=== PATIENT | female | born 1930 | race Caucasian/White ===

== ENCOUNTER 2016-03-11 07:53 | Inpatient (IN) | payer MEDICARE, OTHER ==
[2016-03-11] VITALS (9 sets, daily range): BP systolic 162–203; BP diastolic 77–100; PULSE 79–124; RESP 14–24; O2SAT 95–100
[~2016-03-11] VITALS: Ht 154.9 cm; Wt 55.2 kg
[~2016-03-11 07:53] MED LIST: ALBU8.5H2 INHALATION; ASPI325T32 PO; FENT-2 TOP; LEVO112T4 PO; LORA1TAB PO; LOSA100T29 PO; OMEP20TA86 PO; OXYC10TA8 PO; ROPI2TAB3 PO; SPIR50TA2 PO; VERA240T PO; ZOLP5TAB6 PO
--- NOTE | 2016-03-11 08:05 | ED.REPORT ---
HPI-General Illness Date of Service Mar 11, 2016 ED Provider: Aylin Derrick Patient is an 85 year old female who presents to the ED via EMS complaining of restless leg syndrome exacerbation onset yesterday. Associated symptoms include fever onset a few days ago. She cannot sit still and is adamant about standing at bedside so she can move around. She denies cough, SOB, abdominal pain, vomiting, chest pain, or any other symptoms. She has been struggling with restless leg syndrome for 3-4 years but has never had a flare-up like this before. She took 3 doses of her Ropinirole and Mirapex without relief at 1900 last night. She denies any new medications. She is currently between doctors but seeing Dr. Orion Angulo. Nursing Notes Stated Complaint: CHRONIC LEG PAIN Chief Complaint: General Complaint Nursing Notes Reviewed: Yes Allergies: Coded Allergies: cephalexin (Verified Allergy, Severe, Rash,Itching,, 05/04/15) duloxetine (Verified Allergy, Severe, Rash, 05/04/15) cefazolin (Verified Allergy, Intermediate, RASH, 02/07/15) NSAIDS (Non-Steroidal Anti-Inflamma (Verified Allergy, Mild, GI intolerance., 02/07/15) venlafaxine (Verified Allergy, Mild, Visual disturbance, 02/07/15) gabapentin (Verified Allergy, Unknown, fatigue and diarrhea, 02/07/15) lisinopril (Verified Allergy, Unknown, Cough, 02/07/15) sertraline (Verified Allergy, Unknown, fatigue, 02/07/15) doxycycline (Verified Adverse Reaction, Severe, Nausea,Vomiting, 05/04/15) hydroxyzine (Verified Adverse Reaction, Intermediate, sensitivity: hands and feet get blisters, 02/07/15) Proton Pump Inhibitors (Verified Adverse Reaction, Unknown, epigastric pain, 05/04/15) prednisolone (Verified Adverse Reaction, Unknown, diarrhea, 05/04/15) Scheduled Albuterol HFA (Proair HFA) 8.5 Gm Hfa.aer.ad 2 PUFFS INHALATION Q4H Aspirin (Aspirin) 325 Mg Tablet 325 MG PO BID Fentanyl 75 mcg/hr Patch (Fentanyl 75 mcg/hr Patch) 1 Each Patch.td72 1 EACH TOP Q3D Levothyroxine (Levothyroxine) 112 Mcg Tablet 112 MCG PO DAILY Losartan Potassium (Losartan Potassium) 100 Mg Tablet 100 MG PO DAILY Omeprazole (Omeprazole) 20 Mg Tablet.dr 20 MG PO DAILY Ropinirole (Ropinirole) 2 Mg Tablet 1-2 MG PO Evening 2-3 hours before bedtime Spironolactone (Spironolactone) 50 Mg Tablet 50 MG PO DAILY Verapamil ER (Calan SR) 240 Mg Tablet 240 MG PO DAILY Zolpidem (Zolpidem) 5 Mg Tablet 2.5-5 MG PO HS Scheduled PRN Lorazepam (Lorazepam) 1 Mg Tablet 0.5-1 MG PO Q12H PRN PRN For Anxiety oxyCODONE (oxyCODONE) 10 Mg Tablet 10 MG PO Q4-6H PRN PRN For Pain General Time Seen by MD: 08:05 Chief Complaint Other (Restlessness) Hx Obtained From: Patient, EMS Arrived By: Ambulance Sudden in Onset?: Yes Onset Occurred: Yesterday Symptom Duration: Since onset Similar Sx Previous: Yes Past Medical History Past Medical History Notes: Past Medical History 1. Transient ischemic attack with right upper extremity weakness, improved significantly. CT scan and MRI of the brain were negative for any acute stroke. 2. Hypertension. 3. Chronic kidney disease stage III. 4. Hypothyroidism. 5. History of restless leg syndrome. 6. Obstructive sleep apnea. 7. Hyperlipidemia. 8. Chronic lower extremity lymphedema. 9. Gastroesophageal reflux disease. 10. Diverticulosis. 11. Osteoporosis. 12. Chronic depression. 13. Chronic fatigue syndrome. 14. Vitamin D deficiency . 15. Urinary tract infection. 16. Pancreatitis 17. Dysphagia with Ennis's esophagitis 18. Hiatal hernia 19. Right wrist septic arthritis 20. Post-herpatic neuralgia 21. Trigeminal neuralgia 22. history of heavy alcohol use 23. 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 Left hip fracture 25. On chronic on Lovenox prophylactic therapy. 26. Heart murmur with "leaky heart valve" 27. Anxiety 28. MRSA Reports: Asthma, Cancer (Skin), GERD, Transient ischemic attack Past Surgical History Left shoulder replacement Right total knee replacement Lumbar spine surgery x3 Left hip replacement Reports: Cataract surgery, Cholecystectomy, Hysterectomy Family History noncontributory Smoking History Never Smoker Social History Lives at [facility] Previous suicide attempt Alcohol Use: In recovery Drug Use: Denies drug use Other Social History: Good social support, Local resident Occupation lives by self, working on going to [employer] Ambulatory Status Cane Review of Systems +restlessness Full Review of Systems Constitutional: Reports: Fever Respiratory: Denies: Non-productive cough, Shortness of breath Cardiovascular: Denies: Chest pain GI: Denies: Abdominal pain, Vomiting Complete sys rev & neg: except as marked. Physical Exam Vital Signs Vital Signs Date Time Temp Pulse Resp B/P Pulse Ox O2 Delivery O2 Flow Rate FiO2 03/11/16 08:03 36.6 106 17 162/82 95 Room Air Initial VS: Reviewed Head / Eyes: Atraumatic, Normocephalic Respiratory: No respiratory distress Cardiovascular: Regular rate & rhythm Abdomen / GI: Soft, Non-tender Skin: Warm, Dry Neurologic: Alert, Oriented, Nonfocal Psychiatric: Mood/affect normal, Behavior normal, Normal thought content General/Constitutional: Awake, Alert, Well developed Behavior: Positive: Agitated, Restless Swaying in room but denies pain Moves all 4 extremities Interpretation & Diagnostics Lab Results Interpretation Result Diagram: 03/11/16 0850 03/11/16 0850 Test 03/11/16 08:30 03/11/16 08:33 03/11/16 08:40 03/11/16 08:50 Urine Color Straw (YELLOW) Urine Appearance Hazy (CLEAR,HAZY) Urine pH 7.0 (5.0-8.0) Urine Specific [place] 1.010 (1.003-1.035) Urine Protein Negativemg/dL (NEG,TRACE) Urine Glucose (UA) Negativemg/dL (NEGATIVE) Urine Ketones Negativemg/dL (NEGATIVE) Urine Occult Blood Trace (NEGATIVE) Urine Nitrite Negative (NEGATIVE) Urine Bilirubin Negative (NEGATIVE) Urine Urobilinogen Normalmg/dL (NORMAL) Urine Leukocyte Esterase Small (NEGATIVE) Urine RBC 0-2/hpf (0-2) Urine WBC 0-5/hpf (0-5) Urine Epithelial Cells Occasional/hpf (NONE-MOD) Urine Crystals None seen (NONE SEEN) Urine Bacteria Few/hpf (NONE-FEW) Urine Hyaline Casts None/lpf (NONE) Urine Granular Casts None seen (NONE SEEN) Urine Waxy Casts None seen (NONE SEEN) Urine Red Blood Cell Casts None seen (NONE SEEN) Urine White Blood Cell Casts None seen (NONE SEEN) Urine Mucus None seen (None Seen) Urine Trichomonas None seen (NONE SEEN) Urine Yeast None (NONE SEEN) Urinalysis Comment None Urine Culture Reflexed Indicated Hold Urine Received (Received) Troponin T 0.012ug/L (0.0-0.011) White Blood Count 8.2th/mm3 (3.8-10.1) Red Blood Count 3.89mil/mm3 (3.90-5.20) Hemoglobin 10.4g/dL (12.0-15.6) Hematocrit 33.2% (35.0-46.0) Mean Corpuscular Volume 85.3fL (81-100) Mean Corpuscular Hemoglobin 26.7pg (27.0-35.0) Mean Corpuscular Hemoglobin Concent 31.3% (32.0-37.0) Red Cell Distribution Width 14.9% (12.3-15.4) Platelet Count 399bil/L (150-400) Neutrophils (%) (Auto) 78.7% (40-74) Lymphocytes (%) (Auto) 9.9% (14-46) Monocytes (%) (Auto) 9.4% (4-12) Eosinophils (%) (Auto) 1.7% (0-5) Basophils (%) (Auto) 0.2% (0-3) Sodium Level 138mEq/L (134-144) Potassium Level 4.5mEq/L (3.5-5.2) Chloride Level 99mEq/L (97-108) Carbon Dioxide Level 25mmol/L (18-29) Blood Urea Nitrogen 21mg/dL (8-27) Creatinine 1.29mg/dL (0.57-1.00) Estimat Glomerular Filtration Rate 56mL/min (>59) Glucose Level 119mg/dL (60-99) Calcium Level 10.1mg/dL (8.5-10.1) Total Bilirubin 0.4mg/dL (0.0-1.2) Aspartate Amino Transf (AST/SGOT) 24U/L (0-50) Alanine Aminotransferase (ALT/SGPT) 12U/L (0-32) Alkaline Phosphatase 104U/L (25-165) Total Protein 7.4g/dL (6.4-8.4) Albumin 4.0g/dL (3.4-5.0) Test 03/11/16 08:59 Hold Evans Top Tube Received (Received) ECG Interpretation ECG Interpretation: Sinus tachy, otherwise normal Rate 107 Time: 10:51 Interpreted by: ED physician X-Ray Chest Interpretation Chest Xray Interpretation: IMPRESSION: Patient is significantly tilted and rotated rightward with poor quality visualization of the right mid and upper lung. No definite acute disease. Dictated by: Edgardo Bain M.D. on 03/11/2016 at 11:37 Approved by: Edgardo Bain M.D. on 03/11/2016 at 11:37 View: Portable, 1 view Interpretation / Wet Read by: Interpret - Radiologist CT Head Interpretation CT BRAIN: IMPRESSION: 1. No acute intracranial process. 2. Moderate atrophy and chronic microvascular ischemic changes. Dictated by: Teena Arora M.D. on 03/11/2016 at 12:44 Approved by: Teena Arora M.D. on 03/11/2016 at 12:44 Study: Head CT no contrast Interpretation / Wet Read by: Interpret - Radiologist Re-Eval/Medical Decision Med Decision/Clinical Course Patient comes in agitated and restless reportedly having signs of restless leg though whole-body restlessness and inability to stop her motion, she denies pain. This could be related to polypharmacy at home and despite multiple medications in the ER she is continued to be restless agitated and upset, and vitamins in the ER had simply continue make her more and more drowsy and a fall risk. Unfortunately at this point despite a normal workup there is no meaningful way of sending this patient home safely at this time and she will be admitted. Time of Eval: 09:57 Re-Evaluation/Progress Note: Rechecked patient to go over med list. She states that she took 3 total pills of Mirapex and/or Ropinirole. Time of Eval: 10:37 Patient Status: Condition improved Re-Evaluation/Progress Note: Rechecked patient. She reports feeling better. Time of Eval: 14:03 Re-Evaluation/Progress Note: Discussed plan for admission. Patient understands and agrees with plan. All questions addressed at this time. Consultation : Referral / Consult Name: Helga Freedman DO Consulted With: Hospitalist Call Returned at: 13:55 Sorter Lumber Straightener: Will see patient, Agrees with eval, Agrees with plan, Accepts admit Note: Discussed patient's case. Accepts admit. Counseled Regarding: Diagnosis, Lab results, Need for admission Discharge & Departure Primary Impression: Altered mental status Additional Impression: Restless leg syndrome Disposition: ADMITTED TO HOSPITAL Referrals: Orion Angulo (PCP) Scribe Attestation Portions of this note were transcribed by Fransisca Cobb. I, Dr. Viera personally performed the history, physical exam and medical decision-making; I reviewed and confirmed the accuracy of the information in the transcribed note. Signed by: Fransisca Cobb 03/11/16, 1413 copies to: Orion Angulo Timothy S DO Mar 11, 2016 08:05 FRANSISCA COBB Mar 11, 2016 08:24
[2016-03-11] MEDS ORDERED: LORazepam 1 mg Tablet PO ONE (08:35)
[2016-03-11 09:04] LABS: BASOPHILS % (AUTO) 0.2 % (0-3); EOSINOPHILS % (AUTO) 1.7 % (0-5); MONOCYTES % (AUTO) 9.4 % (4-12); Mean Corpuscular Hemoglobin 26.7 pg (27.0-35.0); Mean Corpuscular Volume 85.3 fL (81-100); NEUTROPHILS % (AUTO) 78.7 % (40-74); Platelet Count 399 bil/L (150-400)
[2016-03-11 09:44] LABS: APPEARANCE,URINE HAZY (CLEAR,HAZY); COLOR,URINE STRAW (YELLOW); OCCULT BLOOD,URINE TRACE (NEGATIVE); UROBILINOGEN,URINE NORMAL (NORMAL)
[2016-03-11] MEDS ORDERED: Haloperidol 5 mg/mL Inj IVPUSH PRN (10:50)
--- NOTE | 2016-03-11 11:38 | DRSVH ---
PROCEDURE: X-RAY CHEST ONE VIEW, PORTABLE ([id number]) INDICATIONS: CONFUSION TECHNIQUE: One view of the chest was acquired. COMPARISON: [facility], CR, XR CHEST 2VW, 01/19/2016, 13:56. FINDINGS: Surgical changes and devices: Humeral arthroplasty on the left, no device loosening or disruption fou nd.. Surgical clips in the epigastrium Lungs and pleura: No pleural effusions or pneumothorax. Lungs are difficult to assess due to patien t rotation and tilt rightward but no definite pneumonia found. Mediastinum: Mediastinal contours appear normal. Heart size is normal. Bones and chest wall: No suspicious bony lesions. Overlying soft tissues appear unremarkable. IMPRESSION: Patient is significantly tilted and rotated rightward with poor quality visualization of the right mid and upper lung. No definite acute disease. Dictated by: Edgardo Bain M.D. on 03/11/2016 at 11:37 Approved by: Edgardo Bain M.D. on 03/11/2016 at 11:37
[2016-03-11] MEDS ORDERED: Ketamine 10 mg/mL 20 mL Inj IV ONE (12:05)
--- NOTE | 2016-03-11 12:46 | DRSVH ---
PROCEDURE: CT BRAIN WITHOUT CONTRAST ([id number]) INDICATIONS: altered mental status TECHNIQUE: Noncontrast 4.5 mm thick angled axial sections acquired from the foramen magnum to the vertex, with c oronal reformats. COMPARISON: [facility], CT, CT BRAIN WO CON, 03/06/2015, 19:11. FINDINGS: Image quality: Mild motion is present, limiting fine detail evaluation within some regions. CSF spaces: Basal cisterns are patent. No extra-axial fluid collections. The ventricles are symmet eligio in size and shape. Brain: No intracranial bleeds or masses. There is cerebral volume loss for age, with resultant vent ricular and sulcal prominence. There are periventricular and deep white matter chronic small vessel ischemic changes. There is intracranial internal carotid artery atherosclerosis. Skull and face: Calvarium and visualized facial bones appear intact, without suspicious lesions. Sinuses: Visualized sinuses and mastoids are clear. IMPRESSION: 1. No acute intracranial process. 2. Moderate atrophy and chronic microvascular ischemic changes. Dictated by: Teena Arora M.D. on 03/11/2016 at 12:44 Approved by: Teena Arora M.D. on 03/11/2016 at 12:44
[2016-03-11] MEDS ORDERED: Ondansetron 2 mg/mL 2 mL Inj IVPUSH PRN ×2 (14:15→14:20)
[2016-03-11] MEDS ORDERED: Alum-Mag Hydrox-Simeth 30 mL Suspension PO PRN ×2 (14:15→14:20)
[2016-03-11] MEDS ORDERED: Polyethylene Glycol (PEG) 17 Gm Powder PO PRN (14:20)
[2016-03-11] MEDS ORDERED: LORazepam 1 mg Tablet PO PRN (14:30)
[2016-03-11 16:36] LABS: Mean Corpuscular Hemoglobin 26.9 pg (27.0-35.0); Mean Corpuscular Volume 83.8 fL (81-100)
[2016-03-11] MEDS ORDERED: PEG/Electrolytes 4,000 mL Solution PO ONE (16:45)
--- NOTE | 2016-03-11 17:00 | NUR ---
Admission assessment/condition Patient arrived from ED in [facility] for patient safety. Bowel incontinent upon arrival. Significant amount of serosanguinous blood coming out of patient rectum. Incontinent brief completely saturated with blood at this time. Report from ED stated this was vaginal bleeding, which upon further assessment, appears to be rectal bleeding only. Patient responds to voice, stating name and place, but unable to answer further questions. Son at bedside states that she was "scheduled to have GI surgery this am with Dr. Rianes" but could not state what kind of surgery. Consequently, patient felt too ill to go to surgery and cancelled. Dr. Freedman notified of patient condition and surgery information. Dr. Raines in OR at this time also paged and notified.
[2016-03-11] MEDS ORDERED: MeTOProlol 1 mg/mL 5 mL Inj IV ONE (17:50)
--- NOTE | 2016-03-11 18:30 | NUR ---
BP/Bleeding/Aspiration risk/condition change Patient BP 180 systolic, 5mg IVP Lopressor given. Will recheck BP in 15 minutes for results. Patient increasingly unresponsive. Continues to saturate incontinent brief, jose r pad, and incontinent pad with copious amounts of serosanguineous blood coming from rectum approximately hourly. Continues to have soft/loose, but not watery BM output. Requiring incontinent changes approximately hourly. Vomited signifigant, but unmeasurable amount of emesis while unresponsive. Emesis appears to be mixture of bile, stool particulate, with particulate of mario red, bloody tissue and mucous combination. MD informed of patient condition changing. Addendum: 03/11/16 at 1857 by CHRISTEL PATEL RN Patient placed up on 2-3 pillows at this time to prevent aspiration risk. Due to being in full enclosure SOMA bed, HOB is unable to be adjusted. Notified MD of concerns for aspiration.
--- NOTE | 2016-03-11 18:40 | NUR ---
BP Patient given 5mg IVP Metoprolol for BP. Recheck at 15 mins with no change in BP. BP remains >180 systolic. Reported to .
--- NOTE | 2016-03-11 18:50 | NUR ---
pt condition: Pt mentation and physical appearance appear to be declining after multiple bloody bowel movements and one emesis with blood particulates present. Vital signs stable. labs stable. Dr Freedman notified x2 of pts continued bloody briefs, emesis and appearance of decline. GI consult in am ordered. Fluids ordered. Watching for signs of aspiration after last emesis.
--- NOTE | 2016-03-11 19:15 | NUR ---
Surgery Evaluation Dr. Raines on unit to evaluate patient. He paged pm hospitalist Ad to come to the floor and evaluate patient status, ordered labs, including Blood Cultures and Lactic. Tentative plan for patient to be transferred to PCC/CCU unit for closer monitoring.
--- NOTE | 2016-03-11 19:29 | PCM.HPMED ---
Subjective Date of Service Mar 11, 2016 Primary Provider: Admitting Physician: Helga Freedman DO Primary Care Physician: Siva Voss MD Attending Physician: Helga Freedman DO Allergies Coded Allergies: cephalexin (Verified Allergy, Severe, Rash,Itching,, 05/04/15) duloxetine (Verified Allergy, Severe, Rash, 05/04/15) cefazolin (Verified Allergy, Intermediate, RASH, 02/07/15) NSAIDS (Non-Steroidal Anti-Inflamma (Verified Allergy, Mild, GI intolerance., 02/07/15) venlafaxine (Verified Allergy, Mild, Visual disturbance, 02/07/15) gabapentin (Verified Allergy, Unknown, fatigue and diarrhea, 02/07/15) lisinopril (Verified Allergy, Unknown, Cough, 02/07/15) sertraline (Verified Allergy, Unknown, fatigue, 02/07/15) doxycycline (Verified Adverse Reaction, Severe, Nausea,Vomiting, 05/04/15) hydroxyzine (Verified Adverse Reaction, Intermediate, sensitivity: hands and feet get blisters, 02/07/15) Proton Pump Inhibitors (Verified Adverse Reaction, Unknown, epigastric pain, 05/04/15) prednisolone (Verified Adverse Reaction, Unknown, diarrhea, 05/04/15) PMH Social History Hx Alcohol Use: Yes Hx Substance Use: No Hx Tobacco Use: No Smoking Status: Never Smoker Exam Vital Signs Vital Sign - Last Date Time Temp Pulse Resp B/P Pulse Ox O2 Delivery O2 Flow Rate FiO2 03/11/16 17:38 36.7 90 16 189/80 97 Room Air Lab and Diagnostics Result Diagram: 03/11/16 1631 03/11/16 0850 Assessment & Plan HPI: 85-year-old female presents with the complaint of restless leg syndrome. Patient states that she is a 3-4 year history of restless leg however last night she was unable to find relief from the restless leg. She took 3 doses of her Ropinirole and Mirapex without relief at 1900 last night. Information was collected from the ED attending who stated that he also attempted to give the patient another dose of pramipexole, along with Ativan and Haldol. The patient was stable while being worked up by the emergency room. When I presented in the afternoon to examine the patient and she was very somnolent and minimally responsive. It was then found that the patient was having mario blood from the rectum. Patient's daughter and son-in-law arrived later and were able to provide further history. The patient was supposed to have surgery with Dr. Raines today however the patient called stating that she was not feeling well and wanted to cancel the surgery. The patient has a congenital malrotation of the gut and the surgery was to going decompress any medications as the patient has had chronic one to instructions and is currently only on a liquid diet. PMHx: 1. Transient ischemic attack with right upper extremity weakness, improved significantly. CT scan and MRI of the brain were negative for any acute stroke. 2. Hypertension. 3. Chronic kidney disease stage III. 4. Hypothyroidism. 5. History of restless leg syndrome. 6. Obstructive sleep apnea. 7. Hyperlipidemia. 8. Chronic lower extremity lymphedema. 9. Gastroesophageal reflux disease. 10. Diverticulosis. 11. Osteoporosis. 12. Chronic depression. 13. Chronic fatigue syndrome. 14. Vitamin D deficiency . 15. Urinary tract infection. 16. Pancreatitis 17. Dysphagia with Ennis's esophagitis 18. Hiatal hernia 19. Right wrist septic arthritis 20. Post-herpatic neuralgia 21. Trigeminal neuralgia 22. history of heavy alcohol use 23. 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 Left hip fracture 25. On chronic on Lovenox prophylactic therapy. 26. Heart murmur with "leaky heart valve" 27. Anxiety 28. 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 Please see HPI for perninent positives. Physical Exam: GEN: Patient was somnolent and minimally responsive HEENT: Neck soft supple, trachea midline, nomocephalic/atraumatic CV: +S1/S2, RRR, +murmur auscultated Respiratory: CTAB, no wheezes, rales, rhonchi GI: +bowel sounds x4, soft, compressible, mild TTP, mario blood from the rectum EXT: no c/c/e Psych: mood very somnolent Assessment and Plan 85-year-old female who presented with restless leg syndrome and developed a GI bleed GI bleed -- Nothing by mouth -- IV Zofran every 4 when necessary vomiting -- GoLYTELY -- IV fluids normal saline running at 50 mL an hour -- GI consulted Dr. Reinoso Hypertension. -- Stop home medication -- Start hydralazine 5 mg IV every 6 --We will continue to monitor -- Restart home medication once patient's is able to take medications by mouth Leukocytosis -- White blood cell count 15.9 -- Blood cultures -- Metronidazole, Cipro -- Stool culture Elevated troponins -- Troponin 0.012 most likely a troponin leak patient has a history of elevated troponins chronically -- We will continue to monitor patient for any signs of possible NSTEMI History of CKD stage III -- Creatinine currently 1.29 -- Continue IV fluids -- We will reassess in the morning Restless leg syndrome -- Currently holding all medications as the patient is now somnolent and unable to take by mouth medications will restart home medications once patient is cognizant. CODE STATUS: DNR/DNI Resuscitation Status: DNR/DNI:Do Not Resuscitate/Intubate Helga Freedman DO Mar 11, 2016 19:29
[2016-03-11] MEDS: 0.9% Sodium Chloride 1,000 ML IV SCH (19:45)
[2016-03-11 20:12] LABS: BASOPHILS % (AUTO) 0.1 % (0-3); EOSINOPHILS % (AUTO) 0 % (0-5); MONOCYTES % (AUTO) 4.4 % (4-12); Mean Corpuscular Hemoglobin 27.5 pg (27.0-35.0); Mean Corpuscular Volume 83.7 fL (81-100); Platelet Count 428 bil/L (150-400)
--- NOTE | 2016-03-11 20:20 | PROG NOTE ---
[address] [address] PROGRESS NOTE PATIENT: EDITH CALDERON : 1930 MR#: [id number] ADMIT: 03/11/2016 JOB ID: [id number] DATE: 03/11/2016 SUBJECTIVE: The patient is an 85-year-old female who is very familiar to me. 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 Given the recurrent episodes, after discussion he had agreed to proceed with a Manuel's procedure today, in fact. However, a couple of days ago the patient called my office wanting to cancel surgery because she was not feeling very well. I talked to her on the phone and she could not quite pinpoint what was wrong but said that she just was feeling very weak and wanted to see her primary care physician before moving forward with surgery. I was notified by nursing today that the patient had been admitted with a GI bleed. I talked with the hospitalist as she wanted to know what kind of surgery the patient was supposed to have. Later this afternoon, when I was rounding on other patients, I was approached by nursing, concerned about the patient, and they asked if I would be willing to see her. It seems that her mental status has declined significantly since admission and she has been having profuse watery diarrhea. I reviewed her history and it seems that she was admitted with an diagnosis of restless legs syndrome exacerbation and then there was some sort of a lower GI bleed. Upon presentation to the emergency department she was tachycardic up to 124. Her heart rate has been down since. Labs were checked and in the morning her white blood cell count was 8.2, this afternoon it is up to 15.9. Her hematocrit has remained exactly the same. Her creatinine this morning was mildly elevated at 1.29. Troponin 0.012. The only imaging obtained was a chest x-ray and a CT of the head. OBJECTIVE: This evening when I examined her she is afebrile with a temperature 36.1 degrees, heart rate of 80 beats per minute, blood pressure 188/77, satting 97% on room air. She had just received an IV dose of metoprolol recently. She is arousable and does seem to recognize me and is able to answer questions. She denies any abdominal pain, but by exam has abdominal tenderness and mild distention. She does appear somewhat pale. She has a sinus rhythm with no appreciated murmurs, rubs, or gallops. Her lungs are clear to auscultation bilaterally. ASSESSMENT AND PLAN: This is a 85-year-old female with multiple medical comorbidities and a history of intestinal malrotation, who was actually scheduled to undergo a Manuel procedure today, admitted with an acute decline in her health. I shared the nurses concern about her current status. She denies any abdominal pain, though she does have a tender belly. This presentation certainly is not similar to her prior episodes of acute duodenal obstruction. I think midgut volvulus is highly unlikely, but certainly must be kept in the differential, as should be other processes that could lead to intestinal compromise such as internal hernia. I think it is certainly possible that she may be suffering from Clostridium difficile or some other infectious etiology. She is having profuse watery diarrhea. Nurses showed me what was coming out and I certainly would not describe it as melena or hematochezia. I discussed her care with the night hospitalist. I do think that empiric antibiotics for leukocytosis with coverage including Clostridium difficile would be appropriate. I have taken the liberty of ordering some more labs including lactic acid. If her lactic acid is high, imaging of her abdomen may be appropriate. I have also discussed the case with the on-call surgeon, Dr. Marie. He plans on seeing the patient after he is done with his current case, probably around 9 p.m.
[2016-03-11] MEDS: hydrALAZINE 20 mg/mL Inj IV SCH (20:28)
[2016-03-11] MEDS ORDERED: levoFLOXacin Inj 750 MG in IV Premix 1 EACH IV SCH (20:30)
[2016-03-11] MEDS: Pantoprazole 4 mg/mL 10 mL Inj IVPUSH SCH (20:50)
--- NOTE | 2016-03-11 22:00 | NUR ---
Transfer Pt arrived on unit in bed. Pt Ox3 to orientation question. Pt mumbles speech, unable to hold attention d/t sedation. Pt later calling out for "Jose Roberto" and asking out of place questions. VSS. No pain symptoms observed. See flowsheet for full assessment.
--- NOTE | 2016-03-11 23:21 | NUR ---
Sero-Sang drainage Pt brief soaked with sero-sang fluid. Pt turned on side to visualize origin, fluid appears to be vaginal discharge rather than rectal. Dr Marie notified. H&H stable at this time. Order received to place jean-baptiste per Dr. Al.
[2016-03-11] MEDS: Vancomycin 125 mg Oral Capsule PO SCH (23:30)
--- NOTE | 2016-03-11 23:33 | PROG NOTE ---
[address] [address] PROGRESS NOTE PATIENT: EDITH CALDERON : 1930 MR#: [id number] ADMIT: 03/11/2016 JOB ID: [id number] DATE: 03/11/2016 SUBJECTIVE: The patient is seen in follow up for General Surgery. She was seen earlier by Dr. Raines. Follow-up CBC is essentially unchanged from 4:30 this afternoon. The chemistries remained stable. Creatinine is down to 1.06, and lactic acid is 1.5 LFTs remain normal. To to my examination, her abdomen is firm and a bit distended. I have ordered an acute abdominal series with two views of the abdomen. The films have been taken and I have reviewed them but the radiologist has not had a chance to look at them. To my reading, there is no sign of free air, no sign of small bowel obstruction, no sign of bowel volvulus, essentially nonspecific bowel gas pattern. I will review the Benitok's report once they are read. Nursing reports to me that they feel that her bleeding is vaginal rather than rectal. At this point, she is hemodynamically stable, has repeat labs pending in another 6 hours in the morning. Dr. Raines will see her again tomorrow morning and decide whether she needs more advanced imaging of the abdomen such as an abdominal CT scan..
[2016-03-12] VITALS (8 sets, daily range): BP systolic 158–189; BP diastolic 71–89; PULSE 62–97; RESP 18–22; O2SAT 93–99
--- NOTE | 2016-03-12 00:02 | NUR ---
Mcintosh 14 Fr catheter placed at 0000. Balloon inflated with 10cc water. Mcintosh draining dark pink/red fluid. Dr. Al made aware. Orders received for AM labs.
[2016-03-12] MEDS ORDERED: metroNIDAZOLE Inj 500 MG in IV Premix 1 EACH IV SCH (00:30)
[2016-03-12 02:51] LABS: BASOPHILS % (AUTO) 0.1 % (0-3); EOSINOPHILS % (AUTO) 0 % (0-5); MONOCYTES % (AUTO) 5.2 % (4-12); Mean Corpuscular Hemoglobin 26.9 pg (27.0-35.0); Mean Corpuscular Volume 83.5 fL (81-100); NEUTROPHILS % (AUTO) 91.1 % (40-74); Platelet Count 416 bil/L (150-400)
[2016-03-12 03:08] LABS: INR 0.99 ratio
[2016-03-12] MEDS: hydrALAZINE 20 mg/mL Inj IV SCH ×4 (04:10→21:03)
[2016-03-12] MEDS: 0.9% Sodium Chloride 1,000 ML IV SCH ×4 (04:37→21:25)
[2016-03-12] MEDS: Vancomycin 125 mg Oral Capsule PO SCH (05:30)
[2016-03-12] MEDS ORDERED: Pantoprazole 40 mg ER24 Tablet PO SCH (06:30)
[2016-03-12] MEDS ORDERED: Verapamil SR 240 mg ER12 Tablet PO SCH (08:30)
--- NOTE | 2016-03-12 08:40 | DRSVH ---
PROCEDURE: X-RAY ABDOMEN WITH ERECT AND/OR DECUBITUS VIEWS ([id number]) INDICATIONS: abdominal distention, sepsis of unclear etiology TECHNIQUE: 2 views of the abdomen were acquired. COMPARISON: None. FINDINGS: Surgical changes and devices: Surgical clips are projected over the gallbladder fossa and the gastroe sophageal junction. Left hip arthroplasty is intact. Bowel: No pneumoperitoneum. The bowel gas pattern is normal. Soft tissues: No masses; visualized solid organ contours appear normal in size. No suspicious abdom inal calcifications. Bones: No suspicious bony abnormalities. Moderate degenerative changes are present at the right hip. IMPRESSION: No acute intra-abdominal findings. Dictated by: Meena Clay M.D. on 03/12/2016 at 8:38 Approved by: Meena Clay M.D. on 03/12/2016 at 8:38
--- NOTE | 2016-03-12 09:37 | PROG NOTE ---
[address] [address] PROGRESS NOTE PATIENT: EDITH CALDERON : 1930 MR#: [id number] ADMIT: 03/11/2016 JOB ID: [id number] DATE: 03/12/2016 SUBJECTIVE: The patient is seen in followup for her hospitalization yesterday. Yesterday evening the patient was moved to the ICU. Her labs that I obtained did not look too bad. She continued to have leukocytosis, but a lactic acid looked fine. Plain films were obtained by my colleague, Dr. Marie, and I agree that they show a nonspecific gas pattern. Overnight a Mcintosh catheter was placed with a large volume of again blood-tinged fluid coming out. Initially it was felt that she was having profuse watery diarrhea. Then, it was felt that perhaps this is vaginal output. The Mcintosh placement would seem to suggest this is actually urinary incontinence. She has remained afebrile overnight. She has hypertension but otherwise is hemodynamically normal. This morning, she is arousable and continues to state that she feels lousy. Her belly is soft, nontender, nondistended. Yesterday was it was somewhat tender and distended. I suspect that the Mcintosh placement has relieved a distended bladder and her abdominal examination is completely benign. Her white blood cell count is 12.6 this morning. Her hematocrit is stable at 34.4. Creatinine is 1.14. The rest of her electrolytes are normal. ASSESSMENT AND PLAN: This is an 85-year-old female with a history of with whom I have plans to do a lap procedure yesterday who was admitted for restless legs syndrome but certainly has more going on. From a surgical standpoint, I am reassured both by the normal lactic acid, the abdominal films, and her examination this morning. Though I suspect that something a little bit more serious than restless leg is going on, I do not think this is of surgical etiology. I certainly remain available should any surgical questions arise.
[2016-03-12] MEDS: Pantoprazole 4 mg/mL 10 mL Inj IVPUSH SCH (10:00)
--- NOTE | 2016-03-12 10:27 | PCM.PNMED ---
Subjective Date of Service Mar 12, 2016 Subjective The patient is sedated from Haldol in the ED as well as ketamine. She is able to monitor that she is comfortable. Exam Vital Signs Vital Sign - Last Date Time Temp Pulse Resp B/P Pulse Ox O2 Delivery O2 Flow Rate FiO2 03/12/16 08:17 37.8 88 22 172/72 96 Room Air Intake and Output 03/11/16 03/11/16 03/12/16 Cumulative From/Thru 15:00 23:00 07:00 03/11/16 08:03 - 03/12/16 06:24 Intake Total 0 ml 1226 ml 1226 ml Output Total 2025 ml 2025 ml Balance 0 ml -799 ml -799 ml Intake Oral 0 ml 0 ml 0 ml IV Total 1226 ml 1226 ml Output Urine Total 2025 ml 2025 ml # Voids 14 2 16 Exam Patient is somnolent. No acute distress. She is ventilating adequately. Symmetric pupils Neck supple normal JVP. Lungs are clear with normal effort and no focal findings. Heart is regular with a 2/6 systolic murmur in the right sternal border. Abdomen is soft and nondistended with normal active bowel tones. Extremities are both wrapped with a multilayer dressing. Normal cap refill in both feet at all toes. IVs and Medications Medications Reviewed: Medications were reviewed in detail Lab and Diagnostics Result Diagram: 03/12/16 0230 03/12/16 0230 Assessment & Plan 1. Acute episode of anxiety, agitation and restless legs. POA. This required multiple medications in the ED. This is improved. She is now sedated. 2. Fever, POA. The patient has a urine dip positive for white cells as well as hematuria. She was given one-time doses of levofloxacin and metronidazole. At this point we will stop these antibiotics and follow her cultures. She was also given oral vancomycin cannot take oral medications because of her sedation. Cultures are pending. We will add a respiratory PCR panel. 3. Hypertension. POA. We will use hydralazine IV scheduled at the current time as patient cannot take by mouth meds. 4. Chronic kidney disease stage III. POA. 5. Hypothyroidism. POA. We will resume by mouth Synthroid the next day if she fails to improve or convert IV. 6. History of restless leg syndrome. POA. We will follow clinically resume usual medications when able. 7. Obstructive sleep apnea. POA. We will use bedside oximetry to monitor her respiratory status given recent medications as well. 8. Chronic lower extremity lymphedema. POA. Wound consult to evaluate both legs and takedown dressings to rule out evidence of skin infection or ulcers. 9. MRSA history. 10. Hematuria. This may relate to a atraumatic Mcintosh insertion. We will cover her for possible urinary tract infection awaiting cultures of urine and blood and follow the hematuria clinically. There is also report of possible rectal bleeding. This is not validated. We will follow her clinically. Pain Evaluation: Adequate Pain Control VTE Mechanical Devices: Intermittant Pneumatic CD Resuscitation Status: DNR/DNI:Do Not Resuscitate/Intubate Time spent 25 minutes Mike Alvarez MD Mar 12, 2016 10:27
--- NOTE | 2016-03-12 15:11 | NUR ---
Social Work: Attempted Assessment D: Per EMR review, pt is an 85 year old female admitted for altered mental status. Pt is Medicare with [employer] supplement. PCP is is Siva Voss MD. NOK is Jevon Yang, Son, . Readmit score not entered at this time. Advanced directives on file. RADIOLOGIC TECH attempted to complete assessment with pt however pt remains very somnolent and not appropriate for assessment at this time. RADIOLOGIC TECH attempted to contact pt's NOK. No answer. Left message requesting return phone call to complete initial assessment and discharge planning. A: Pt previously resided at [facility] and open with [facility] for RN, PT. Access provided P:RADIOLOGIC TECH to continue to attempt assessment with family and continue to follow. ALICIA Starr
[2016-03-12] MEDS: Ondansetron 2 mg/mL 2 mL Inj IVPUSH PRN ×2 (17:24→22:10)
--- NOTE | 2016-03-12 17:55 | NUR ---
Somnolent/nausea/fever/HTN/Hematuria Cardiac: Unable to assess bilateral pulses or lower leg edema due to dressing wraps from out patient woundcare. Woundcare changed dressings this afternoon. Cap refil present. Pt denies CP, Tele: SR 80s-90s. Resp: Pt denies SOB, SPO2 mid to high 90s on RA. GI/: No vomiting or BM this AM. Mcintosh draining bloody, cranberry colored urine to gravity. Pt reported nausea this afternoon. Zofran 4mg IV given, pt reports relief from nausea. No BM this shift. Neuro: A&Ox3, Pt awakes to verbal stimulus and is able to answer basic questions, but drifts off immediately after mumbling answer. Pt opening eyes as well as answering questions this afternoon. Pt had fever all shift, but has diminished from 37.8 to 37.3.
--- NOTE | 2016-03-12 17:56 | NUR ---
Wound Care Wound evaluation order received, pt seen at bedside. Pt well known to wound center for care of chronic venous leg ulcers treated with multilayer compression wraps. Wraps are removed today, pt presents with obvious decreased edema as noted by skin wrinkling. There is no erythema suggestive of cellulitis, her legs look as good as they have in months. Since she is currently bed bound and therefore not likely to swell i will wrap herv in a protective wrap after moisturizing her legs. She has an appt at the wound center on 03/15/16 if she is not still hospitalized. Will recheck on this patient if she is in house on Tuesday. Current dressings can stay in place.
--- NOTE | 2016-03-12 22:15 | NUR ---
Transfer Patient transferred to room 3024 from 2007 at 2130. Patient drowsy, but seems to be alert and oriented. Oriented to new room and staff. IV fluids infusing, telemetry in place. Bed alarm on for safety and call light is within reach. Intentional rounding to be done overnight.
[2016-03-13] VITALS (9 sets, daily range): BP systolic 154–183; BP diastolic 51–78; PULSE 83–113; RESP 20–22; O2SAT 95–96
[2016-03-13] MEDS: Acetaminophen IV 1,000 MG in IV Premix 1 EACH IV PRN ×4 (00:46→23:36)
[2016-03-13] MEDS: 0.9% Sodium Chloride 1,000 ML IV SCH ×4 (00:52→23:20)
--- NOTE | 2016-03-13 01:08 | NUR ---
Anxiety/Insomnia/BP Patient reports feeling anxious and can't sleep. Multiple requests for pain medication (administered IV Tylenol), anxiety medication or "something to help me sleep". Patient is alert and oriented. MD paged, no new order received. Patient's BP has been 170/70's, has current order for 5mg IV Hydralizine Q6 hours. MD updated on BP's, no new orders. Will continue to monitor.
[2016-03-13] MEDS: hydrALAZINE 20 mg/mL Inj IV SCH ×4 (02:55→20:06)
[2016-03-13] MEDS: Ondansetron 2 mg/mL 2 mL Inj IVPUSH PRN (03:28)
--- NOTE | 2016-03-13 05:11 | NUR ---
Patient concerns 1.Patient reports being frustrated that she is not allowed to eat and reported having a dry mouth. SENIOR PROJECT MANAGER ENGINEERING assisted patient with moistened mouth swabs around 2300, patient immediately began coughing. Attempted again around 0430, and patient did much better. Patient is currently NPO and does not have a swallow evaluation ordered- will pass on to day RN to ask MD about this. 2. Patient also reported several times that she is feeling anxious and can't sleep. MD did not give any new orders. Explained to patient rationale for holding PO meds, and that she was very somnolent and drowsy the previous night. Will pass on to day RN to ask MD about this also. 3. Patient reports 6/10 back and shoulder pain. IV Tylenol mildly effective. Patient showed her Fentanyl patch on her abdomen, stated it "...needs to be replaced. It's been four days." Patient is alert to date, place, and self. Patient would not allow this RN to take off, and there is no order to replace. Will pass on to day RN.
--- NOTE | 2016-03-13 05:17 | NUR ---
Mcintosh drainage Patient had 2400 dark pink urine output on NOC shift per Mcintosh catheter. Patient denies abdominal discomfort, but reports generalized "not feeling well". Vitals have been stable, but BP is elevated at 180/70's, HR 90's. Close monitoring in place.
[2016-03-13] MEDS: Pantoprazole 4 mg/mL 10 mL Inj IVPUSH SCH (07:32)
[2016-03-13 09:09] LABS: BASOPHILS % (AUTO) 0.1 % (0-3); EOSINOPHILS % (AUTO) 0 % (0-5); MONOCYTES % (AUTO) 7.2 % (4-12); Mean Corpuscular Hemoglobin 27.4 pg (27.0-35.0); Mean Corpuscular Volume 83.1 fL (81-100); NEUTROPHILS % (AUTO) 85.3 % (40-74); Platelet Count 455 bil/L (150-400)
[2016-03-13 09:30] LABS: Magnesium 1.5 mg/dL (1.6-2.6); Phosphorus 2.9 mg/dL (2.5-4.9)
[2016-03-13 10:18] LABS: APPEARANCE,URINE CLOUDY (CLEAR,HAZY); COLOR,URINE RED (YELLOW)
[2016-03-13 10:19] LABS: OCCULT BLOOD,URINE LARGE (NEGATIVE); UROBILINOGEN,URINE NORMAL (NORMAL)
[2016-03-13] MEDS: Verapamil SR 240 mg ER12 Tablet PO SCH (11:46)
[2016-03-13] MEDS: LORazepam 0.5 mg Tablet PO PRN ×2 (11:46→20:05)
--- NOTE | 2016-03-13 13:17 | NUR ---
Stop Heparin Patient had Heparin drip running at 1100 units/hour. Patient PTT was drawn and came back critical at 187.2. Heparin was stopped per protocol and was informed. Lab came to draw PTT and had difficulty drawing lab. Addendum: 03/13/16 at 1319 by JOANNE TUCKER RN DISREGARD NOTE. WRONG PATIENT
--- NOTE | 2016-03-13 13:24 | NUR ---
Late morning medications Patient was NPO this morning. Patient PO medications were held. Soon after medications were held there was an order for clear liquid diet. Patient was then administered morning medications.
--- NOTE | 2016-03-13 14:21 | NUR ---
Inpatient status effective 03/12/16. KOBE signed.
--- NOTE | 2016-03-13 15:09 | NUR ---
Evaluation completed. Rec: Thin/Soft diet when approved by MD. Patient currently on Clear Liquids. No straws rec'd. HUMAN RESOURCES OFFICE MANAGER to follow Please go to "Notes" then click on "Assessments and Notes" (bottom left corner of screen). Then select appropriate discipline tab on top of screen.
--- NOTE | 2016-03-13 16:10 | NUR ---
NUTRITION ASSESSMENT: ASSESS:85 YO female admitted with anxiety, agitation, restless leg syndrome. She continues to have leukocytosis, but lactic acid is normal. Per surgery, plain films show a nonspecific gas pattern. Overnight a Mcintosh catheter was placed with a large volume of blood-tinged fluid coming out. Initially it was felt that she was having profuse watery diarrhea. Then, it was felt that perhaps this is vaginal output. The Mcintosh placement would seem to suggest this is actually urinary incontinence. Surgery does not think that she is a surgical candidate. Meanwhile, her diet remains NPO / clear liquid x 2 D, despite a swallow evaluation that recommends a regular diet, with no dysphagia issues. Code status: DNR / DNI. 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 DIET:NPO / clear liquids x 2 D. LABS: Reviewed. Na 131, AChloride 94, Cr 1.1, Glu 112, Mg 1.5, Alb 3.9. MEDICATIONS: Reviewed. Haldol, Ativan, Requip. NUTRITION FOCUSED PHYSICAL ASSESSMENT: GI symptoms / stool: BM x 1 today.Jadon: 15. Skin Integrity: Chronic venous leg ulcers treated with multilayer compression wraps. Cold Reduction Roller noting they look better than they have in months. ANTHROPOMETRICS: Current Wt: 51.1 kgBMI: 21.0 kg/m2.Admit weight: 52.7 kg IBW: 47.7 kg (107.1% IBW) ESTIMATED NEEDS: Calories: 1278 - 1533 kcal (25 - 30 kcal / kg BW) Protein: 51 - 61 g protein (1.0 - 1.2 g / kg BW) NUTRITION DIAGNOSIS: 1)Inadequate oral intake related to potentially altered GI function, as evidenced by NPO / clear liquid x 3 D status. 2)Chewing / swallowing difficulties related to chronic dysphagia due to Ennis's esophagus, not evidenced by current swallow evaluation. INTERVENTION: 1) Recommend diet advance in timely manner. MONITOR/EVALUATE: Diet advance / tolerance, PO intake, labs, GI/nutrition status. Follow up per moderate nutrition risk guidelines.
--- NOTE | 2016-03-13 16:43 | PCM.PNMED ---
Subjective Date of Service Mar 13, 2016 Subjective Patient was very lucid and oriented 3 times, recognize family, back to baseline mental status Patient was quite anxious this morning, requested for Ativan Denied difficulty breathing, n/v, abdominal pain Exam Vital Signs Vital Sign - Last Date Time Temp Pulse Resp B/P Pulse Ox O2 Delivery O2 Flow Rate FiO2 03/13/16 15:04 37.1 87 20 154/51 95 Room Air Intake and Output 03/12/16 03/12/16 03/13/16 Cumulative From/Thru 15:00 23:00 07:00 03/11/16 08:03 - 03/13/16 06:59 Intake Total 1868 ml 871 ml 3965 ml Output Total 1850 ml 2400 ml 6275 ml Balance 18 ml -1529 ml -2310 ml Intake Oral 0 ml 0 ml 0 ml IV Total 1868 ml 871 ml 3965 ml Output Urine Total 1850 ml 2400 ml 6275 ml # Voids 16 # Bowel Movements 0 1 1 Exam NAD, comfortably laying down on the bed no JVD, MMM, no LAD RRR, nl s1, s2 no mrg CTAB, no w,c S,ND,NT,normoactive BS+ warm, no edema, pulses 2/2 IVs and Medications Medications Reviewed: Medications were reviewed in detail Lab and Diagnostics Result Diagram: 03/13/1684403/13/16 0845 Assessment & Plan acute, active, #Fever, POA. source unclear, possible intraabdominal process given structural abdominal dz, She was given one-time doses of levofloxacin and metronidazole then stopped, again febrile 37.9 overnight. repeat UA negative. -infectious w/u so far ngtd: viral PCR, BCX, UCX, -will likely resume levaquin/metronidazole for intra abdominal process, if clinically changes. consider abdominal CT as well #Hypertension. uncontrolled 170-180s off on home bp meds while npo, asymptomatic -resume diltiazem ER 240mg today, add losartan tomorrow, -hydralazine IV prn #worsening RLS symptoms, POA. Although this was the chief complaint, increased dose of Ropinirole was too sedative, pt denied symptoms currently -will continue Ropinirole for now #Hematuria, inserted jean-baptiste for possible urinary retention, d/c jean-baptiste today, repeat UA showed hematuria, will try bladder scan with straight cath every 6 hours, -If patient develops overt hematuria with unstable h/h, then consider Urology inpt consult, otherwise follow up outpatient. #congenital gut malrotation, hx of SBO, POA, scheduled for elective surgery -Surgery is actively following up, given benign exam, lactate, normal abdominal film, no Ix for urgent surgery, likely needs to reschedule when d/c -monitor abdominal sx, serial exam. chronic, stable # Chronic kidney disease stage III. Stable # Hypothyroidism. POA. Continue oral Synthroid # Obstructive sleep apnea. POA. Monitor for now # Chronic lower extremity lymphedema. POA. Wound consult to evaluate both legs and takedown dressings to rule out evidence of skin infection or ulcers. # MRSA history. #Acute episode of anxiety, agitation and restless legs. POA. This required multiple medications in the ED. patient was sedated due to medicine, resolved today dispo: Likely 2-3 more days, needs PT eval diet: Start clears today, advance as tolerated dvt ppx:SCD DO NOT RESUSCITATE DO NOT INTUBATE VTE Mechanical Devices: Intermittant Pneumatic CD Resuscitation Status: DNR/DNI:Do Not Resuscitate/Intubate Time spent 35 minutes Melony Knox MD Mar 13, 2016 16:43
--- NOTE | 2016-03-13 18:38 | NUR ---
Mcintosh Catheter Patient had orders to DC Mcintosh catheter. Catheter was removed. Patient was reassessed 4 hours later and was comfortable, but no urge to void. Patient was reassessed at 6 hours and could not void and bladder scan showed >999mL. MD notified and order for Mcintosh catheter to be placed. 1000mL of dark red, thick urine drained into Mcintosh.
--- NOTE | 2016-03-13 21:56 | DRSVH ---
PROCEDURE: CT ABDOMEN AND PELVIS WITHOUT CONTRAST ([id number]) INDICATIONS: fever urinary retention gut marotation TECHNIQUE: After the administration of oral contrast, 5 mm thick sections acquired from the diaphragms to the sy mphysis. 5 mm coronal and sagittal reformats were performed. For radiation dose reduction, the foll owing was used: automated exposure control, adjustment of mA and/or kV according to patient size. COMPARISON: [facility], CT, CT ABD PELVIS WO CON, 01/19/2016, 22:42. FINDINGS: Image quality: Excellent. ABDOMEN: Lung bases: Mild bilateral pleural effusions, left greater than right. Minimal appearance of superimp osed consolidation on the left. Solid organs: Liver and spleen are normal in size. Gallbladder has been removed. The lungs are dict ation. Pancreas is normal in size. No adrenal nodules. Both kidneys are atrophic without obstructi on. Peritoneum and bowel: Bowel loops demonstrate normal wall thickness and caliber. No free fluid or a ir. Colon diverticula are present without associated inflammatory change. Nodes and vessels: No retroperitoneal or mesenteric adenopathy by size criteria. Aorta and inferior vena cava are normal in size. Miscellaneous: No ventral hernias. PELVIS: Genitourinary: Visualized portions of the bladder grossly unremarkable. However, portions of the lowe r pelvis are suboptimally visualized secondary to metallic streak artifact from left hip arthroplasty . There is several foci of air identified within the bladder. Miscellaneous: No inguinal hernias or adenopathy. Bones: No suspicious bony lesions. No vertebral body compression fractures. IMPRESSION: 1. Mild to moderate bilateral pleural effusions. Small area of consolidation is noted on the left pos sibly atelectasis or developing airspace disease such as pneumonia. 2. Diverticulosis. 3. No obstruction. 4. The bladder is distended with several foci of air. Air can be indicative infection or inflammation , including cystitis. Dictated by: Teena Arora M.D. on 03/13/2016 at 21:54 Approved by: Teena Arora M.D. on 03/13/2016 at 21:54
[2016-03-14] VITALS (10 sets, daily range): BP systolic 129–177; BP diastolic 50–84; PULSE 70–92; RESP 16–22; O2SAT 94–99
[2016-03-14] MEDS: hydrALAZINE 20 mg/mL Inj IV SCH ×4 (03:35→21:26)
--- NOTE | 2016-03-14 05:27 | NUR ---
Mcintosh drainage Patient's catheter drained 800 ml urine overnight. Thick, dark red urine with a few small clots. Patient denies urinary discomfort.
[2016-03-14] MEDS: 0.9% Sodium Chloride 1,000 ML IV SCH ×3 (06:24→20:33)
[2016-03-14 07:18] LABS: BASOPHILS % (AUTO) 0.2 % (0-3); EOSINOPHILS % (AUTO) 0.1 % (0-5); MONOCYTES % (AUTO) 11.6 % (4-12); Mean Corpuscular Hemoglobin 27.8 pg (27.0-35.0); Mean Corpuscular Volume 82.4 fL (81-100); NEUTROPHILS % (AUTO) 79.3 % (40-74); Platelet Count 425 bil/L (150-400)
[2016-03-14 07:38] LABS: Magnesium 1.6 mg/dL (1.6-2.6); Phosphorus 2.4 mg/dL (2.5-4.9)
[2016-03-14] MEDS: Pantoprazole 4 mg/mL 10 mL Inj IVPUSH SCH (08:12)
[2016-03-14] MEDS: Verapamil SR 240 mg ER12 Tablet PO SCH (08:12)
[2016-03-14] MEDS: LORazepam 0.5 mg Tablet PO PRN (08:12)
[2016-03-14] MEDS ORDERED: Magnesium Sulf 2 Gm/50mL Water 2 GM in IV Premix 1 EACH IV ONE (08:55)
[2016-03-14] MEDS ORDERED: Potassium Chloride 20 mEq/15 mL 15mL Oral Soln PO ONE (08:55)
--- NOTE | 2016-03-14 11:41 | PCM.PNMED ---
Subjective Date of Service Mar 14, 2016 Subjective Patient retained urine significantly yesterday after Jean-Baptiste was stopped Therefore, Jean-Baptiste was reinserted, noted gross hematuria with small clots, continued to drain CT abdomen and pelvis showed small foci of air in the bladder, atrophic bilateral kidneys, no acute findings on bowels Urology consulted, possible plan for urology intervention tomorrow pt denied her legs bothering her for sleeping Exam Vital Signs Vital Sign - Last Date Time Temp Pulse Resp B/P Pulse Ox O2 Delivery O2 Flow Rate FiO2 03/14/16 10:05 83 03/14/16 09:31 36.5 22 166/68 95 Room Air Intake and Output 03/13/16 03/13/16 03/14/16 Cumulative From/Thru 15:00 23:00 07:00 03/11/16 08:03 - 03/14/16 05:11 Intake Total 2442 ml 1665 ml 8072 ml Output Total 1700 ml 7975 ml Balance 742 ml 1665 ml 97 ml Intake Oral 400 ml 400 ml IV Total 2042 ml 1665 ml 7672 ml Output Urine Total 1700 ml 7975 ml # Voids 16 # Bowel Movements 1 2 Exam NAD, comfortably laying down on the bed no JVD, MMM, no LAD RRR, nl s1, s2 no mrg CTAB, no w,c S,ND,NT,normoactive BS+ warm, no edema, pulses 2/2 Jean-Baptiste catheter in place, noted small amount of gross hematuria. no clots IVs and Medications Medications Reviewed: Medications were reviewed in detail Lab and Diagnostics Result Diagram: 03/14/16 0623 03/14/16 0623 Assessment & Plan acute, active, #Fever, POA. source unclear, possible source-urologic infection given CT findings, She was given one-time doses of levofloxacin and metronidazole then stopped, again febrile 37.9 03/13. repeat UA negative. -infectious w/u so far ngtd: viral PCR, BCX, UCX, -Low threshold to cover with abx for possible ?necrotizing cystitis if clinically changes #Hypertension. uncontrolled 170-180s off on home bp meds while npo, asymptomatic -resume diltiazem ER 240mg today, add losartan today -hydralazine IV prn #worsening RLS symptoms, POA. Although this was the chief complaint, increased dose of Ropinirole was too sedative, pt denied symptoms currently -will continue Ropinirole for now #Gross hematuria, pt was initially inserted jean-baptiset for possible urinary retention , d/hailey jean-baptiste to prevent UTI, Repeat UA showed hematuria, retained urine > 1liters with small clots and gross hematuria, had to reinserted jean-baptiste cath. working ddx; hemorrhagic cystitis vs malignancy, no obvious insult noted. -Greatly appreciate urology recommendation, maintain Jean-Baptiste catheter for now #congenital gut malrotation, hx of SBO, POA, scheduled for elective surgery, CT abd showed benign findings. -seen by Surgery given benign exam, lactate, normal abdominal film, no Ix for urgent surgery, likely needs to reschedule when d/c -monitor abdominal sx, serial exam. chronic, stable # Chronic kidney disease stage III. Stable # Hypothyroidism. POA. Continue oral Synthroid # Obstructive sleep apnea. POA. Monitor for now # Chronic lower extremity lymphedema. POA, stopped aldactone, this was new regimen started Dec- last yr. no good benefit given acute illness at the moment. # MRSA history. #Acute episode of anxiety, agitation and restless legs. POA. This required multiple medications in the ED. patient was sedated due to medicine, resolved today dispo: Likely 1-2 more days, needs PT eval diet: general diet dvt ppx:SCD DO NOT RESUSCITATE DO NOT INTUBATE VTE Mechanical Devices: Intermittant Pneumatic CD Resuscitation Status: DNR/DNI:Do Not Resuscitate/Intubate Time spent 35min Melony Knox MD Mar 14, 2016 11:41
--- NOTE | 2016-03-14 17:17 | NUR ---
Social Work: Initial Assessment Data: Pt is an 85 y/o female admitted for AMS. Pt's PCP is Dr Voss, pt's insurance is Medicare [employer]. CIVIL GEOTECHNICAL ENGINEER met with pt at bedside, role explained. Pt states that she lives at [facility] where she uses a walker regularly. Pt states that she drives, has no history of SNF but has used [facility] in the past. She states that she has no LTC or VA benefits and is not a caregiver. CIVIL GEOTECHNICAL ENGINEER will follow for possible HH need. Assessment: Pt who is independent at baseline. Plan: Pt will likely d/c home via POV when medically stable. CIVIL GEOTECHNICAL ENGINEER will follow for possible HH need. ALICIA Artis Addendum: 03/14/16 at 1722 by KAREN JUSTICE SS Amended: Links added.
[2016-03-15] VITALS (7 sets, daily range): BP systolic 135–174; BP diastolic 53–66; PULSE 6–78; RESP 20–22; O2SAT 96–98
[2016-03-15] MEDS: hydrALAZINE 20 mg/mL Inj IV SCH ×4 (01:58→21:42)
[2016-03-15] MEDS: 0.9% Sodium Chloride 1,000 ML IV SCH ×3 (01:58→16:07)
--- NOTE | 2016-03-15 05:53 | NUR ---
Noc/Jean-Baptiste Pt jean-baptiste drained 390mL of dark tea colored urine with sediments. Pt denies chest pain, sob, n/v and abd dsicomfort. Has been pleasant and cooperative with care. Has been put on NPO after mn. Will continue to monitor.
[2016-03-15 06:18] LABS: BASOPHILS % (AUTO) 0.1 % (0-3); EOSINOPHILS % (AUTO) 1.3 % (0-5); MONOCYTES % (AUTO) 8.2 % (4-12); Mean Corpuscular Hemoglobin 27.4 pg (27.0-35.0); Mean Corpuscular Volume 83.5 fL (81-100); NEUTROPHILS % (AUTO) 82.8 % (40-74); Platelet Count 439 bil/L (150-400)
[2016-03-15 06:24] LABS: Phosphorus 2.5 mg/dL (2.5-4.9)
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
[2016-03-15] MEDS: Pantoprazole 4 mg/mL 10 mL Inj IVPUSH SCH (08:14)
[2016-03-15] MEDS: LORazepam 0.5 mg Tablet PO PRN (08:15)
[2016-03-15] MEDS: Verapamil SR 240 mg ER12 Tablet PO SCH (08:16)
--- NOTE | 2016-03-15 14:11 | NUR ---
Evaluation completed. Please go to "Notes" then click on "Assessments and Notes" (bottom left corner of screen). Then select appropriate discipline tab on top of screen.
--- NOTE | 2016-03-15 14:39 | NUR ---
Wound Care [facility] Patient seen for follow up wound care to bilateral legs. Dressings removed. Legs continue with very little edema. 0 to 1+ to LEs, 2+ to bilateral feet. Applied Vaseline to bilateral legs. Covered with kerlix, secured with AINSLEY wrap with very little compression due to patient reports she is not sitting, standing, or ambulating at this time. Patient has catheter. Will follow up as needed.
--- NOTE | 2016-03-15 15:18 | NUR ---
trouble catching breath pt states that it feels like she isn't getting enough air. pulse ox RA 97% resp. 20 this RN put on a nasal canula with NO oxygen running due to patient anxiety
--- NOTE | 2016-03-15 16:32 | NUR ---
Social Work-readiness for discharge: Data:EMR reviewed. Pt is on day 4 of hospitalization for AMS per H&P. Pt is getting closer to being closer to discharge. PT worked with pt and are recommending SNF, pt ambulating 5 ft. SW followed up with pt, son Connor and daughter in law Peace [phone]. SW explained SNF recommendation, SNF choice list provided. Pt and family in agreement with referral to [facility]. SW faxed [employer] and provided access. Paperwork in the chart. SW will continue to follow. Assessment:pt who would benefit from SNF. Plan:[facility] has been faxed. Paperwork in the chart. SW will continue to follow. ALICIA Morel
--- NOTE | 2016-03-15 16:34 | NUR ---
SNF choice list provided. ALICIA Morel
--- NOTE | 2016-03-15 16:34 | NUR ---
[facility] can accept when medically stable. Kajal Leiva,PUTTY PATCHER
--- NOTE | 2016-03-15 17:16 | PCM.PNMED ---
Subjective Date of Service Mar 15, 2016 Subjective Urine was cleared with Jean-Baptiste in place No urologic intervention planned per urology service pt felt anxious, oterwise denied any pain, breathing well Exam Vital Signs Vital Sign - Last Date Time Temp Pulse Resp B/P Pulse Ox O2 Delivery O2 Flow Rate FiO2 03/15/16 14:03 36.3 65 20 135/56 96 Room Air Intake and Output 03/14/16 03/14/16 03/15/16 Cumulative From/Thru 15:00 23:00 07:00 03/11/16 08:03 - 03/15/16 06:33 Intake Total 440 ml 859 ml 1933 ml 06256 ml Output Total 800 ml 1025 ml 390 ml 84258 ml Balance -360 ml -166 ml 1543 ml 1114 ml Intake Oral 440 ml 859 ml 250 ml 1949 ml IV Total 1683 ml 9355 ml Output Urine Total 800 ml 1025 ml 390 ml 45348 ml # Voids 16 # Bowel Movements 1 2 5 Exam NAD, comfortably laying down on the bed no JVD, MMM, no LAD RRR, nl s1, s2 no mrg CTAB, no w,c S,ND,NT,normoactive BS+ warm, no edema, pulses 2/2 Jean-Baptiste catheter in place, clear urine, IVs and Medications Medications Reviewed: Medications were reviewed in detail Lab and Diagnostics Result Diagram: 03/15/16 0547 03/15/16 0547 Assessment & Plan acute, active, #Fever, POA. source unclear, possible source-urologic infection given CT findings, She was given one-time doses of levofloxacin and metronidazole then stopped, again febrile 37.9 03/13. repeat UA negative. -infectious w/u so far ngtd: viral PCR, BCX, UCX, -Low threshold to cover with abx for possible ?necrotizing cystitis if clinically changes #Hypertension. uncontrolled 170-180s off on home bp meds while npo, asymptomatic -resume diltiazem ER 240mg today, add losartan today -hydralazine IV prn #worsening RLS symptoms, POA. Although this was the chief complaint, increased dose of Ropinirole was too sedative, pt denied symptoms currently -continue Ropinirole #Gross hematuria, pt was initially inserted jean-baptiste for possible urinary retention , d/hailey jean-baptiste to prevent UTI, Repeat UA showed hematuria, retained urine > 1liters with small clots and gross hematuria, had to reinserted jean-baptiste cath. working ddx; hemorrhagic cystitis vs malignancy, no obvious insult noted. -OP follow up with Urology for CT/cystoscopy recommended -urine cleared today, renal function further improved, -keep jean-baptiste for now, likely to d/c tomorrow #congenital gut malrotation, hx of SBO, POA, scheduled for elective surgery, CT abd showed benign findings. -seen by Surgery given benign exam, lactate, normal abdominal film, no Ix for urgent surgery, likely needs to reschedule when d/c -monitor abdominal sx, serial exam. chronic, stable # Chronic kidney disease stage III. Stable # Hypothyroidism. POA. Continue oral Synthroid # Obstructive sleep apnea. POA. Monitor for now # Chronic lower extremity lymphedema. POA, stopped aldactone, this was new regimen started Dec- last yr. no good benefit given acute illness at the moment. # MRSA history. #Acute episode of anxiety, agitation and restless legs. POA. This required multiple medications in the ED. patient was sedated due to medicine, resolved today dispo: SNF per PT, likely within 1-2days diet: general diet dvt ppx:SCD DO NOT RESUSCITATE DO NOT INTUBATE VTE Mechanical Devices: Intermittant Pneumatic CD Resuscitation Status: DNR/DNI:Do Not Resuscitate/Intubate Time spent 35min Melony Knox MD Mar 15, 2016 17:16
[2016-03-16] VITALS (7 sets, daily range): BP systolic 126–173; BP diastolic 55–71; PULSE 66–90; RESP 18–22; O2SAT 96–98
[2016-03-16] MEDS: LORazepam 0.5 mg Tablet PO PRN ×2 (00:07→20:38)
[2016-03-16] MEDS: 0.9% Sodium Chloride 1,000 ML IV SCH ×2 (00:07→05:27)
[2016-03-16] MEDS: hydrALAZINE 20 mg/mL Inj IV SCH ×2 (02:03→09:27)
--- NOTE | 2016-03-16 05:37 | NUR ---
Uneventful Pt denies chest pain, sob, n/v or abd discomfort. Has jean-baptiste draining talon urine. HS medication and IVF administered as scheduled. Will continue to monitor.
[2016-03-16 07:11] LABS: BASOPHILS % (AUTO) 0.4 % (0-3); EOSINOPHILS % (AUTO) 5.3 % (0-5); MONOCYTES % (AUTO) 8.1 % (4-12); Mean Corpuscular Hemoglobin 27.8 pg (27.0-35.0); Mean Corpuscular Volume 83.6 fL (81-100); NEUTROPHILS % (AUTO) 76.5 % (40-74); Platelet Count 360 bil/L (150-400)
[2016-03-16 07:30] LABS: Magnesium 1.8 mg/dL (1.6-2.6); Phosphorus 2.9 mg/dL (2.5-4.9)
[2016-03-16] MEDS: Pantoprazole 4 mg/mL 10 mL Inj IVPUSH SCH (09:26)
[2016-03-16] MEDS: Verapamil SR 240 mg ER12 Tablet PO SCH (09:28)
[2016-03-16] MEDS ORDERED: hydrALAZINE 20 mg/mL Inj IV PRN (10:20)
--- NOTE | 2016-03-16 13:20 | DRSVH ---
PROCEDURE: X-RAY CHEST ONE VIEW, PORTABLE ([id number]) INDICATIONS: wheezing TECHNIQUE: One view of the chest was acquired. COMPARISON: [facility], CR, XR CHEST 1VW (PORTABLE), 03/11/2016, 11:16. FINDINGS: Surgical changes and devices: Left shoulder arthroplasty. Multiple epigastric and right upper quadra nt surgical clips. Lungs and pleura: No pleural effusions or pneumothorax. Interstitium is prominent the mild edema del rosario spected. Airspace opacity noted left lung base where there is a small left pleural effusion.. Mediastinum: Mediastinal contours appear normal. Heart size is normal. Bones and chest wall: No suspicious bony lesions. Overlying soft tissues appear unremarkable. IMPRESSION: 1. Mild edema and/or pneumonia involving the left lung base. Dictated by: Donavan Nova [facility] Interpreted: Tran Perdue MD on 03/16/2016 at 13:19 Transcribed by: JERROD on 03/16/2016 at 13:20 Approved by: Tran Perdue MD, PhD on 03/16/2016 at 17:12
--- NOTE | 2016-03-16 15:20 | PCM.PNMED ---
Subjective Date of Service Mar 16, 2016 Subjective Patient complaint DIFFICULTY breathing this morning, fluid was stopped Denied cough or phlegm but noted mildly tachypneic Repeat chest x-ray showed possible developing pulmonary edema, Lasix was given Jean-Baptiste was DC'd Exam Vital Signs Vital Sign - Last Date Time Temp Pulse Resp B/P Pulse Ox O2 Delivery O2 Flow Rate FiO2 03/16/16 13:23 36.4 70 22 126/57 97 Room Air Intake and Output 03/15/16 03/15/16 03/16/16 Cumulative From/Thru 15:00 23:00 07:00 03/11/16 08:03 - 03/16/16 06:58 Intake Total 2013 ml 1353 ml 75176 ml Output Total 350 ml 32576 ml Balance 1663 ml 1353 ml 4130 ml Intake Oral 400 ml 2349 ml IV Total 1613 ml 1353 ml 02034 ml Output Urine Total 350 ml 90424 ml # Voids 16 # Bowel Movements 1 6 Exam NAD, comfortably laying down on the bed no JVD, MMM, no LAD RRR, nl s1, s2 no mrg Diffuse mild wheezing, no crackles S,ND,NT,normoactive BS+ warm, no edema, pulses 2/2 Jean-Baptiste catheter in place, clear urine, IVs and Medications Medications Reviewed: Medications were reviewed in detail Lab and Diagnostics Result Diagram: 03/16/16 0650 03/16/16 0650 Assessment & Plan acute, active, #Acute onset dyspnea secondary to fluid overload from IVF given, in the setting of HFpEF. CXR showed PVC, elevated BNP on labs, developed . -lasix 40mg po given, will monitor response, of note, aldactone was stopped earlier given negative balance, will likely continue standing diuretics upon d/c #Gross hematuria, pt was initially inserted jean-baptiste for possible urinary retention , d/hailey jean-baptiste to prevent UTI, Repeat UA showed hematuria, retained urine > 1liters with small clots and gross hematuria, had to reinserted jean-baptiste cath. working ddx; hemorrhagic cystitis vs malignancy, no obvious insult noted. -OP follow up with Urology for CT/cystoscopy recommended -urine cleared, renal function further improved, -d/c jean-baptiste, monitor with serial bladder scan, in/out cath if needed #hyponatremia, likely due to CHF, Na131 today, will monitor with diuretics chronic, stable #congenital gut malrotation, hx of SBO, POA, scheduled for elective surgery, CT abd showed benign findings. -seen by Surgery given benign exam, lactate, normal abdominal film, no Ix for urgent surgery, likely needs to reschedule when d/c -monitor abdominal sx, serial exam. #worsening RLS symptoms, POA. Although this was the chief complaint, increased dose of Ropinirole was too sedative, pt denied symptoms currently -continue Ropinirole #Fever, POA. source unclear, possible source-urologic infection given CT findings, She was given one-time doses of levofloxacin and metronidazole then stopped, again febrile 37.9 03/13. repeat UA negative. -it's still unclear, afebilre>past 3days, infectious w/u so far ngtd: viral PCR , BCX, UCX, -Low threshold to cover with abx for possible ?necrotizing cystitis if clinically changes #Hypertension. Better controlled, continue home diltiazem ER 240mg today, add losartan, hydralazine IV prn # Chronic kidney disease stage III. Stable # Hypothyroidism. POA. Continue oral Synthroid # Obstructive sleep apnea. POA. Monitor for now # Chronic lower extremity lymphedema. POA, stopped aldactone, this was new regimen started Dec- last yr. no good benefit given acute illness at the moment. # MRSA history. #Acute episode of anxiety, agitation and restless legs. POA. This required multiple medications in the ED. patient was sedated due to medicine, resolved today dispo: SNF per PT, likely tomorrow diet: general diet dvt ppx:SCD DO NOT RESUSCITATE DO NOT INTUBATE VTE Mechanical Devices: Intermittant Pneumatic CD Resuscitation Status: DNR/DNI:Do Not Resuscitate/Intubate Time spent 35min Melony Knox MD Mar 16, 2016 15:20
--- NOTE | 2016-03-16 19:12 | NUR ---
Jean-Baptiste Jean-Baptiste removed @ 1050 today. Patient unable to urinate. Has no urge. Bladder scan indicated >999mls. Hospitalist contacted. Order given to reinsert jean-baptiste for retention. Jean-Baptiste reinserted, over 1600 mls out.
[2016-03-17] VITALS (7 sets, daily range): BP systolic 114–146; BP diastolic 41–75; PULSE 56–74; RESP 18–20; O2SAT 94–98
--- NOTE | 2016-03-17 05:21 | NUR ---
Pain/Urine Output Pt complains of stomach pain on her right lower abdominal area 10/31. Administered oxycodone 10mg, pt states pain has been relief. Pt denies sob, n/v. Pt's output has reach 4.9L of clear talon urine overnight.
[2016-03-17 07:00] LABS: BASOPHILS % (AUTO) 0.3 % (0-3); EOSINOPHILS % (AUTO) 7.5 % (0-5); MONOCYTES % (AUTO) 7.6 % (4-12); NEUTROPHILS % (AUTO) 70.2 % (40-74); Platelet Count 370 bil/L (150-400)
[2016-03-17 07:24] LABS: Magnesium 1.6 mg/dL (1.6-2.6); Phosphorus 3.7 mg/dL (2.5-4.9)
[2016-03-17] MEDS: Pantoprazole 20 mg ER24 Tablet PO SCH (08:13)
[2016-03-17] MEDS: Verapamil SR 240 mg ER12 Tablet PO SCH (09:20)
--- NOTE | 2016-03-17 11:02 | NUR ---
Social Work-readiness for discharge: data:EMR reviewed. Pt is on 6 of hospitalization for alerted mental status per H&P. Per MD, pt may be ready to discharge tomorrow. SW confirmed with [facility] that the are ready to accept pt when medically stable. SW followed up with pt at bedside and is agreeable to plan. Pt has questions about transport and SW explained that transportation would be determine on day of discharge, but currently pt could go via cabulance. Pt's family in agreement as well. Paperwork and PASRR in the chart. SW will continue to follow. Assessment:Pt who would benefit from SNF. Plan:Pt to discharge to [facility] when medically stable with Dr. Kiser to follow. Paperwork and PASRR in the chart. SW will continue to follow. ALICIA Morel
--- NOTE | 2016-03-17 11:39 | PCM.PNMED ---
Subjective Date of Service Mar 17, 2016 Subjective Patient again retained urine more than 1 L after Jean-Baptiste was DC'd, therefore Jean-Baptiste was reinserted Had negative balance -4.7 L with Lasix 40 mg by mouth twice a day yesterday Creatinine bumped from 0.93 to 1.17 pt feels good, not as much as anxious Denied any difficulty breathing or cough Exam Vital Signs Vital Sign - Last Date Time Temp Pulse Resp B/P Pulse Ox O2 Delivery O2 Flow Rate FiO2 03/17/16 09:24 36.6 69 18 125/55 98 Room Air Intake and Output 03/16/16 03/16/16 03/17/16 Cumulative From/Thru 15:00 23:00 07:00 03/11/16 08:03 - 03/17/16 06:27 Intake Total 350 ml 200 ml 89245 ml Output Total 1000 ml 4900 ml 85056 ml Balance -650 ml -4700 ml -1220 ml Intake Oral 350 ml 200 ml 2899 ml IV Total 46016 ml Output Urine Total 1000 ml 4900 ml 86076 ml # Voids 16 # Bowel Movements 0 0 6 Exam NAD, comfortably laying down on the bed no JVD, MMM, no LAD RRR, nl s1, s2 no mrg Diffuse mild wheezing, no crackles S,ND,NT,normoactive BS+ warm, no edema, pulses 2/2 Jean-Bapt[address] catheter in place, diluted clean watery IVs and Medications Medications Reviewed: Medications were reviewed in detail Lab and Diagnostics Result Diagram: 03/17/16 0603/17/16 0612 Assessment & Plan acute, active, #Gross hematuria, urinary retention, POA, pt was initially inserted jean-baptiste for possible urinary retention, d/hailey jean-baptiste to prevent UTI, Repeat UA showed hematuria, retained urine >1liters with small clots and gross hematuria, had to reinserted jean-baptiste cath. 03/16 d/hailey jean-baptiste but retained agin so jean-baptiste reinserted, gross hematuria completely cleared -OP follow up with Urology for CT/cystoscopy recommended -keep indwelling Jean-Baptiste at this point, try bladder training with intermittent clamping, d/c with jean-baptiste with Urology follow up #hyponatremia, likely due to CHF, [id number] today, stable #Mild LUDWIN, developed due to aggressive diuresis, hold diuretics today, trend creatinine chronic, stable #Acute onset dyspnea secondary to fluid overload from IVF given, in the setting of HFpEF. CXR showed PVC, elevated BNP on labs, developed 03/15-. s/p lasix 40mg po x2, had brisk urine output net -4.7liters, sx improved significantly. Of note, aldactone was stopped earlier given negative balance, will likely continue standing diuretics upon d/c #congenital gut malrotation, hx of SBO, POA, scheduled for elective surgery, CT abd showed benign findings. -seen by Surgery given benign exam, lactate, normal abdominal film, no Ix for urgent surgery, likely needs to reschedule when d/c -monitor abdominal sx, serial exam. #worsening RLS symptoms, POA. Although this was the chief complaint, increased dose of Ropinirole was too sedative, pt denied symptoms currently -continue Ropinirole #Fever, POA. source unclear, possible source-urologic infection given CT findings, She was given one-time doses of levofloxacin and metronidazole then stopped, again febrile 37.9 03/13. repeat UA negative. -it's still unclear, afebilre>past 3days, infectious w/u so far ngtd: viral PCR , BCX, UCX, -Low threshold to cover with abx for possible ?necrotizing cystitis if clinically changes #Hypertension. Better controlled, continue home diltiazem ER 240mg today, add losartan, hydralazine IV prn # Chronic kidney disease stage III. Stable # Hypothyroidism. POA. Continue oral Synthroid # Obstructive sleep apnea. POA. Monitor for now # Chronic lower extremity lymphedema. POA, stopped aldactone, this was new regimen started Dec- last yr. no good benefit given acute illness at the moment. # MRSA history. #Acute episode of anxiety, agitation and restless legs. POA. This required multiple medications in the ED. patient was sedated due to medicine, resolved today dispo: SNF per PT, tomorrow diet: general diet dvt ppx:SCD DO NOT RESUSCITATE DO NOT INTUBATE VTE Mechanical Devices: Intermittant Pneumatic CD Resuscitation Status: DNR/DNI:Do Not Resuscitate/Intubate Time spent 35 minutes Melony Knox MD Mar 17, 2016 11:32
[2016-03-17] MEDS: LORazepam 0.5 mg Tablet PO PRN (14:22)
--- NOTE | 2016-03-17 18:24 | NUR ---
Word Searching Patient having difficulty with speech and word searching for about 10 min this afternoon. Daughter came into the room. Vital signs normal. Patient was redirected and immediately began talking normally. Daughter pulled nurse from room and reported that patient will do this and "fake other things to get attention". Daughter stating that she feels patient is acting much more ill than she really is (so she won't have to go to a snif) and that she has done this before. Addendum: 03/17/16 at 1828 by SEJAL MOYA RN Patient up in chair for all meals today.
[2016-03-18 01:27] VITALS: BP 137/62; PULSE 63; RESP 18; O2SAT 98
[2016-03-18 05:07] VITALS: BP 144/63; PULSE 73; RESP 18; O2SAT 97
[2016-03-18 07:08] LABS: BASOPHILS % (AUTO) 0.4 % (0-3); EOSINOPHILS % (AUTO) 8.8 % (0-5); MONOCYTES % (AUTO) 8.5 % (4-12); Mean Corpuscular Hemoglobin 27.2 pg (27.0-35.0); Mean Corpuscular Volume 83.5 fL (81-100); NEUTROPHILS % (AUTO) 64.7 % (40-74); Platelet Count 306 bil/L (150-400)
[2016-03-18 07:46] LABS: Magnesium 1.4 mg/dL (1.6-2.6); Phosphorus 3.8 mg/dL (2.5-4.9)
[2016-03-18] MEDS: Verapamil SR 240 mg ER12 Tablet PO SCH (08:09)
[2016-03-18] MEDS: Pantoprazole 20 mg ER24 Tablet PO SCH (08:49)
[2016-03-18] MEDS ORDERED: Magnesium Sulf 2 Gm/50mL Water 2 GM in IV Premix 1 EACH IV ONE (09:10)
[2016-03-18] MEDS ORDERED: Potassium Chloride 20 mEq/15 mL 15mL Oral Soln PO ONE (09:10)
[2016-03-18] MEDS ORDERED: 0.9% Sodium Chloride 250 ML IV ONE (09:10)
[2016-03-18 10:07] VITALS: BP 135/56; PULSE 66; RESP 18; O2SAT 95
--- NOTE | 2016-03-18 11:51 | PCM.PNMED ---
Subjective Date of Service Mar 18, 2016 Subjective Patient is doing well Eating okay, but good appetite Exam Vital Signs Vital Sign - Last Date Time Temp Pulse Resp B/P Pulse Ox O2 Delivery O2 Flow Rate FiO2 03/18/16 10:07 37.1 66 18 135/56 95 Room Air Intake and Output 03/17/16 03/17/16 03/18/16 Cumulative From/Thru 15:00 23:00 07:00 03/11/16 08:03 - 03/18/16 06:27 Intake Total 800 ml 600 ml 99120 ml Output Total 1750 ml 1400 ml 08630 ml Balance -950 ml -800 ml -2970 ml Intake Oral 800 ml 600 ml 4299 ml IV Total 52449 ml Output Urine Total 1750 ml 1400 ml 45120 ml # Voids 16 # Bowel Movements 6 Exam NAD, comfortably laying down on the bed no JVD, MMM, no LAD RRR, nl s1, s2 no mrg CTAB, no w,c S,ND,NT,normoactive BS+ warm, no edema, pulses 2/2 IVs and Medications Medications Reviewed: Medications were reviewed in detail Lab and Diagnostics Result Diagram: 03/18/1662903/18/16 06 Assessment & Plan acute, active, #Gross hematuria, urinary retention, POA, pt was initially inserted jean-baptiste for possible urinary retention, d/hailey jean-baptiste to prevent UTI, Repeat UA showed hematuria, retained urine >1liters with small clots and gross hematuria, had to reinserted jean-baptiste cath. 03/16 d/hailey jean-baptiste but retained agin so jean-baptiste reinserted, gross hematuria completely cleared.there was initial concern of GIB, not hematuria, but h/h stable, no active GIB observed so excluded. -OP follow up with Urology for CT/cystoscopy recommended -keep indwelling Jean-Baptiste at this point, try bladder training with intermittent clamping, d/c with jean-baptiste with Urology follow up #hyponatremia, likely due to CHF, [id number] today, stable #Mild LUDWIN, developed 03/16- due to aggressive diuresis, held diuretics, mildly worsened. -will trend eGFR closely, fluid trial with 250cc bolus, encourage oral hydration. chronic, stable #Acute encephalopathy, POA, likely toxic metabolic, This required multiple medications in the ED. patient was sedated due to medicine, resolved today #Acute onset dyspnea secondary to fluid overload from IVF given, in the setting of HFpEF. CXR showed PVC, elevated BNP on labs, developed 03/15-. s/p lasix 40mg po x2, had brisk urine output net -4.7liters, sx improved significantly. Of note, aldactone was stopped earlier given negative balance, will likely continue standing diuretics upon d/c #congenital gut malrotation, hx of SBO, POA, scheduled for elective surgery, CT abd showed benign findings. -seen by Surgery given benign exam, lactate, normal abdominal film, no Ix for urgent surgery, likely needs to reschedule when d/c -monitor abdominal sx, serial exam. #worsening RLS symptoms, POA. Although this was the chief complaint, increased dose of Ropinirole was too sedative, pt denied symptoms currently -continue Ropinirole #Fever, POA. source unclear, possible source-urologic infection given CT findings, She was given one-time doses of levofloxacin and metronidazole then stopped, again febrile 37.9 03/13. repeat UA negative. -it's still unclear, afebilre>past 3days, infectious w/u so far ngtd: viral PCR , BCX, UCX, -Low threshold to cover with abx for possible ?necrotizing cystitis if clinically changes #Hypertension. Better controlled, continue home diltiazem ER 240mg, losartan, hydralazine IV prn # Chronic kidney disease stage III. Stable # Hypothyroidism. POA. Continue oral Synthroid # Obstructive sleep apnea. POA. Monitor for now # Chronic lower extremity lymphedema. POA, stopped aldactone, this was new regimen started Dec- last yr, will resume aldactone low dose upon d/c # MRSA history. #Acute episode of anxiety, agitation and restless legs. POA. continue ativan prn dispo: delayed given hyponatremia, LUDWIN, SNF per PT, tomorrow diet: general diet dvt ppx:SCD DO NOT RESUSCITATE DO NOT INTUBATE VTE Mechanical Devices: Intermittant Pneumatic CD Resuscitation Status: DNR/DNI:Do Not Resuscitate/Intubate Time spent 35 minutes Melony Knox MD Mar 18, 2016 11:51
--- NOTE | 2016-03-18 13:43 | NUR ---
NUTRITION FOLLOW-UP: ASSESS: 85 YO female admitted with altered mental status, gross hematuria, urinary retention. Pt diet has been advanced to soft with pt now eating 25-75% of meals yesterday. Gelatein supplements were added TID yesterday as pt had refused all meals on 03/16, but will change supplements to BID as pt is eating better. PMHx: Transient ischemic attack with right upper extremity weakness, improved significantly; hypertension; chronic kidney disease stage III, hypothyroidism; restless leg syndrome; obstructive sleep apnea; hyperlipidemia; chronic lower extremity lymphedema; gastroesophageal reflux disease; diverticulosis; osteoporosis; depression; chronic fatigue syndrome; vitamin D deficiency; UTI; pancreatitis; dysphagia with Ennis's esophagus; hiatal hernia; right wrist septic arthritis; post-herpatic neuralgia; trigeminal neuralgia; history of heavy alcohol use; history of mid-gut malrotation with prior small bowel obstruction; Left hip fracture; on chronic on Lovenox prophylactic therapy; heart murmur with leaky heart valve; anxiety; MRSA. DIET: Soft. PO 25-75% of meals. LABS: Reviewed. Na 133, K+ 3.4, Cr 1.19, Ca 7.7, Alb 2.6. MEDICATIONS: Reviewed. GI symptoms / stool: BM x 3 (03/15). Skin Integrity: Chronic venous leg ulcers treated with multilayer compression wraps. Outside Physical Damage Appraiser noting they look better than they have in months. ANTHROPOMETRICS: Current Wt: 55.2 kg Admit weight: 52.7 kg ESTIMATED NEEDS (CKD STAGE III): Calories: 4860-5256 kcal (25 - 35 kcal / kg BW) Protein: 55-65 g protein (1.0-1.2 g / kg BW) NUTRITION DIAGNOSIS: 1) Inadequate oral intake related to altered GI function, as evidenced by NPO / clear liquid x 3 D status-IMPROVED, DIET SOFT WITH PO INTAKE OF 25-75%. 2) Chewing / swallowing difficulties related to chronic dysphagia due to Ennis's esophagus, not evidenced by current swallow evaluation--RESOLVED. INTERVENTION: 1.) Change Gelatein plus to BID. MONITOR/EVALUATE: PO intake / tolerance, labs, GI/nutrition status. Follow up per moderate nutrition risk guidelines.
[2016-03-18 15:36] VITALS: BP 127/61; PULSE 65; RESP 20; O2SAT 97
--- NOTE | 2016-03-18 17:38 | NUR ---
Wound Care Pt seen for revaluation of her leg edema and ulceration, at this time her edema is almost completely diminished and she no longer has any open weeping areas. Her legs were however rehydrated with Vaseline bilaterally and foam placed to protect anterior ankles, then wrapped with Kerlix and xander wrapped from foot to knees to continue to maintain edema control. If patient goes to SNF on discharge I would recommend that this dressing regiment be continued on a 48-72 hour basis and that she follow up at the wound center as needed.
[2016-03-18] MEDS ORDERED: SPIR50TA2 PO (17:59)
--- NOTE | 2016-03-18 19:24 | NUR ---
IV and Leg wraps IV infiltrated. Meds delayed. New start by IV therapy. Leg wraps for lymphedema done by wound care this shift. Reports "too tight" and self removed. This RN loosened Kerlix wraps and reapplied. Requested xander wraps not be reapplied. Legs elevated on pillow at this time. Toes exposed, warm, movement intact and cap refill <3sec.
[2016-03-18 21:13] VITALS: BP 135/56; PULSE 61; RESP 18; O2SAT 97
[2016-03-18] MEDS: LORazepam 0.5 mg Tablet PO PRN (21:21)
[2016-03-19 05:01] VITALS: BP 145/63; PULSE 70; RESP 20; O2SAT 95
[2016-03-19 06:54] LABS: BASOPHILS % (AUTO) 0.2 % (0-3); EOSINOPHILS % (AUTO) 8.1 % (0-5); MONOCYTES % (AUTO) 7.9 % (4-12); Mean Corpuscular Hemoglobin 27.1 pg (27.0-35.0); Mean Corpuscular Volume 84.3 fL (81-100); NEUTROPHILS % (AUTO) 66.7 % (40-74); Platelet Count 360 bil/L (150-400)
[2016-03-19 07:13] LABS: Phosphorus 3.2 mg/dL (2.5-4.9)
[2016-03-19] MEDS: Pantoprazole 20 mg ER24 Tablet PO SCH (07:45)
[2016-03-19] MEDS: Verapamil SR 240 mg ER12 Tablet PO SCH (07:45)
--- NOTE | 2016-03-19 10:05 | PCM.DIMED ---
Discharge Instructions Date of Service Mar 18, 2016 Dates of Hospitalization Mar 11, 2016 at 15:40 Discharge Diagnosis Discharge Diagnosis Flare of restless leg syndrome acute encephalopathy, toxic metabolic secondary to medicine overdose LUDWIN urinary retention chronic hyponatremia acute on chronic Heart failure with preserved EF. Medication Instructions Please note that spironolactone dose was decreased to 25mg from 50mg given kidney injury Diet Low fat, Low Sodium, Heart Healthy Patient Instructions You were hospitalized with multiple problems, now it's all resolving. Instruction for Alf Facility/future provider -Patient developed LUDWIN secondary to dehydration, likely induced from excessive diuretics, was held then developed pulmonary edema from fluid resuscitation, responded significantly to Lasix 40 mg twice a day. At this point, we will plan to resume her Aldactone, Please note that spironolactone dose was decreased to 25mg from 50mg given ongoing acute kidney injuries, please adjust diuretics based on fluid status, renal function -Please continue zolpidem, patient has baseline significant insomnia. -Patient failed voiding trial multiple times, also transiently developed gross hematuria, which resolved with Mcintosh cath institution. Please continue Mcintosh for now, have her follow with urologist(consulted during hospitalization) for further involution and treatment -Initially there was a concern for changes in mental status, likely from excessive sedatives, pt quickly recovered, mentating well at this point Follow-up plan Please note that you have to reschedule your bowel surgery in the near future, please follow with your general surgeon Please follow up with given urinary retention, we will keep your urinary catheter for now. Please follow up with your primary doctor in 2weeks Follow-up Provider: Orion Angulo Follow-up with PCP in: 2 weeks Melony Knox MD Mar 18, 2016 17:59
--- NOTE | 2016-03-19 11:17 | NUR ---
Called and spoke Violette in admissions at [facility] and asked for a 1230 transport. Updated BOWLING BALL PATCHER
[2016-03-19] MEDS: LORazepam 0.5 mg Tablet PO PRN (11:39)
--- NOTE | 2016-03-19 12:48 | NUR ---
Discharge D/C to [facility] via transport and w/c. Mcintosh in place and patent. Pt comfortable with plan of care. Pt left floor with all belongings. Report called to admit RN at [facility] [id number]
--- NOTE | 2016-03-19 14:23 | NUR ---
Social Work: Discharge Data: Pt is on day 8 of hospitalization. EMR reviewed. D/C orders are in. UR specialist set up transportation with [facility] at 12:30pm. Pt was picked up at this time. NEUROSURGICAL NURSE received a phone call from [facility] requesting prescriptions for pt. NEUROSURGICAL NURSE paged MD who states they will be completed in half an hour. NEUROSURGICAL NURSE will then fax them to [facility]. Assessment: Pt who is independent at baseline. Plan: Pt discharged to [facility] at 12:30pm via wheel chair van. NEUROSURGICAL NURSE will fax over prescriptions when MD completes. ALICIA Artis Addendum: 03/19/16 at 1506 by KAREN JUSTICE SS ALICIA faxed prescriptions to [facility]. ALICIA Artis
[2016-03-19] MEDS ORDERED: FENT-2 TOP (15:00)
[2016-03-19] MEDS ORDERED: OXYC10TA8 PO (15:00)
[2016-03-19] MEDS ORDERED: ZOLP5TAB6 PO (15:00)
[2016-03-19] MEDS ORDERED: LORA1TAB PO (15:00)
--- NOTE | 2016-03-21 12:21 | PCM.DC.MED ---
Discharge Summary Date of Service Mar 19, 2016 Dates of Hospitalization Date of Hospital Admission Mar 11, 2016 at 15:40 Date of Discharge: Mar 19, 2016 Providers: Admitting Physician: Helga Freedman DO Primary Care Physician: Siva Voss MD Attending Physician: Helga Freedman DO Diagnosis at Time of Discharge Diagnosis at Time of Discharge Flare of restless leg syndrome acute encephalopathy, toxic metabolic secondary to medicine overdose LUDWIN on CKD Gross hematuria, urinary retention chronic hyponatremia acute CHF exacerbation with preserved EF. congenital gut malrotation intermittent fever, Hypertension, Hypothyroidism. Obstructive sleep apnea. Chronic lower extremity lymphedema. MRSA history. Acute episode of anxiety, agitation Procedures XRay, CTs & MRIs PROCEDURE: X-RAY CHEST ONE VIEW, PORTABLE ([id number]) INDICATIONS: wheezing TECHNIQUE: One view of the chest was acquired. COMPARISON: [facility], CR, XR CHEST 1VW (PORTABLE), 03/11/2016, 11: 16. FINDINGS: Surgical changes and devices: Left shoulder arthroplasty. Multiple epigastric and right upper quadrant surgical clips. Lungs and pleura: No pleural effusions or pneumothorax. Interstitium is prominent the mild edema suspected. Airspace opacity noted left lung base where there is a small left pleural effusion.. Mediastinum: Mediastinal contours appear normal. Heart size is normal. Bones and chest wall: No suspicious bony lesions. Overlying soft tissues appear unremarkable. IMPRESSION: 1. Mild edema and/or pneumonia involving the left lung base. Dictated by: Donavan Nova RRA Interpreted: Tran Perdue MD on 03/16/2016 at 13:19 Transcribed by: JERROD on 03/16/2016 at 13:20 Approved by: Tran Perdue MD, PhD on 03/16/2016 at 17:12 PROCEDURE: CT BRAIN WITHOUT CONTRAST ([id number]) INDICATIONS: altered mental status TECHNIQUE: Noncontrast 4.5 mm thick angled axial sections acquired from the foramen magnum to the vertex, with coronal reformats. COMPARISON: [facility], CT, CT BRAIN WO CON, 03/06/2015, 19:11. FINDINGS: Image quality: Mild motion is present, limiting fine detail evaluation within some regions. CSF spaces: Basal cisterns are patent. No extra-axial fluid collections. The ventricles are symmetric in size and shape. Brain: No intracranial bleeds or masses. There is cerebral volume loss for age , with resultant ventricular and sulcal prominence. There are periventricular and deep white matter chronic small vessel ischemic changes. There is intracranial internal carotid artery atherosclerosis. Skull and face: Calvarium and visualized facial bones appear intact, without suspicious lesions. Sinuses: Visualized sinuses and mastoids are clear. IMPRESSION: 1. No acute intracranial process. 2. Moderate atrophy and chronic microvascular ischemic changes. Dictated by: Teena Arora M.D. on 03/11/2016 at 12:44 Approved by: Teena Arora M.D. on 03/11/2016 at 12:44 PROCEDURE: CT ABDOMEN AND PELVIS WITHOUT CONTRAST ([id number]) INDICATIONS: fever urinary retention gut marotation TECHNIQUE: After the administration of oral contrast, 5 mm thick sections acquired from the diaphragms to the symphysis. 5 mm coronal and sagittal reformats were performed. For radiation dose reduction, the following was used: automated exposure control, adjustment of mA and/or kV according to patient size. COMPARISON: [facility], CT, CT ABD PELVIS WO CON, 01/19/2016, 22: 42. FINDINGS: Image quality: Excellent. ABDOMEN: Lung bases: Mild bilateral pleural effusions, left greater than right. Minimal appearance of superimposed consolidation on the left. Solid organs: Liver and spleen are normal in size. Gallbladder has been removed. The lungs are dictation. Pancreas is normal in size. No adrenal nodules. Both kidneys are atrophic without obstruction. Peritoneum and bowel: Bowel loops demonstrate normal wall thickness and caliber. No free fluid or air. Colon diverticula are present without associated inflammatory change. Nodes and vessels: No retroperitoneal or mesenteric adenopathy by size criteria. Aorta and inferior vena cava are normal in size. Miscellaneous: No ventral hernias. PELVIS: Genitourinary: Visualized portions of the bladder grossly unremarkable. However , portions of the lower pelvis are suboptimally visualized secondary to metallic streak artifact from left hip arthroplasty. There is several foci of air identified within the bladder. Miscellaneous: No inguinal hernias or adenopathy. Bones: No suspicious bony lesions. No vertebral body compression fractures. IMPRESSION: 1. Mild to moderate bilateral pleural effusions. Small area of consolidation is noted on the left possibly atelectasis or developing airspace disease such as pneumonia. 2. Diverticulosis. 3. No obstruction. 4. The bladder is distended with several foci of air. Air can be indicative infection or inflammation, including cystitis. Dictated by: Teena Arora M.D. on 03/13/2016 at 21:54 Approved by: Teena Arora M.D. on 03/13/2016 at 21:54 Brief History History and physical obtained by on 03/11 HPI: 85-year-old female presents with the complaint of restless leg syndrome. Patient states that she is a 3-4 year history of restless leg however last night she was unable to find relief from the restless leg. She took 3 doses of her Ropinirole and Mirapex without relief at 1900 last night. Information was collected from the ED attending who stated that he also attempted to give the patient another dose of pramipexole, along with Ativan and Haldol. The patient was stable while being worked up by the emergency room. When I presented in the afternoon to examine the patient and she was very somnolent and minimally responsive. It was then found that the patient was having mario blood from the rectum. Patient's daughter and son-in-law arrived later and were able to provide further history. The patient was supposed to have surgery with Dr. Raines today however the patient called stating that she was not feeling well and wanted to cancel the surgery. The patient has a congenital malrotation of the gut and the surgery was to going decompress any medications as the patient has had chronic one to instructions and is currently only on a liquid diet. Hospital Course #Acute encephalopathy, POA, likely toxic metabolic, pt required multiple medications in the ED for flare of RLS sx. then patient was sedated due to medicine, resolved quickly, maintained adequate level of consciousness throughout hospital course. #Gross hematuria, urinary retention, POA, pt was initially inserted jean-baptiste for possible urinary retention, d/hailey jean-baptiste to prevent UTI, Repeat UA showed hematuria, retained urine >1liters with small clots and gross hematuria, had to reinserted jean-baptiste cath. 03/16 d/hailey jean-baptiste but retained agin so jean-baptiste reinserted, gross hematuria completely cleared.there was initial concern of GIB, not hematuria, but h/h stable, no active GIB observed so excluded. pt was briefly evalulated by Urology, recommended follow up with Urology for CT/cystoscopy, plan is to keep indwelling Jean-Baptiste at this point, try bladder training with intermittent clamping, pt will be discharged with jean-baptiste and Urology follow up #hyponatremia, likely due to CHF, [id number] today, recommended fluid restriction #Mild LUDWIN on CKD3, developed due to ATN with aggressive diuresis with lasix, held all of diuretics, since renal function stable, plan is to resume aldactone 25mg upon d/c w/o lasix. #Acute onset dyspnea secondary to fluid overload from IVF given, in the setting of HFpEF. CXR showed PVC, elevated BNP on labs, developed 03/15-. s/p lasix 40mg po x2, had brisk urine output net -4.7liters, sx improved significantly. #congenital gut malrotation, hx of SBO, POA, scheduled for elective surgery, CT abd showed benign findings. pt was seen by Surgery given benign exam, lactate, normal abdominal film, no Ix for urgent surgery, likely needs to reschedule when d/c #worsening RLS symptoms, POA. Although this was the chief complaint on admission, pt denied symptoms throughout the course, continued home dose Ropinirole #intermittent fever, POA. source unclear, possible source-urologic infection given CT findings, She was given one-time doses of levofloxacin and metronidazole then stopped, again febrile 37.9 03/13. repeat UA negative. Since, pt remained afebrile more than 6days with abx, deemed safe for d/c. #Hypertension, continued home diltiazem ER 240mg, losartan, hydralazine IV prn # Hypothyroidism. POA. Continued oral Synthroid # Obstructive sleep apnea. POA. Monitor for now # Chronic lower extremity lymphedema. followed by Wound care, AINSLEY bandaged. it was noted that aldactone was new regimen started Dec- last yr, held during hospitalization, resumed given stable renal function. # MRSA history. not active. #Acute episode of anxiety, agitation and restless legs. pt required significant dose of ativan prn, zolpidem. Exam Vital Signs (Last) Date Time Temp Pulse Resp B/P Pulse Ox O2 Delivery O2 Flow Rate FiO2 03/19/16 05:01 36.4 70 20 145/63 95 Room Air Exam NAD, comfortably laying down on the bed no JVD, MMM, no LAD RRR, nl s1, s2 no mrg CTAB, no w,c S,ND,NT,normoactive BS+ warm, no edema, pulses 2/2 Test 03/11/16 08:33 03/11/16 08:40 03/11/16 08:59 03/12/16 02:30 Hold Urine Received (Received) Troponin T 0.012ug/L (0.0-0.011) Hold Evans Top Tube Received (Received) Prothrombin Time 10.6sec (8.1-12.5) Prothromb Time International Ratio 0.99ratio Test 03/13/16 08:19 03/13/16 08:45 03/13/16 09:55 03/16/16 06:50 Total Creatine Kinase 115U/L (21-215) Lactic Acid Level 1.5mmol/L (0.4-2.0) Urine Color Red (YELLOW) Urine Appearance Cloudy (CLEAR,HAZY) Urine pH 7.0 (5.0-8.0) Urine Specific Lincoln 1.010 (1.003-1.035) Urine Protein 30mg/dL (NEG,TRACE) Urine Glucose (UA) Negativemg/dL (NEGATIVE) Urine Ketones 15mg/dL (NEGATIVE) Urine Occult Blood Large (NEGATIVE) Urine Nitrite Negative (NEGATIVE) Urine Bilirubin Negative (NEGATIVE) Urine Urobilinogen Normalmg/dL (NORMAL) Urine Leukocyte Esterase Negative (NEGATIVE) Urine RBC >50/hpf (0-2) Urine WBC 0-5/hpf (0-5) Urine Epithelial Cells None/hpf (NONE-MOD) Urine Crystals None seen (NONE SEEN) Urine Bacteria None/hpf (NONE-FEW) Urine Hyaline Casts None/lpf (NONE) Urine Granular Casts None seen (NONE SEEN) Urine Waxy Casts None seen (NONE SEEN) Urine Red Blood Cell Casts None seen (NONE SEEN) Urine White Blood Cell Casts None seen (NONE SEEN) Urine Mucus None seen (None Seen) Urine Trichomonas None seen (NONE SEEN) Urine Yeast None (NONE SEEN) Urinalysis Comment None Urine Culture Reflexed Not indicated Pro-B-Type Natriuretic Peptide 1917pg/mL (0-738) Procalcitonin 0.16ng/mL (See Comment) Test 03/19/16 06:10 White Blood Count 9.0th/mm3 (3.8-10.1) Red Blood Count 3.43mil/mm3 (3.90-5.20) Hemoglobin 9.3g/dL (12.0-15.6) Hematocrit 28.9% (35.0-46.0) Mean Corpuscular Volume 84.3fL (81-100) Mean Corpuscular Hemoglobin 27.1pg (27.0-35.0) Mean Corpuscular Hemoglobin Concent 32.2% (32.0-37.0) Red Cell Distribution Width 16.3% (12.3-15.4) Platelet Count 360bil/L (150-400) Neutrophils (%) (Auto) 66.7% (40-74) Lymphocytes (%) (Auto) 16.8% (14-46) Monocytes (%) (Auto) 7.9% (4-12) Eosinophils (%) (Auto) 8.1% (0-5) Basophils (%) (Auto) 0.2% (0-3) Sodium Level 131mEq/L (134-144) Potassium Level 4.2mEq/L (3.5-5.2) Chloride Level 95mEq/L (97-108) Carbon Dioxide Level 27mmol/L (18-29) Blood Urea Nitrogen 16mg/dL (8-27) Creatinine 1.18mg/dL (0.57-1.00) Estimat Glomerular Filtration Rate 63mL/min (>59) Glucose Level 118mg/dL (60-99) Calcium Level 8.1mg/dL (8.5-10.1) Phosphorus Level 3.2mg/dL (2.5-4.9) Magnesium Level 2.0mg/dL (1.6-2.6) Total Bilirubin 0.2mg/dL (0.0-1.2) Aspartate Amino Transf (AST/SGOT) 12U/L (0-50) Alanine Aminotransferase (ALT/SGPT) 6U/L (0-32) Alkaline Phosphatase 77U/L (25-165) Total Protein 4.7g/dL (6.4-8.4) Albumin 2.8g/dL (3.4-5.0) Discharge Medications Discharge Medications Albuterol HFA (Proair HFA) 8.5 Gm Hfa.aer.ad 2 PUFFS INHALATION Q4H Prescribed by: GEETHA RINCON MD Aspirin (Aspirin) 325 Mg Tablet 325 MG PO BID (Reported) Fentanyl 75 mcg/hr Patch (Fentanyl 75 mcg/hr Patch) 1 Each Patch.td72 1 EACH TOP Q3D Prescribed by: MELONY PARRA MD Levothyroxine (Levothyroxine) 112 Mcg Tablet 112 MCG PO DAILY (Reported) Losartan Potassium (Losartan Potassium) 100 Mg Tablet 100 MG PO DAILY (Reported ) Omeprazole (Omeprazole) 20 Mg Tablet.dr 20 MG PO DAILY (Reported) Ropinirole (Ropinirole) 2 Mg Tablet 1-2 MG PO Evening (Reported) 2-3 hours before bedtime Spironolactone (Spironolactone) 50 Mg Tablet 25 MG PO DAILY Prescribed by: MELONY PARRA MD Verapamil ER (Calan SR) 240 Mg Tablet 240 MG PO DAILY Prescribed by: NISREEN ROMAN Zolpidem (Zolpidem) 5 Mg Tablet 2.5-5 MG PO HS Prescribed by: MELONY PARRA MD As needed Lorazepam (Lorazepam) 1 Mg Tablet 0.5-1 MG PO Q12H PRN PRN For Anxiety Prescribed by: MELONY PARRA MD oxyCODONE (oxyCODONE) 10 Mg Tablet 10 MG PO Q4-6H PRN PRN For Pain Prescribed by: MELONY PARRA MD Additional med instructions Please note that spironolactone dose was decreased to 25mg from 50mg given kidney injury Followup Plan Disposition: SNF Follow-up plan Please note that you have to reschedule your bowel surgery in the near future, please follow with your general surgeon Please follow up with given urinary retention, we will keep your urinary catheter for now. Please follow up with your primary doctor in 2weeks Discharge Diet: Low fat, Low Sodium, Heart Healthy Patient Instructions You were hospitalized with multiple problems, now it's all resolving. Instruction for [facility] Facility/future provider -Patient developed LUDWIN secondary to dehydration, likely induced from excessive diuretics, was held then developed pulmonary edema from fluid resuscitation, responded significantly to Lasix 40 mg twice a day. At this point, we will plan to resume her Aldactone, Please note that spironolactone dose was decreased to 25mg from 50mg given ongoing acute kidney injuries, please adjust diuretics based on fluid status, renal function -Please continue zolpidem, patient has baseline significant insomnia. -Patient failed voiding trial multiple times, also transiently developed gross hematuria, which resolved with Jean-Baptiste cath institution. Please continue Jean-Baptiste for now, have her follow with urologist(consulted during hospitalization) for further involution and treatment -Initially there was a concern for changes in mental status, likely from excessive sedatives, pt quickly recovered, mentating well at this point Follow-up Provider: Orion Angulo Follow-up with PCP in: 2 weeks Time spent 65min Melony Parra MD Mar 21, 2016 12:20
== END 2016-03-19 12:53 | DRG 56 ==
LOC: EDBD 07:53 → SED 07:53 → OSC 15:40 → OBSVTOIN 15:40 → OSC 16:15 → PCC 20:42 → MPC 03-12 20:55
PROVIDERS: ADMIT Neuromusculoskeletal Medicine & OMM; ATTEND Neuromusculoskeletal Medicine & OMM
DX: G25.81 Restless legs syndrome (principal); G92 Toxic encephalopathy; I50.41 Acute combined systolic (congestive) and diastolic (congestive) heart failure; E87.1 Hypo-osmolality and hyponatremia; Q43.3 Congenital malformations of intestinal fixation; E03.9 Hypothyroidism, unspecified; I12.9 Hypertensive chronic kidney disease with stage 1 through stage 4 chronic kidney disease, or unspecified chronic kidney disease; N18.3 Chronic kidney disease, stage 3 (moderate); K57.90 Diverticulosis of intestine, part unspecified, without perforation or abscess without bleeding; K21.9 Gastro-esophageal reflux disease without esophagitis; F41.9 Anxiety disorder, unspecified; E55.9 Vitamin D deficiency, unspecified; Z79.51 Long term (current) use of inhaled steroids; G47.33 Obstructive sleep apnea (adult) (pediatric); R13.10 Dysphagia, unspecified; M81.0 Age-related osteoporosis without current pathological fracture; R50.9 Fever, unspecified; R33.9 Retention of urine, unspecified; R31.0 Gross hematuria; Z66 Do not resuscitate; T50.991A Poisoning by other drugs, medicaments and biological substances, accidental (unintentional), initial encounter; Y92.230 Patient room in hospital as the place of occurrence of the external cause; Z86.73 Personal history of transient ischemic attack (TIA), and cerebral infarction without residual deficits; Z79.82 Long term (current) use of aspirin; Z86.14 Personal history of Methicillin resistant Staphylococcus aureus infection

== ENCOUNTER 2016-04-12 19:45 | Emergency (ER) | payer MEDICARE, OTHER ==
[~2016-04-12] VITALS: Ht 154.9 cm; Wt 54.5 kg
[2016-04-12 19:48] VITALS: BP 165/74; PULSE 91; RESP 16; O2SAT 97
[2016-04-12 21:23] LABS: BASOPHILS % (AUTO) 0.5 % (0-3); EOSINOPHILS % (AUTO) 4.3 % (0-5); MONOCYTES % (AUTO) 10.4 % (4-12); Mean Corpuscular Hemoglobin 26.5 pg (27.0-35.0); Mean Corpuscular Volume 82.8 fL (81-100); NEUTROPHILS % (AUTO) 70.7 % (40-74); Platelet Count 441 bil/L (150-400)
--- NOTE | 2016-04-12 21:33 | ED.REPORT ---
HPI-Extremity Problem Lower Date of Service Apr 12, 2016 ED Provider: Karlos Sanchez MD This is an 85 year old female with a history of CHF, asthma, TIA, HTN, chronic kidney disease, hyperlipidemia, restless leg syndrome presenting to the emergency department complaining of bilateral lower extremity swelling that worsened yesterday. This is associated with restless legs. Pt states she was on furosemide and ropinirole but those medications were not continued during her two-week stay at [facility]. She was discharged three days ago and had not restarted the medications. Denies LE pain, chest pain, shortness of breath. Nursing Notes Stated Complaint: LOWER LEG SWELLING Chief Complaint: Extremity Trauma Nursing Notes Reviewed: Yes ([employer], Kofax not reconciled) Allergies: Coded Allergies: cephalexin (Verified Allergy, Severe, Rash,Itching,, 05/04/15) duloxetine (Verified Allergy, Severe, Rash, 05/04/15) cefazolin (Verified Allergy, Intermediate, RASH, 02/07/15) NSAIDS (Non-Steroidal Anti-Inflamma (Verified Allergy, Mild, GI intolerance., 02/07/15) venlafaxine (Verified Allergy, Mild, Visual disturbance, 02/07/15) gabapentin (Verified Allergy, Unknown, fatigue and diarrhea, 02/07/15) lisinopril (Verified Allergy, Unknown, Cough, 02/07/15) sertraline (Verified Allergy, Unknown, fatigue, 02/07/15) doxycycline (Verified Adverse Reaction, Severe, Nausea,Vomiting, 05/04/15) hydroxyzine (Verified Adverse Reaction, Intermediate, sensitivity: hands and feet get blisters, 02/07/15) Proton Pump Inhibitors (Verified Adverse Reaction, Unknown, epigastric pain, 05/04/15) prednisolone (Verified Adverse Reaction, Unknown, diarrhea, 05/04/15) Scheduled Albuterol HFA (Proair HFA) 8.5 Gm Hfa.aer.ad 2 PUFFS INHALATION Q4H Aspirin (Aspirin) 325 Mg Tablet 325 MG PO BID Fentanyl 75 mcg/hr Patch (Fentanyl 75 mcg/hr Patch) 1 Each Patch.td72 1 EACH TOP Q3D Furosemide (Furosemide) 20 Mg Tab 20 MG PO DAILY Take 2 tabs once a day for 3 days, then take once a day Levothyroxine (Levothyroxine) 112 Mcg Tablet 112 MCG PO DAILY Losartan Potassium (Losartan Potassium) 100 Mg Tablet 100 MG PO DAILY Omeprazole (Omeprazole) 20 Mg Tablet.dr 20 MG PO DAILY Potassium Chloride ER (Potassium Chloride ER) 10 Meq Tablet 10 MEQ PO DAILY TAKE WITH FOOD Ropinirole (Ropinirole) 2 Mg Tablet 1-2 MG PO Evening 2-3 hours before bedtime Spironolactone (Spironolactone) 50 Mg Tablet 25 MG PO DAILY Verapamil ER (Calan SR) 240 Mg Tablet 240 MG PO DAILY Zolpidem (Zolpidem) 5 Mg Tablet 2.5-5 MG PO HS Scheduled PRN Lorazepam (Lorazepam) 1 Mg Tablet 0.5-1 MG PO Q12H PRN PRN For Anxiety oxyCODONE (oxyCODONE) 10 Mg Tablet 10 MG PO Q4-6H PRN PRN For Pain General Time Seen by MD: 21:06 Chief Complaint Other Hx Obtained From: Patient Arrived By: Walk-in Onset Occurred: Yesterday Symptom Duration: Since onset Severity: Current: Moderate Pertinent Negative: Pt denies other symptoms Recent Healthcare: No recent doctor visit, No recent hospitalization Similar Sx Previous: No Past Medical History Past Medical History Notes: Past Medical History 1. Transient ischemic attack with right upper extremity weakness, improved significantly. CT scan and MRI of the brain were negative for any acute stroke. 2. Hypertension. 3. Chronic kidney disease stage III. 4. Hypothyroidism. 5. History of restless leg syndrome. 6. Obstructive sleep apnea. 7. Hyperlipidemia. 8. Chronic lower extremity lymphedema. 9. Gastroesophageal reflux disease. 10. Diverticulosis. 11. Osteoporosis. 12. Chronic depression. 13. Chronic fatigue syndrome. 14. Vitamin D deficiency . 15. Urinary tract infection. 16. Pancreatitis 17. Dysphagia with Ennis's esophagitis 18. Hiatal hernia 19. Right wrist septic arthritis 20. Post-herpatic neuralgia 21. Trigeminal neuralgia 22. history of heavy alcohol use 23. 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 Left hip fracture 25. On chronic on Lovenox prophylactic therapy. 26. Heart murmur with "leaky heart valve" 27. Anxiety 28. MRSA Reports: Asthma, Cancer, GERD, Transient ischemic attack Past Surgical History Left shoulder replacement Right total knee replacement Lumbar spine surgery x3 Left hip replacement Reports: Cataract surgery, Cholecystectomy, Hysterectomy Family History noncontributory Smoking History Never Smoker Social History Lives at [place] Previous suicide attempt Alcohol Use: In recovery Drug Use: Denies drug use Other Social History: Good social support, Local resident Occupation lives by self, working on going to [employer] Ambulatory Status Cane Review of Systems Constitutional: Denies: Chills, Fever Musculoskeletal: Reports: Extremity swelling, Denies: Back pain, Extremity pain, Neck pain Skin: Denies Diaphoresis Complete sys rev & neg: except as marked. Respiratory: Denies: Non-productive cough, Shortness of breath Cardiovascular: Denies: Chest pain GI: Denies: Abdominal pain, Nausea, Vomiting Physical Exam Initial Vital Signs Vital Signs (First) Date Time Temp Pulse Resp B/P Pulse Ox O2 Delivery O2 Flow Rate FiO2 04/12/16 19:48 36.7 91 16 165/74 97 Room Air Initial VS: Reviewed, Vital signs normal Head / Eyes: Atraumatic, Normocephalic, PERRL ENT: Mucous membranes moist, Conjunctiva normal, No scleral icterus Neck: Supple, Non-tender, Full range of motion Respiratory: Breath sounds normal, Clear to auscultation, No respiratory distress Cardiovascular: Regular rate & rhythm, Heart sounds normal, Intact distal pulses Abdomen / GI: Soft, Non-tender, No guarding, No rebound, No distention Upper Extremities: Vascular intact, Neuro intact, No swelling, No tenderness Skin: Warm, Dry, No cyanosis Neurologic: Alert, Oriented, Nonfocal Psychiatric: Mood/affect normal, Behavior normal, Normal thought content Lower Extremity / Pelvis / MS: Full range of motion, Neurologic intact, Vascular intact Wearing compression stockings, edema of both legs up to knees, no anasarca Ankle / Foot: Atraumatic, Inspection NL, Full range of motion, No swelling, No erythema, Non-tender, No deformity, Neurologic intact, Vascular intact, No edema General/Constitutional: Awake, Alert Appearance / Presentation: Positive: Frail Restless, upright walking around at times. NO visible distress. Interpretation & Diagnostics Lab Results Interpretation Result Diagram: 04/12/16195404/12/161954 Test 04/12/16 19:55 White Blood Count 6.0th/mm3 (3.8-10.1) Red Blood Count 3.43mil/mm3 (3.90-5.20) Hemoglobin 9.1g/dL (12.0-15.6) Hematocrit 28.4% (35.0-46.0) Mean Corpuscular Volume 82.8fL (81-100) Mean Corpuscular Hemoglobin 26.5pg (27.0-35.0) Mean Corpuscular Hemoglobin Concent 32.0% (32.0-37.0) Red Cell Distribution Width 16.1% (12.3-15.4) Platelet Count 441bil/L (150-400) Neutrophils (%) (Auto) 70.7% (40-74) Lymphocytes (%) (Auto) 13.9% (14-46) Monocytes (%) (Auto) 10.4% (4-12) Eosinophils (%) (Auto) 4.3% (0-5) Basophils (%) (Auto) 0.5% (0-3) Hold Purple Top Tube Received (Received) Hold Blue Top Tube Received (Received) Sodium Level 134mEq/L (134-144) Potassium Level 4.3mEq/L (3.5-5.2) Chloride Level 97mEq/L (97-108) Carbon Dioxide Level 24mmol/L (18-29) Blood Urea Nitrogen 18mg/dL (8-27) Creatinine 1.17mg/dL (0.57-1.00) Estimat Glomerular Filtration Rate 63mL/min (>59) Glucose Level 143mg/dL (60-99) Calcium Level 8.9mg/dL (8.5-10.1) Magnesium Level 1.8mg/dL (1.6-2.6) Total Bilirubin 0.3mg/dL (0.0-1.2) Aspartate Amino Transf (AST/SGOT) 15U/L (0-50) Alanine Aminotransferase (ALT/SGPT) 9U/L (0-32) Alkaline Phosphatase 89U/L (25-165) Pro-B-Type Natriuretic Peptide 552.8pg/mL (0-738) Total Protein 6.2g/dL (6.4-8.4) Albumin 3.6g/dL (3.4-5.0) Hold Stuart Top Tube Received (Received) Hold Evans Top Tube Received (Received) Lab Results Interpretation: CBC chronic anemia, unchanged from recent admit CMP trace renal insufficiency improved BNP mildly elevated Re-Eval/Medical Decision Med Decision/Clinical Course This is an 85-year-old female who presents complaining of increasing lower extremity edema over the past several days to week. She denies chest pain or shortness of breath. No other complaints except for having restless legs which is a chronic issue for which she like her regular routine medication. Patient was recently admitted to the hospital, and came in on Lasix, but reports she was in place of [facility] or where she was not on Lasix, and when she went home shooting go home on any Lasix either-and now she has edema which she suffered before. She thinks she just Lasix. On exam she is energetic appears well and is pleasant. She does have lower extremity edema and is wearing compression stockings. Labs were obtained and were normal. The patient received a dose of furosemide 40 mg IV. Review the discharge summary in the hospitalization of the patient's Lasix dose was adjusted. It does appear that at discharge she was not discharged on furosemide although seems to be if plan outlining of Soraya reinitiate furosemide and add Aldactone as well-neither which appears to have recurred. Reviewing the notes I find a confusing and I am not exactly certain what her routine dose was. But it does appear she used well with the 40 mg dose for several days-side started here. I have attempted to contact the on-call PCP, but have been unsuccessful over the past several hours. Plan at this point is to provide the patient 40 mg a day of Lasix for the first 3 days, then back off to 20 mg a day with instructions that tomorrow during normal hours to call her primary care physician to review her actual diuretic regimen as they might recommend it. She is discharged in good condition. Routine precautions were reviewed. She is instructed to weight-bear herself which she had done previously, this will help track the status of her fluid balance. Source of Hx: Old records Differential Diagnosis: Negative: Venous thromboembolism Counseled Regarding: Diagnosis, Lab results, Need for follow-up, When/why to return to ED Discharge & Departure Impression: Primary Impression: Congestive heart failure Congestive heart failure type: unspecified congestive heart failure type Congestive heart failure chronicity: acute on chronic Qualified Code: I50.9 - Heart failure, unspecified Disposition: Home Discharge Condition All VS Reviewed: Yes Condition: Stable Additional Instructions: 1. Restart your furosemide at 40mg twice a day for three days, then reduce to 20mg once a day. 2. Take potassium daily 10MEq once a day 3. Follow up Dr. Angulo to review your medicines - Call tomorrow to schedule appointment this week. 4. Continue to weigh yourself daily. 5. Return again if new or worsening symptoms Referrals: Siva Voss MD (PCP) Orion Angulo Scribe Attestation Portions of this note were transcribed by Bijan Erazo. I, Dr. Sanchez personally performed the history, physical exam and medical decision-making; I reviewed and confirmed the accuracy of the information in the transcribed note. Signed by: shannon Luo. 04/12/2016, 23:30. Karlos Sanchez MD Apr 12, 2016 21:33 BIJAN ERAZO Apr 12, 2016 21:35
[2016-04-12 21:34] LABS: Magnesium 1.8 mg/dL (1.6-2.6)
[2016-04-12] MEDS ORDERED: Furosemide 10 mg/mL 4 mL Inj IVPUSH ONE (21:50)
[2016-04-12 22:23] VITALS: BP 171/77; PULSE 95; RESP 20; O2SAT 96
[2016-04-12] MEDS ORDERED: FUR20 PO (22:42)
[2016-04-12] MEDS ORDERED: POTA10TA12 PO (22:42)
== END 2016-04-12 22:53 | disposition home or self-care (01) ==
LOC: EDBD 19:45 → SED 19:45
DX: I50.9 Heart failure, unspecified (principal); J45.909 Unspecified asthma, uncomplicated; I12.9 Hypertensive chronic kidney disease with stage 1 through stage 4 chronic kidney disease, or unspecified chronic kidney disease; N18.3 Chronic kidney disease, stage 3 (moderate); E78.5 Hyperlipidemia, unspecified; G25.81 Restless legs syndrome; K21.9 Gastro-esophageal reflux disease without esophagitis; Z86.73 Personal history of transient ischemic attack (TIA), and cerebral infarction without residual deficits; Z85.9 Personal history of malignant neoplasm, unspecified; Z79.82 Long term (current) use of aspirin; Z88.1 Allergy status to other antibiotic agents; Z88.8 Allergy status to other drugs, medicaments and biological substances; Z88.6 Allergy status to analgesic agent
CPT/HCPCS: 36415; 80053; 83735; 83880; 85025; 93005; 96374; 99284; J1940

== ENCOUNTER 2016-06-06 22:59 | Inpatient (IN) | payer MEDICARE, OTHER ==
[~2016-06-06] VITALS: Ht 154.9 cm; Wt 54.0 kg
[~2016-06-06 22:59] MED LIST changes: +FUR20 PO; +POTA10TA12 PO
[2016-06-06 23:02] VITALS: BP 197/66; PULSE 100; RESP 20; O2SAT 95
--- NOTE | 2016-06-06 23:18 | ED.REPORT ---
HPI-Abd Pain F 40 and Over Date of Service Jun 06, 2016 ED Provider: Odilon Richter MD Pt is an 85 y/o female w/ a hx of mid-gut malrotation and prior SBO, prior pancreatitis, GI bleed, HTN, GERD, TIA, CKD 3, presenting to the ED via EMS c/o nausea and vomiting onset prior to arrival. The patient had dinner at her daughter's place and ate "some unusual foods". She states she is allergic to soy and "must have eaten something bad". She c/o associated upper abdominal pain. She has been seeing surgeon Dr. Raines to set up surgery for her upper abdominal malrotation. She denies CP, SOB, fever, chills, hematemesis, diarrhea. Abdominal surgery: cholecystectomy Nursing Notes Stated Complaint: ABDOMINAL PAIN Chief Complaint: Female Abdominal Pain Nursing Notes Reviewed: Yes Allergies: Coded Allergies: cephalexin (Verified Allergy, Severe, Rash,Itching,, 05/04/15) duloxetine (Verified Allergy, Severe, Rash, 05/04/15) cefazolin (Verified Allergy, Intermediate, RASH, 02/07/15) NSAIDS (Non-Steroidal Anti-Inflamma (Verified Allergy, Mild, GI intolerance., 02/07/15) venlafaxine (Verified Allergy, Mild, Visual disturbance, 02/07/15) gabapentin (Verified Allergy, Unknown, fatigue and diarrhea, 02/07/15) lisinopril (Verified Allergy, Unknown, Cough, 02/07/15) sertraline (Verified Allergy, Unknown, fatigue, 02/07/15) doxycycline (Verified Adverse Reaction, Severe, Nausea,Vomiting, 05/04/15) hydroxyzine (Verified Adverse Reaction, Intermediate, sensitivity: hands and feet get blisters, 02/07/15) Proton Pump Inhibitors (Verified Adverse Reaction, Unknown, epigastric pain, 05/04/15) prednisolone (Verified Adverse Reaction, Unknown, diarrhea, 05/04/15) Scheduled Albuterol HFA (Proair HFA) 8.5 Gm Hfa.aer.ad 2 PUFFS INHALATION Q4H Aspirin (Aspirin) 325 Mg Tablet 325 MG PO BID Fentanyl 75 mcg/hr Patch (Fentanyl 75 mcg/hr Patch) 1 Each Patch.td72 1 EACH TOP Q3D Furosemide (Furosemide) 20 Mg Tab 20 MG PO DAILY Take 2 tabs once a day for 3 days, then take once a day Levothyroxine (Levothyroxine) 112 Mcg Tablet 112 MCG PO DAILY Losartan Potassium (Losartan Potassium) 100 Mg Tablet 100 MG PO DAILY Omeprazole (Omeprazole) 20 Mg Tablet.dr 20 MG PO DAILY Potassium Chloride ER (Potassium Chloride ER) 10 Meq Tablet 10 MEQ PO DAILY TAKE WITH FOOD Ropinirole (Ropinirole) 2 Mg Tablet 1-2 MG PO Evening 2-3 hours before bedtime Spironolactone (Spironolactone) 50 Mg Tablet 25 MG PO DAILY Verapamil ER (Calan SR) 240 Mg Tablet 240 MG PO DAILY Zolpidem (Zolpidem) 5 Mg Tablet 2.5-5 MG PO HS Scheduled PRN Lorazepam (Lorazepam) 1 Mg Tablet 0.5-1 MG PO Q12H PRN PRN For Anxiety oxyCODONE (oxyCODONE) 10 Mg Tablet 10 MG PO Q4-6H PRN PRN For Pain General Time Seen by MD: 23:14 Chief Complaint Vomiting moderate Hx Obtained From: Patient, EMS Arrived By: Ambulance Sudden in Onset?: No Onset Occurred: 1 - 4 hours ago Symptom Duration: Since onset Progression since Onset: Unchanged Location: : Abdomen upper Quality: Painful Radiation: : Does not radiate Severity: Current: Moderate Severity: Maximum: Moderate Past Medical History Past Medical History Notes: Past Medical History 1. Transient ischemic attack with right upper extremity weakness, improved significantly. CT scan and MRI of the brain were negative for any acute stroke. 2. Hypertension. 3. Chronic kidney disease stage III. 4. Hypothyroidism. 5. History of restless leg syndrome. 6. Obstructive sleep apnea. 7. Hyperlipidemia. 8. Chronic lower extremity lymphedema. 9. Gastroesophageal reflux disease. 10. Diverticulosis. 11. Osteoporosis. 12. Chronic major depression. 13. Chronic fatigue syndrome. 14. Vitamin D deficiency . 15. Urinary tract infection. 16. Pancreatitis 17. Dysphagia with Ennis's esophagitis 18. Hiatal hernia 19. Right wrist septic arthritis 20. Post-herpatic neuralgia 21. Trigeminal neuralgia 22. history of heavy alcohol use 23. 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 Left hip fracture 25. On chronic on Lovenox prophylactic therapy. 26. Heart murmur with "leaky heart valve" 27. Anxiety 28. MRSA 29. GI bleed Reports: Asthma, Cancer Past Surgical History Left shoulder replacement Right total knee replacement Lumbar spine surgery x3 Left hip replacement Reports: Cataract surgery, Cholecystectomy, Hysterectomy Family History noncontributory Smoking History Never Smoker Social History Lives at [facility] Previous suicide attempt Alcohol Use: In recovery Drug Use: Denies drug use Other Social History: Good social support, Local resident Occupation lives by self, working on going to [employer] Ambulatory Status Cane Review of Systems Constitutional: Denies: Chills, Fever Respiratory: Denies: Non-productive cough, Shortness of breath Cardiovascular: Denies: Chest pain, Dyspnea on exertion GI: Reports: Abdominal pain, Nausea, Vomiting, Denies: Diarrhea, Hematemesis Complete sys rev & neg: except as marked. Physical Exam Vital Signs Vital Signs (First) Date Time Temp Pulse Resp B/P Pulse Ox O2 Delivery O2 Flow Rate FiO2 06/06/16 23:02 36.9 100 20 197/66 95 Room Air Initial VS: Reviewed, Vital signs abnormal Head / Eyes: Atraumatic, Normocephalic, PERRL ENT: Mucous membranes moist, Conjunctiva normal, No scleral icterus Neck: Supple, Full range of motion Extremities: Vascular intact, Neuro intact, No swelling, No tenderness Skin: Warm, Dry, No cyanosis Neurologic: Alert, Oriented, Nonfocal Psychiatric: Mood/affect normal, Behavior normal, Normal thought content General/Constitutional: Awake, Alert, Cooperative, Not toxic appearing Appearance / Presentation: Positive: Uncomfortable Actively vomiting Respiratory / Chest: Atraumatic, Breath sounds NL, Breath sounds = bilat, No respiratory distress, No rales, No rhonchi, No wheezing, No retractions, No stridor, No chest tenderness, No chest wall deformity, No crepitus Cardiovascular: Regular rhythm, Heart sounds NL, No gallop, No murmurs, No rubs , Cap refill not delayed, Peripheral circulation NL Heart Rate / Rhythm: Positive: Tachycardia (mild) Abdomen: Atraumatic, No rebound Bowel Sounds / Distention: Positive: Distention mild Abdomen tender and firm diffusely Back: Full range of motion, Painless range of motion Kyphotic Interpretation & Diagnostics Lab Results Interpretation Result Diagram: 06/07/16 0545 06/07/16 0545 Test 06/06/16 23:18 06/06/16 23:45 Band Neutrophils % 0% (1-5) Hold Purple Top Tube Received (Received) Prothrombin Time 9.9sec (8.1-12.5) Prothromb Time International Ratio 0.93ratio Hold Blue Top Tube Received (Received) Magnesium Level 1.8mg/dL (1.6-2.6) Hold Seaton Top Tube Received (Received) Lactic Acid Level 0.8mmol/L (0.4-2.0) Hold Evans Top Tube Received (Received) ECG Interpretation ECG Interpretation: Sinus rhythm rate 98 Borderline prolonged NC interval Time: 00:20 Interpreted by: ED physician Normal ECG Interpretation: No acute ischemic changes, No change from prior ECGs CT Abd / Pelvis Interpretation Conclusion: Severe obstruction with massive dilatation of the stomach and first and second portions of the duodenum. The Volvulus cannot be excluded. Extensive diverticulosis without diverticulitis. Interpreted by Mac Stearns MD Study type: Abdominal CT no contrast Interpretation / Wet Read by: Interpret - Radiologist, Discussed w radiologist Procedures NG Tube Insertion Time: 02:50 Procedure Performed by: ED physician Site of Insertion: Nare right # of Attempts: 1 Size of Oral/NG Tube: 16 Fr Placement/Verification/Secured: Inserted w/o difficulty, Placement by gastric asp, Secured with tape Post-Procedure / Complications: Amount of aspirate (copious), No complications , Tolerated procedure well, Patient stable Re-Eval/Medical Decision Med Decision/Clinical Course 85-year-old prior small bowel obstruction presents again with a high small bowel obstruction. NG tube placed. She is still vomiting after two rounds of antiemetics. Admitted to medicine with surgical service consult. Re-Evaluation/Progress : Time of Eval: 02:58 Re-Evaluation/Progress Note: Pt rechecked. Informed pt of need for admission. Pt understands and agrees with plan for admission. All questions addressed. Consultation : Referral / Consult Name: Toi Gibson MD Consulted With: Hospitalist Call Returned at: 03:25 Direct Care Staffer: Will see patient, Agrees with eval, Agrees with plan, Accepts admit Counseled Regarding: Diagnosis, Lab results, Need for admission Discharge & Departure Primary Impression: SBO (small bowel obstruction) Additional Impression: Pancreatitis Chronicity: acute Pancreatitis type: unspecified pancreatitis type Acute pancreatitis complication: no infection or necrosis Qualified Code: K85.90 - Acute pancreatitis without necrosis or infection, unspecified Disposition: ADMITTED TO HOSPITAL Discharge Condition All VS Reviewed: Yes Condition: Stable Referrals: Kin Yang MD (PCP) Cassieibedward Attestation Portions of this note were transcribed by Ivan Asencio and Jayden Ramires. I, Dr. Richter personally performed the history, physical exam and medical decision -making; I reviewed and confirmed the accuracy of the information in the transcribed note. Signed by Ivan Asencio and Kwaku Crook, 06/07/16201 copies to: Kin Yang MD, Christopher W MD Jun 06, 2016 23:18 IVAN ASENCIO Jun 06, 2016 23:24 Total Bilirubin 0.4mg/dL (0.0-1.2) Aspartate Amino Transf (AST/SGOT) 16U/L (0-50) Alanine Aminotransferase (ALT/SGPT) 9U/L (0-32) Alkaline Phosphatase 105U/L (25-165) Total Protein 6.9g/dL (6.4-8.4) Albumin 3.8g/dL (3.4-5.0) Lipase 485U/L (13-60) Hold Seaton Top Tube Received (Received) Lactic Acid Level 0.8mmol/L (0.4-2.0) Hold Evans Top Tube Received (Received) ECG Interpretation ECG Interpretation: Sinus rhythm rate 98 Borderline prolonged NC interval Time: 00:20 Interpreted by: ED physician Normal ECG Interpretation: No acute ischemic changes, No change from prior ECGs CT Abd / Pelvis Interpretation Conclusion: Severe obstruction with massive dilatation of the stomach and first and second portions of the duodenum. The Volvulus cannot be excluded. Extensive diverticulosis without diverticulitis. Interpreted by Mac Stearns MD Study type: Abdominal CT no contrast Interpretation / Wet Read by: Interpret - Radiologist, Discussed w radiologist Procedures NG Tube Insertion Time: 02:50 Procedure Performed by: ED physician Site of Insertion: Nare right # of Attempts: 1 Size of Oral/NG Tube: 16 Fr Placement/Verification/Secured: Inserted w/o difficulty, Placement by gastric asp, Secured with tape Post-Procedure / Complications: Amount of aspirate (copious), No complications , Tolerated procedure well, Patient stable Re-Eval/Medical Decision Re-Evaluation/Progress : Time of Eval: 02:58 Re-Evaluation/Progress Note: Pt rechecked. Informed pt of need for admission. Pt understands and agrees with plan for admission. All questions addressed. Consultation : Referral / Consult Name: Toi Gibson MD Consulted With: Hospitalist Call Returned at: 03:25 Direct Care Staffer: Will see patient, Agrees with eval, Agrees with plan, Accepts admit Counseled Regarding: Diagnosis, Lab results, Need for admission Discharge & Departure Primary Impression: SBO (small bowel obstruction) Additional Impression: Pancreatitis Chronicity: acute Pancreatitis type: unspecified pancreatitis type Acute pancreatitis complication: no infection or necrosis Qualified Code: K85.90 - Acute pancreatitis without necrosis or infection, unspecified Disposition: ADMITTED TO HOSPITAL Discharge Condition All VS Reviewed: Yes Condition: Stable Referrals: Kin Yang MD (PCP) Cassieibedward Attestation Portions of this note were transcribed by Ivan Asencio and Jayden Ramires. I, Dr. Richter personally performed the history, physical exam and medical decision -making; I reviewed and confirmed the accuracy of the information in the transcribed note. Signed by Ivan Asencio and Kwaku Crook, 06/07/16 - 0202 copies to: Kin Yang MD, Christopher W MD Jun 06, 2016 23:18 IVAN ASENCIO Jun 06, 2016 23:24
[2016-06-06] MEDS ORDERED: 0.9% Sodium Chloride 1,000 ML IV ONE (23:22)
[2016-06-06] MEDS ORDERED: Ondansetron 2 mg/mL 2 mL Inj IVPUSH ONE (23:25)
[2016-06-06] MEDS ORDERED: fentaNYL-PF 50 mCg/mL 2 mL Inj IVPUSH PRN (23:25)
[2016-06-06 23:35] LABS: BASOPHILS % (AUTO) 0.3 % (0-3); MONOCYTES % (AUTO) 7.5 % (4-12); Mean Corpuscular Hemoglobin 25.7 pg (27.0-35.0); Mean Corpuscular Volume 82.3 fL (81-100); NEUTROPHILS % (AUTO) 78.5 % (40-74); Platelet Count 385 bil/L (150-400)
[2016-06-06 23:45] LABS: INR 0.93 ratio
[2016-06-06 23:57] LABS: Magnesium 1.8 mg/dL (1.6-2.6)
[2016-06-07] VITALS (10 sets, daily range): BP systolic 148–189; BP diastolic 54–80; PULSE 90–112; RESP 18–20; O2SAT 90–98
[2016-06-07] MEDS ORDERED: MetoCLOpramide 5 mg/mL 2 mL Inj IVPUSH ONE (00:05)
[2016-06-07] MEDS ORDERED: 0.9% Sodium Chloride 50 ML ONE (00:06)
[2016-06-07] MEDS ORDERED: Ketamine 10 mg/mL 20 mL Inj IV ONE ×2 (01:30→02:30)
[2016-06-07] MEDS ORDERED: Ondansetron 2 mg/mL 2 mL Inj IVPUSH PRN (01:50)
[2016-06-07] MEDS ORDERED: Polyethylene Glycol (PEG) 17 Gm Powder PO PRN (01:50)
[2016-06-07] MEDS ORDERED: Alum-Mag Hydrox-Simeth 30 mL Suspension PO PRN (01:50)
--- NOTE | 2016-06-07 02:04 | PCM.HPMED ---
Subjective Date of Service Jun 07, 2016 Primary Provider: Admitting Physician: Toi Gibson MD Primary Care Physician: Kin Yang MD Attending Physician: Toi Gibson MD Admit Status: From the Emergency Department Chief Complaint: Abdominal Pain, Nausea, Vomiting History of Present Illness: Pleasant 85 yo female with history of mid-gut malrotation and prior SBO, GI bleed, HTN, GERD, TIA, CKD 3, who presented to the ED via EMS c/o nausea and vomiting onset prior to arrival. At the time of my interview she thought 3 hours had passed since starting to feel unwell. She does have some chronic abdominal discomfort and has been seeing surgeon Dr. Raines to set up surgery for her "upper abdominal malrotation". Per Dr Paniagua's note: "The patient had dinner at her daughter's place and ate "some unusual foods". She states she is allergic to soy and "must have eaten something bad". She c/o associated upper abdominal pain. She She denies CP, SOB, fever, chills, hematemesis, diarrhea." Medication in the ED did largely resolve her nausea and abdominal pain. Review of Systems: 14point ROS is otherwise negative except as noted above in the HPI. Allergies Coded Allergies: cephalexin (Verified Allergy, Severe, Rash,Itching,, 05/04/15) duloxetine (Verified Allergy, Severe, Rash, 05/04/15) cefazolin (Verified Allergy, Intermediate, RASH, 02/07/15) NSAIDS (Non-Steroidal Anti-Inflamma (Verified Allergy, Mild, GI intolerance., 02/07/15) venlafaxine (Verified Allergy, Mild, Visual disturbance, 02/07/15) gabapentin (Verified Allergy, Unknown, fatigue and diarrhea, 02/07/15) lisinopril (Verified Allergy, Unknown, Cough, 02/07/15) sertraline (Verified Allergy, Unknown, fatigue, 02/07/15) doxycycline (Verified Adverse Reaction, Severe, Nausea,Vomiting, 05/04/15) hydroxyzine (Verified Adverse Reaction, Intermediate, sensitivity: hands and feet get blisters, 02/07/15) Proton Pump Inhibitors (Verified Adverse Reaction, Unknown, epigastric pain, 05/04/15) prednisolone (Verified Adverse Reaction, Unknown, diarrhea, 05/04/15) Home Medications Scheduled Albuterol HFA (Proair HFA) 8.5 Gm Hfa.aer.ad 2 PUFFS INHALATION Q4H Aspirin (Aspirin) 325 Mg Tablet 325 MG PO BID Fentanyl 75 mcg/hr Patch (Fentanyl 75 mcg/hr Patch) 1 Each Patch.td72 1 EACH TOP Q3D Furosemide (Furosemide) 20 Mg Tab 20 MG PO DAILY Take 2 tabs once a day for 3 days, then take once a day Levothyroxine (Levothyroxine) 112 Mcg Tablet 112 MCG PO DAILY Losartan Potassium (Losartan Potassium) 100 Mg Tablet 100 MG PO DAILY Omeprazole (Omeprazole) 20 Mg Tablet.dr 20 MG PO DAILY Potassium Chloride ER (Potassium Chloride ER) 10 Meq Tablet 10 MEQ PO DAILY TAKE WITH FOOD Ropinirole (Ropinirole) 2 Mg Tablet 1-2 MG PO Evening 2-3 hours before bedtime Spironolactone (Spironolactone) 50 Mg Tablet 25 MG PO DAILY Verapamil ER (Calan SR) 240 Mg Tablet 240 MG PO DAILY Zolpidem (Zolpidem) 5 Mg Tablet 2.5-5 MG PO HS Scheduled PRN Lorazepam (Lorazepam) 1 Mg Tablet 0.5-1 MG PO Q12H PRN PRN For Anxiety oxyCODONE (oxyCODONE) 10 Mg Tablet 10 MG PO Q4-6H PRN PRN For Pain PMH 1. 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 Transient ischemic attack with right upper extremity weakness, improved significantly. CT scan and MRI of the brain were negative for any acute stroke. 3. Hypertension. 4. Chronic kidney disease stage III. 5. Hypothyroidism. 6. History of restless leg syndrome. 7. Obstructive sleep apnea. 8. Hyperlipidemia. 9. Chronic lower extremity lymphedema. 10. Diverticulosis. 11. Osteoporosis. 12. Chronic major depression. 13. Chronic fatigue syndrome. 14. Vitamin D deficiency . 15. Urinary tract infection. 16. Pancreatitis 17. Dysphagia with Ennis's esophagitis 18. Hiatal hernia 19. Right wrist septic arthritis 20. Post-herpatic neuralgia 21. Trigeminal neuralgia 22. history of heavy alcohol use 23. Left hip fracture 24. Gastroesophageal reflux disease. 25. On chronic on Lovenox prophylactic therapy. 26. Heart murmur with "leaky heart valve" 27. Anxiety 28. MRSA 29. GI bleed Reports: Asthma, Cancer Surgical History Left shoulder replacement Right total knee replacement Lumbar spine surgery x3 Left hip replacement Reports: Cataract surgery, Cholecystectomy, Hysterectomy Family History Unknown, patient left home at age 16 and has no knowledge of her parents. Social History Hx Alcohol Use: Yes Hx Substance Use: No Hx Tobacco Use: No Smoking Status: Never Smoker Living Arrangement: Independent [facility] Exam Vital Signs Vital Sign - Last Date Time Temp Pulse Resp B/P Pulse Ox O2 Delivery O2 Flow Rate FiO2 06/07/16 00:20 176/74 06/06/16 23:02 36.9 100 20 95 Room Air Intake and Output 06/06/16 06/06/16 06/07/16 Cumulative From/Thru 15:00 23:00 07:00 06/06/16 23:02 - 06/07/16 00:35 Intake Total 1000 ml 1000 ml Balance 1000 ml 1000 ml Intake IV Total 1000 ml 1000 ml Exam General: Alert, Oriented X3, Cooperative, No Acute Distress Head: Normocephalic, atraumatic. External ears normal. Eyes: PERRLA, EOMI. Anicteric sclerae. Mouth: Mouth Normal, Mucous Membranes Moist/[place] Neck: Neck supple with full range of motion. Chest & Lungs: Clear to auscultation bilaterally with no crackles, wheezes, or rhonchi. Cardiovascular: Regular Rate/Rhythm, Normal S1, Normal S2, No Murmurs/Rubs/ Gallops Abdomen: Tender in upper abdomen bilaterally, Non-distended, No masses, Normoactive bowel tones, firm diffusely Musculoskeletal: Normal Range of Motion Extremities: Severe edema under pressure wrapping Lab and Diagnostics Labs Laboratory Tests Test 06/06/16 23:18 06/06/16 23:45 White Blood Count 9.9th/mm3 (3.8-10.1) Red Blood Count 3.62mil/mm3 (3.90-5.20) Hemoglobin 9.3g/dL (12.0-15.6) Hematocrit 29.8% (35.0-46.0) Mean Corpuscular Volume 82.3fL (81-100) Mean Corpuscular Hemoglobin 25.7pg (27.0-35.0) Mean Corpuscular Hemoglobin Concent 31.2% (32.0-37.0) Red Cell Distribution Width 16.9% (12.3-15.4) Platelet Count 385bil/L (150-400) Neutrophils (%) (Auto) 78.5% (40-74) Lymphocytes (%) (Auto) 11.5% (14-46) Monocytes (%) (Auto) 7.5% (4-12) Eosinophils (%) (Auto) 2.0% (0-5) Basophils (%) (Auto) 0.3% (0-3) Band Neutrophils % 0% (1-5) Hold Purple Top Tube Received (Received) Prothrombin Time 9.9sec (8.1-12.5) Prothromb Time International Ratio 0.93ratio Hold Blue Top Tube Received (Received) Sodium Level 139mEq/L (134-144) Potassium Level 3.7mEq/L (3.5-5.2) Chloride Level 98mEq/L (97-108) Carbon Dioxide Level 25mmol/L (18-29) Blood Urea Nitrogen 27mg/dL (8-27) Creatinine 1.40mg/dL (0.57-1.00) Estimat Glomerular Filtration Rate 51mL/min (>59) Glucose Level 132mg/dL (60-99) Calcium Level 9.6mg/dL (8.5-10.1) Magnesium Level 1.8mg/dL (1.6-2.6) Total Bilirubin 0.4mg/dL (0.0-1.2) Aspartate Amino Transf (AST/SGOT) 16U/L (0-50) Alanine Aminotransferase (ALT/SGPT) 9U/L (0-32) Alkaline Phosphatase 105U/L (25-165) Total Protein 6.9g/dL (6.4-8.4) Albumin 3.8g/dL (3.4-5.0) Lipase 485U/L (13-60) Hold [place] Top Tube Received (Received) Lactic Acid Level 0.8mmol/L (0.4-2.0) Hold [place] Top Tube Received (Received) Result Diagram: 06/06/16231706/06/162317 X-Rays, CTs and MRIs CT abd/pelv with reading pending. 12-lead ECG Sinus rhythm with rate of 98, borderline UT elongation at 207 Assessment & Plan Pleasant 85yo woman with history of SBO, cholecystectomy, gut malrotation ( currently being working up for surgery as outpatient) presented to our ED via EMS with 3 hours of increasing abdominal pain and vomiting. She has a complex medical history. 1. Abdominal pain with Nausea and vomiting likely secondary to SBO, awaiting read of CT of abd/pelv by radiology vs Pancreatitis with elevated lipase at 485. -Surgery will see pt in the morning -NPO -nasogastric tube to be reattempted after one failure. -NS 100ml/h IV -Ondansetron IV PRN -repeat lipase ordered, CRP ordered. 2. GI bleed chronic with chronic Anemia, perhaps secondary to report chronic gut malrotation, -consider transfusion of PRBCs if Hgb <7 3. Hypertension, -patient is NPO, holding home medications for now -last BP was 176/74, consider starting labetalol is pt becomes symptomatic 4. Chronic kidney disease stage III, Cr is 1.4 with baseline of hospital labs in the last year averaging below 1.2 -hydrate, avoid contrast dyes -hold diuretics awaiting morning labs to assess kidney function 5. Chronic lower extremity lymphedema with non-pressure ulcers -Consult wound care, she is already followed as an outpatient -Hold oral diuretics and start furosemide 20mg IV daily and spironolactone 75mg IV daily if kidney function has improved in the morning. 6. Hypothyroidism, holding home medication 7. History of restless leg syndrome, holding home medication. 8. Obstructive sleep apnea, discuss with patient, does she have home CPAP? 9. Gastroesophageal reflux disease. -Pantoprazole 40mg IV daily 10. Anxiety with history of chronic use of Lorazepam -Lorazepam 1mg IV q4h PRN 11. Pain,continue Fentanyl 50mcg IV q15m PRN PRN medications for constipation are available to patient. Pain Evaluation: Adequate Pain Control GI Prophylaxis: Proton Pump Inhibitor VTE Prophylaxis Indicated: Contraindicated Resuscitation Status: DNR/DNI:Do Not Resuscitate/Intubate Limited Interventions: Medications and IV Fluid Attending Statement The patient was seen and examined together with Dr. Hadley on 06/07 and I agree with the history, exam and plan as outlined in the note above. Palmer Hadley DO Jun 07, 2016 02:04 Toi Gibson MD Jun 07, 2016 03:37
--- NOTE | 2016-06-07 03:35 | NUR ---
Arrival to [facility] via WC, pt ambulates to bed with SBA. Her legs are wrapped bilaterally for chronic lymphadema. NG to suction, pt states she is comfortable and very tired. Care continues
[2016-06-07 03:47] LABS: APPEARANCE,URINE CLEAR (CLEAR,HAZY); COLOR,URINE STRAW (YELLOW); OCCULT BLOOD,URINE NEGATIVE (NEGATIVE)
[2016-06-07 03:48] LABS: UROBILINOGEN,URINE NORMAL (NORMAL)
[2016-06-07] MEDS: 0.9% Sodium Chloride 1,000 ML IV SCH ×2 (04:07→14:11)
[2016-06-07 06:13] LABS: BASOPHILS % (AUTO) 0.1 % (0-3); EOSINOPHILS % (AUTO) 0.1 % (0-5); Mean Corpuscular Hemoglobin 24.8 pg (27.0-35.0); Mean Corpuscular Volume 83.6 fL (81-100); NEUTROPHILS % (AUTO) 89.8 % (40-74); Platelet Count 291 bil/L (150-400)
[2016-06-07] MEDS ORDERED: Albuterol 2.5 mg/3 mL Inhalation Solution NEB PRN (07:00)
[2016-06-07] MEDS: Pantoprazole 4 mg/mL 10 mL Inj IVPUSH SCH (07:53)
[2016-06-07] MEDS: Sodium Chloride LOK Flush 10 mL Syringe IVFLUSH SCH ×2 (07:53→16:08)
[2016-06-07] MEDS: MeTOProlol 1 mg/mL 5 mL Inj IVPUSH ONE ×2 (07:53→08:09)
--- NOTE | 2016-06-07 08:09 | NUR ---
Blood Pressure One time does of lopressor held per MD. Blood pressure this AM 148/67, heart rate 90. Call light and tray table within reach. Will continue to monitor patient hourly.
--- NOTE | 2016-06-07 08:17 | DRSVH ---
PROCEDURE: CT ABDOMEN AND PELVIS WITHOUT CONTRAST ([id number]) INDICATIONS: 85 year-old female with mid abdominal pain and vomiting. TECHNIQUE: Intravenous contrast was not administered due to low GFR level. Noncontrast 5 mm thick sections acqui red from the diaphragms to the symphysis. 5 mm coronal and sagittal reformats were then performed. For radiation dose reduction, the following was used: automated exposure control, adjustment of mA a nd/or kV according to patient size. COMPARISON: [facility], CT, CT ABD PELVIS W&WO CON IVP, 04/01/2016, 14:02. [facility], CT, CT ABD PELVIS WO CON, 03/13/2016, 21:38. [facility], CT, CT ABD PELVIS WO CON, 01/19/2016, 22:42. FINDINGS: Preliminary interpretation rendered by [facility]. Image quality: Metallic streak artifact from epigastric and cholecystectomy surgical clips, as well a s left hip arthroplasty hardware, obscure adjacent bony and/or soft tissue structures. ABDOMEN: Lung bases: Lung bases are clear. Heart size is normal. Large hiatal hernia is again noted. Solid organs: Liver and spleen are normal in size. Gallbladder is surgically absent. Pancreas is n ormal in contours. No adrenal nodules. Kidneys are normal in size, with mild bilateral hydronephros is. No kidney stones. Peritoneum and bowel: There is recurrent severe dilation of the stomach, as well as proximal and mid portions of the duodenum. More distal small bowel loops demonstrate normal wall thickness and calibe r. There is sigmoid colon diverticulosis. No free fluid or air. Nodes and vessels: No retroperitoneal or mesenteric adenopathy by size criteria. Aorta and inferior vena cava are normal in caliber, with mild aortoiliac atherosclerosis. Miscellaneous: No ventral hernias. PELVIS: Genitourinary: Bladder wall thickness is normal. The uterus is not well seen, and may be surgically absent or simply obscured by metallic streak artifact. Postmenopausal ovaries are also not well seen. Miscellaneous: No inguinal hernias or adenopathy. Bones: No suspicious bony lesions. No vertebral body compression fractures. Patient is status post left hip hemiarthroplasty as before. IMPRESSION: 1. Findings of recurrent high grade bowel obstruction, with transition point involving the third port ion of the duodenum. 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 No current findings to suggest bowel isc hemia. 2. Sigmoid colon diverticulosis. 3. Large retrocardiac hiatal hernia. 4. Mild bilateral hydronephrosis appears new since February 2016, and may reflect vesicoureteral reflu x. Dictated by: Julio Broderick M.D. on 06/07/2016 at 8:01 Approved by: Julio Broderick M.D. on 06/07/2016 at 8:16
[2016-06-07] MEDS ORDERED: Furosemide 10 mg/mL 2 mL Inj IVPUSH SCH (08:30)
--- NOTE | 2016-06-07 09:02 | NUR ---
Social Work- Initial Assessment: Data & Assessment: See Initial Assessment. EMR reviewed. Patient is a 85 y/o female that admitted on 06/07 SBO and Mid-gut Malrotation per H&P. Referral Specialist met with patient at bedside to discuss discharge planning, SW role explained and initial assessment complete. Patient confirmed that her PCP is Kin Hogue and insurance is Medicare and [employer]. Patient NOK is Jevon Yang [phone]. Patient stated that her DPOA is Connor Nathan. A copy of patient's Advance Directive/ DPOA is on file. Patient has no VA or LTC benefits. Patient re-admit score is 5 high risk. Patient is a resident at [facility] where she is independent at baseline. Patient does drive and uses a walker at baseline. Patient has been to [facility] in the past and has had [facility] in the past. Patient does not have a home health preference if it is needed in the past. Patient's discharge needs are currently undetermined at this time. SW will continue to follow and assist patient throughout stay. Plan: Patient will likely discharge to [facility]. SW will continue to follow patient to rule out HH. Michelle Del Valle LMSW, ABBIE Addendum: 06/07/16 at 0914 by MICHELLE DEL VALLE Amended: Links added.
--- NOTE | 2016-06-07 10:09 | CONS ---
[address] [address] CONSULTATION REPORT PATIENT: EDITH CALDERON : 1930 MR#: [id number] ADMIT: 06/07/2016 JOB ID: [id number] CORRECTED REPORT: DATE: 06/07/2016 REASON FOR CONSULTATION: The patient is seen after recent hospitalization for recurrent bowel obstruction. HISTORY OF PRESENT ILLNESS: The patient is an 85-year-old female, very familiar to me. I have been following her for quite some time for midgut malrotation with associated episodes of intestinal obstruction. When I 1st met her in the fall of last year we had agreed on nonoperative management. However, due to recurrent symptoms I then changed my recommendation to one of a surgical intervention. She at one point was scheduled for surgery, but a day or two prior called and canceled the operation. I have been following as an outpatient and overall she has been doing well with a slight improvement in her nutrition. However, yesterday morning she tells me, she started feeling like she was having some obstructive symptoms again. In spite of these she went to Easter dinner with her daughter and ate too much resulting in full blown obstructive symptoms. She came into the hospital yesterday evening. CT scan was obtained, which I personally reviewed. This again shows a dilated stomach and proximal duodenum. An NG tube has been placed with improvement in her symptoms. She was tachycardic upon presentation with heart rate in the low 100s overnight. However she is hemodynamically normal this morning. OBJECTIVE: This morning blood pressure is 148/67, heart rate is 90 beats per minute. Her last temperature was 37. She has been satting 95% on room air. In general, she appears frail but in no acute distress. Cardiovascular is she has a regular rate and rhythm. No appreciated murmurs, rubs, gallops. Pulmonary: Lungs clear to auscultation bilaterally. Her abdomen is soft, nontender, nondistended. Her NG tube is in place. I interrogated this and it feels like the stomach is fully decompressed. She had 400 of emesis recorded overnight. The NG tube had about 400 in the canister. LABORATORY STUDIES: Her white blood cell count was normal upon admission and remains normal this morning at 8.7. Her hematocrit has dropped from 29.8 to 27.6, most likely hemodilutional. Platelet count has also dropped from 385 to 291. Her creatinine is 1.43. Her lipase is mildly elevated at 202; it was 485 upon admission. Her albumin was 3.8 yesterday evening. IMAGING: CT scan is personally reviewed and consistent with duodenal obstruction most likely from [place]'s bands from malrotation. ASSESSMENT AND PLAN: The patient told me that she had been hoping to avoid surgery. However, she is now ready to proceed. I discussed timing, and she would like this done as soon as possible. I have tentatively scheduled for surgery tomorrow. I will attempt a laparoscopic takedown of presumed Manuel's bands. There is significant possibility of need to convert to open given her multiple abdominal procedures. I will return either later today or tomorrow morning to concern her. The NG tube should remain in place until surgery. Corrected by GS 06/18/16 at 7:48am Report type.
--- NOTE | 2016-06-07 15:22 | NUR ---
Wound Care Patient seen for evaluation of venous stasis wounds to bilateral legs. Patient is well-known to outpatient wound clinic due to chronic lower extremity edema and wounds. Patient admitted to hospital for SBO this morning. Has 3 layer compression dressing intact to bilateral LEs. Patient reports last changed on 06/03/16. Removed dressings to reveal one small open area on right lateral leg measuring 0.3cm L x 0.3cm W x <0.1cm D. Wound bed 100% red with surrounding epithelialization noted. Multiple other pin-point sized openings with minimal weeping. Wound with moderate amount of yellow drainage, with color reflective of being dressed with Iodoflex at last dressing change. Left leg with 10 small open areas covering total area of 8.4cm L x 9cm W x 0.2cm Deepest. All 100% sough. Minimal slough removed with mechanical debridement with gauze pad and saline. Wounds with moderate yellow drainage noted, color reflective of Iodoflex used at last dressing change. No odor to either leg. All wounds present on admission. Cleaned legs with soap and water, rinsed with plain water. Applied Vaseline to legs. Cleansed wound beds with saline. Applied Iodoflex to open areas on left leg. Covered both legs with ABD x 2 and secured with 3 layer compression dressing. Patient tolerates well with no complaints during or after treatment. Recommend wound care continue with compression dressing changes every 48 to 72 hours as needed. Patient reports scheduled for abdominal surgery tomorrow and will be NPO for the rest of the day.
[2016-06-07] MEDS ORDERED: fentaNYL-PF 50 mCg/mL 2 mL Inj IVPUSH ONE (23:35)
[2016-06-08] VITALS (12 sets, daily range): BP systolic 145–193; BP diastolic 50–84; PULSE 81–102; RESP 14–22; O2SAT 92–100
[2016-06-08] MEDS: Sodium Chloride LOK Flush 10 mL Syringe IVFLUSH SCH ×3 (00:30→16:30)
[2016-06-08] MEDS: 0.9% Sodium Chloride 1,000 ML IV SCH ×3 (04:11→17:28)
--- NOTE | 2016-06-08 05:08 | NUR ---
Restless Leg Pt complained of restless leg at 2200 06/07/16. Pts regular medication was held. MD hill. ordered fentanyl with good relief. Pt was able to rest comfortably for several hours and is now awake but symptoms are still manageable.
[2016-06-08 05:42] LABS: Mean Corpuscular Hemoglobin 25.3 pg (27.0-35.0); Mean Corpuscular Volume 82.7 fL (81-100)
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
[2016-06-08] MEDS ORDERED: Ciprofloxacin Inj 400 MG in IV Premix 1 EACH IV SCH (08:30)
[2016-06-08] MEDS: Pantoprazole 4 mg/mL 10 mL Inj IVPUSH SCH (11:01)
[2016-06-08] MEDS: D5W IV SCH ×2 (11:55→21:07)
[2016-06-08] MEDS: CIPROFLOXACIN 200 MG/100 ML IV SCH ×2 (11:55→21:07)
--- NOTE | 2016-06-08 12:15 | NUR ---
To OR Pt leaves to OR. IV right FA in use with Cipro infusing. NG clamped to itself. Pt ambulated SBA - 1 assist to gurney to leave. Bilateral LE wrapped C/D/I.
[2016-06-08] MEDS ORDERED: Rocuronium 10 mg/mL 5 mL Inj ONE (13:08)
[2016-06-08] MEDS ORDERED: Propofol 10,000 mCg/mL 20 mL Inj ONE (13:08)
[2016-06-08] MEDS ORDERED: Succinylcholine Chloride 20 mg/mL 5 mL Inj ONE (13:08)
[2016-06-08] MEDS ORDERED: Dexamethasone 4 mg/mL Inj ONE (13:08)
[2016-06-08] MEDS ORDERED: Glycopyrrolate 0.2 MG/ML 1mL Inj ONE (13:08)
[2016-06-08] MEDS ORDERED: Neostigmine 1 mg/mL 10 mL Inj ONE (13:08)
[2016-06-08] MEDS ORDERED: fentaNYL-PF 50 mCg/mL 2 mL Inj ONE (13:08)
[2016-06-08] MEDS ORDERED: Lactated Ringer's 1,000 ML IV SCH (13:27)
[2016-06-08] MEDS ORDERED: Lactated Ringer's 500 ML IV PRN (13:27)
[2016-06-08] MEDS ORDERED: Bupivacaine-MPF 0.25%/EPI 30 mL Inj INJ ONE (13:29)
[2016-06-08] MEDS ORDERED: Lactated Ringer's 1,000 ML IV ONE (13:30)
[2016-06-08] MEDS ORDERED: Dexamethasone 4 mg/mL Inj IVPUSH PRN (13:30)
[2016-06-08] MEDS ORDERED: EPHEDrine Sulfate 50 mg/mL Inj IVPUSH PRN (13:30)
[2016-06-08] MEDS ORDERED: HYDROmorphone 1 mg/mL Inj IVPUSH PRN (13:30)
[2016-06-08] MEDS ORDERED: Phenylephrine 10,000 mCg/mL Inj IVPUSH PRN (13:30)
[2016-06-08] MEDS ORDERED: Ondansetron 2 mg/mL 2 mL Inj IVPUSH PRN (13:30)
[2016-06-08] MEDS ORDERED: fentaNYL-PF 50 mCg/mL 2 mL Inj IVPUSH PRN (13:30)
[2016-06-08] MEDS ORDERED: Atropine 0.4 mg/mL Inj IVPUSH PRN (13:30)
[2016-06-08] MEDS ORDERED: MetoCLOpramide 5 mg/mL 2 mL Inj IVPUSH PRN (13:30)
[2016-06-08] MEDS ORDERED: Labetalol 5 mg/mL 4 mL Inj IV PRN (13:30)
--- NOTE | 2016-06-08 15:52 | PCM.ANEP1 ---
Post Anesthesia Phase 1 PACU Phase 1 Assessment Vital Signs Vital Signs Date Time Temp Pulse Resp B/P Pulse Ox O2 Delivery O2 Flow Rate FiO2 06/08/16 15:45 36.2 97 21 152/63 100 Simple Mask 8 06/08/16 09:22 36.4 100 18 187/84 95 Room Air Anesthetic Administered: GA Level of Alertness: Sleepy, easy to arouse HORN's with Equal Strength: Yes Pain: No Pain Scale Score: 7 Nausea or Vomiting: No Cardiovascular Function and Hy: Yes Oxygen Delivery: Simple Mask Lungs: Clear to Auscultation, Normal Air Movement Complications: No Niocle Francis MD Jun 08, 2016 15:52
--- NOTE | 2016-06-08 16:52 | PCM.PNMED ---
Subjective Date of Service Jun 08, 2016 Subjective Patient was seen and examined today at bedside. The patient was very lethargic but arousable. No acute events overnight Exam Vital Signs Vital Sign - Last Date Time Temp Pulse Resp B/P Pulse Ox O2 Delivery O2 Flow Rate FiO2 06/08/16 16:00 36.2 87 20 167/59 100 Simple Mask 8 Intake and Output 06/07/16 06/07/16 06/08/16 Cumulative From/Thru 15:00 23:00 07:00 06/06/16 23:02 - 06/08/16 06:24 Intake Total 0 ml 1076 ml 814 ml 3123 ml Output Total 0 ml 1500 ml 800 ml 3200 ml Balance 0 ml -424 ml 14 ml -77 ml Intake Oral 0 ml 0 ml 0 ml 0 ml IV Total 1076 ml 814 ml 3123 ml Output Urine Total 0 ml 1200 ml 450 ml 2150 ml Gastric Drainage Total 300 ml 350 ml 650 ml Emesis 400 ml # Voids 2 3 # Bowel Movements 0 0 0 Exam Physical Exam: GEN: Patient was lethargic, but able to respond appropriately to questions HEENT: Pupils equal round and reactive to light, extraocular eye muscles intact , Neck soft supple, trachea midline, nomocephalic/atraumatic, NG tube in place CV: +S1/S2, regular rate and rhythm, no murmurs auscultated Respiratory: CTAB, no wheezes, rales, rhonchi GI: +bowel sounds x4, soft, compressible, nontender to palpation EXT: Patient has chronic bilateral lower extremity edema currently wrapped Neuro: Cranial nerves II-XII grossly intact Psych: mood and affect were lethargic IVs and Medications Medications Reviewed: Medications were reviewed in detail Lab and Diagnostics Result Diagram: 06/08/16 0510 06/08/16 0510 X-Rays, CTs and MRIs CT abd/pelv with reading pending. 12-lead ECG Sinus rhythm with rate of 98, borderline MS elongation at 207 Assessment & Plan Pleasant 85yo woman with history of SBO, cholecystectomy, gut malrotation ( currently being working up for surgery as outpatient) presented to our ED via EMS with 3 hours of increasing abdominal pain and vomiting. She has a complex medical history. 1. Abdominal pain with Nausea and vomiting likely secondary to SBO, awaiting read of CT of abd/pelv by radiology -Surgery will see pt in the morning -NPO -nasogastric tube to be reattempted after one failure. -NS 100ml/h IV -Ondansetron IV PRN 2. GI bleed chronic with chronic Anemia, perhaps secondary to report chronic gut malrotation, -consider transfusion of PRBCs if Hgb <7 3. Hypertension, -patient is NPO, holding home medications for now -last BP was 176/74, consider starting labetalol is pt becomes symptomatic 4. Chronic kidney disease stage III, Cr is 1.4 with baseline of hospital labs in the last year averaging below 1.2 -hydrate, avoid contrast dyes -hold diuretics awaiting morning labs to assess kidney function 5. Chronic lower extremity lymphedema with non-pressure ulcers -Consult wound care, she is already followed as an outpatient -Hold oral diuretics and start furosemide 20mg IV daily and spironolactone 75mg IV daily if kidney function has improved in the morning. 6. Hypothyroidism, holding home medication 7. History of restless leg syndrome, holding home medication. 8. Obstructive sleep apnea, discuss with patient, does she have home CPAP? 9. Gastroesophageal reflux disease. -Pantoprazole 40mg IV daily 10. Anxiety with history of chronic use of Lorazepam -Lorazepam 1mg IV q4h PRN 11. Pain,continue Fentanyl 50mcg IV q15m PRN PRN medications for constipation are available to patient. Disposition: Patient will most likely go to surgery later today. Will follow- up with surgery for further recommendations status post procedure. GI Prophylaxis: Proton Pump Inhibitor VTE Mechanical Devices: Intermittant Pneumatic CD Resuscitation Status: DNR/DNI:Do Not Resuscitate/Intubate Limited Interventions: Medications and IV Fluid Helga Freedman DO Jun 08, 2016 16:52
--- NOTE | 2016-06-08 17:10 | NUR ---
Back from OR Pt returns from OR. Mcintosh patent and draining to gravity. NG remains and hooked up to Low cont suction. Pt nods head to answer questions but has not verbalized anything at this time. Bilateral LE dressings remain C/D/I. Right FA IV in use. Denies pain at this time. No S/SX of pain, CP, Nausea. 2L NC 96%. Lap sites: 1 right lateral, 1 upper left lateral, 1 lower left lateral, 1 medial; all covered with gauze and Bioclusive dressings C/D/I with no drainage. Care continues.
--- NOTE | 2016-06-08 18:39 | NUR ---
NG Pt retuned from PACU with NG at 50CM. Appears to be a fresh new NG. Green output continues. Low cont suction. Denies nausea. Care continues Restlessness continues.
[2016-06-08] MEDS: fentaNYL-PF 50 mCg/mL 2 mL Inj IVPUSH PRN (20:25)
--- NOTE | 2016-06-08 20:39 | OP ---
[address] [address] OPERATIVE REPORT PATIENT: EDITH CALDERON : 1930 MR#: [id number] ADMIT: 06/07/2016 JOB ID: [id number] DATE OF SURGERY: 06/08/2016 ANESTHESIA: General. PREOPERATIVE DIAGNOSIS(ES): Intestinal malrotation with recurrent duodenal obstruction. POSTOPERATIVE DIAGNOSIS(ES): Intestinal malrotation with recurrent duodenal obstruction. OPERATIVE PROCEDURE: Laparoscopic Manuel's procedure. SURGEON: Dr. Dwayne Raines. DAMAGE ADJUSTER: Stephanie Cuba MD and Elizabeth Patino PA-C (both assistants were required for safe and timely completion of the case). COMPLICATIONS: None. ESTIMATED BLOOD LOSS: Minimal. CONDITION: Satisfactory. SPECIMEN: None. FINDINGS: The patient did indeed have malrotation with a right-sided duodenum and small bowel. However, her right colon was on the right and had normal congenital attachments. 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 These were taken down. The right colon was also partially mobilized. INDICATIONS/SIGNIFICANT HISTORY: The patient is an 85-year-old female who presented around October with what was initially thought to be a small bowel obstruction. However, subsequent evaluation suggested that she had obstruction of her duodenum. She underwent a barium swallow at that time which was suggestive of malrotation with duodenal obstruction around the third portion. At that point, given this was her first episode and she is quite elderly, we agreed to nonoperative management. She did fine but then bounced back with recurrent obstructions a number of times. I advised surgery and she was even scheduled a few months ago, but then in the last minute changed her mind. However, a few days ago, she was readmitted with recurrent episodes of duodenal obstruction. She therefore consented to undergo a laparoscopic Eufaula's procedure. OPERATIVE TECHNIQUE: The patient was taken to the operating room and placed in supine position. General anesthesia was administered. The abdomen was prepped and draped in standard surgical fashion. A procedural pause performed. Entry was gained to the abdomen through an infraumbilical incision using a 5 mm Optiview trocar. Pneumoperitoneum was achieved without complication. Local anesthetic was injected, followed by insertion of 5 mm ports in the right lower quadrant, left lower quadrant and eventually left mid abdomen. She had a number of adhesions to the midline from her prior operations. These were taken down. I then began to inspect the abdominal contents. Initially, it was quite disorientating. Clearly, there was no small bowel on the left side of her abdomen. However, she still had a cecum in the normal position with normal ascending, transverse and descending colons. In the midline, her aorta was immediately visible. There was a tight band from the aorta over to the right side which I took down using the energy device. That kind of freed up and allowed me to enter a space going under the superior mesenteric artery where I encountered the small bowel. I was able to locate the duodenum and there were a number of bands from both the aorta and the inferior vena cava that seemed to be crossing over this. These were taken down. I then also began to reflect the right colon, taking down the white line of Toldt so that I could approach the duodenum from the other side. I was able to follow that back up to the stomach and confirm that it was indeed the duodenum. Looking at the prior barium swallow, I was able to see the area where the duodenum was kinked and identified that and it indeed was where the majority of the bands were. After getting those fully taken down, I debated whether or not to completely mobilize the right colon to put it on the left side. My primary concern was that I may completely free up her entire contents predisposing her to mid gut volvulus. I therefore elected not to further mobilize the right colon. The lateral ports were removed under direct visualization followed by release of pneumoperitoneum and removal of the remaining port. Skin was closed using 4-0 Monocryl. The entire procedure was well tolerated without complication.
[2016-06-09 00:19] VITALS: BP 160/73; PULSE 98; RESP 20; O2SAT 94
[2016-06-09] MEDS: Sodium Chloride LOK Flush 10 mL Syringe IVFLUSH SCH ×4 (00:30→23:34)
[2016-06-09] MEDS: fentaNYL-PF 50 mCg/mL 2 mL Inj IVPUSH PRN ×2 (01:57→09:25)
[2016-06-09 04:50] VITALS: BP 161/61; PULSE 105; RESP 24; O2SAT 95
[2016-06-09] MEDS: 0.9% Sodium Chloride 1,000 ML IV SCH ×2 (06:41→19:35)
--- NOTE | 2016-06-09 06:45 | NUR ---
NG/Catheter Pt very restless all shift, was given in report this is baseline. She is i2vflal/positioning but she moves side ways in bed and gets her clothing tangled. She was pulling at NG tube early in shift but did not get out completely. NG is on continuous suction. Pt was also pulling at catheter early in shift and broke the hold down strap. Replaced and repositioned catheter, ensuring it is intact. Pt did c/o abdominal pain x2 and restless legs x2, received fentanyl and ativan with + effects.
[2016-06-09 08:09] LABS: Mean Corpuscular Hemoglobin 25.8 pg (27.0-35.0); Mean Corpuscular Volume 81.2 fL (81-100)
[2016-06-09 09:05] VITALS: BP 184/76; PULSE 98; RESP 20; O2SAT 94
[2016-06-09] MEDS: Pantoprazole 4 mg/mL 10 mL Inj IVPUSH SCH (09:24)
[2016-06-09] MEDS: D5W IV SCH ×2 (09:24→23:16)
[2016-06-09] MEDS: CIPROFLOXACIN 200 MG/100 ML IV SCH ×2 (09:24→23:16)
--- NOTE | 2016-06-09 12:15 | NUR ---
NG and Mcintosh DC Wound care Per MD Olu SHAKIRA'd pts NG tube as well as her Mcintosh catheter. NG continues to have output dark green substance. Removed with no issues. Mcintosh pale yellow urine removed with no issues. Care continues Wounds care replaced dressings on bilateral LE, as well as placed Mepilex over buttock.
--- NOTE | 2016-06-09 12:58 | PROG NOTE ---
[address] [address] PROGRESS NOTE PATIENT: EDITH CALDERON : 1930 MR#: [id number] ADMIT: 06/07/2016 JOB ID: [id number] DATE: 06/09/2016 SUBJECTIVE: This patient is seen on postoperative day one from laparoscopic Manuel's procedure. The patient had a relatively uneventful night. This morning she appears a little sedate but comfortable. OBJECTIVE: She had a low-grade temperature this morning to 37.9. She had intermittent tachycardia but this morning had a heart rate of 98 beats per minute. Her blood pressure is high at 184/76, satting 94% on room air with respiratory rate 20 breaths per minute. In general, she appears somewhat sedate but she does arouse and respond. Her abdomen is soft, nondistended and nontender. Yesterday, her NG tube put out 625. She had an additional 100 out overnight. Over the last 6 hours, she has had about 200 out. LABORATORY STUDIES: White blood cell count has jumped from 8.2 to 15.3 this morning. Her hematocrit is stable at 27.7. Her creatinine is fine at 1.33. 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 Yesterday's procedure was relatively straightforward. She seems to be doing well. At this point, her NG tube can be removed as well as her Mcintosh catheter. I have taken the liberty of restarting her home medications. She can have sips of clears. I have also ordered Physical Therapy to get her up and mobilize her. My hope is that she will have a relatively quick and uncomplicated recovery. There is the potential for an ileus, although the small-bowel was not manipulated an awful lot.
[2016-06-09 13:12] VITALS: PULSE 99; RESP 20; O2SAT 95
--- NOTE | 2016-06-09 13:32 | NUR ---
KOBE signed. ALICIA Morel
[2016-06-09] MEDS: Acetaminophen 32.5 mg/mL 20 mL Liquid PO PRN (13:57)
--- NOTE | 2016-06-09 13:58 | PCM.PNMED ---
Subjective Date of Service Jun 09, 2016 Subjective Patient was seen and examined at bedside today. Patient denies any chest pain, shortness of breath, nausea, vomiting, diarrhea. Overnight events: None Exam Vital Signs Vital Sign - Last Date Time Temp Pulse Resp B/P Pulse Ox O2 Delivery O2 Flow Rate FiO2 06/09/16 13:12 99 20 95 Room Air 06/09/16 12:15 37.5 06/09/16 09:05 184/76 06/08/16 20:17 1.00 Intake and Output 06/08/16 06/08/16 06/09/16 Cumulative From/Thru 15:00 23:00 07:00 06/06/16 23:02 - 06/08/16 23:28 Intake Total 800 ml 475 ml 4398 ml Output Total 900 ml 1125 ml 5225 ml Balance -100 ml -650 ml -827 ml Intake Oral 0 ml 0 ml IV Total 800 ml 475 ml 4398 ml Output Urine Total 900 ml 850 ml 3900 ml Gastric Drainage Total 275 ml 925 ml Emesis 400 ml # Voids 3 # Bowel Movements 0 Exam Physical Exam: GEN: Patient was awake, alert, responding appropriately to questions HEENT: Pupils equal round and reactive to light, extraocular eye muscles intact , Neck soft supple, trachea midline, nomocephalic/atraumatic CV: +S1/S2, tachycardia, no murmurs auscultated Respiratory: CTAB, no wheezes, rales, rhonchi GI: +bowel sounds x4, soft, compressible, nontender to palpation EXT: Bilateral lower extremities Garry wrapped secondary to chronic lower extremity edema Neuro: Cranial nerves II-XII grossly intact Psych: mood and affect were appropriate IVs and Medications Medications Reviewed: Medications were reviewed in detail Lab and Diagnostics Result Diagram: 06/09/16 0743 06/09/16 0743 X-Rays, CTs and MRIs CT abd/pelv with reading pending. 12-lead ECG Sinus rhythm with rate of 98, borderline [place] elongation at 207 Assessment & Plan Pleasant 85yo woman with history of SBO, cholecystectomy, gut malrotation ( currently being working up for surgery as outpatient) presented to our ED via EMS with 3 hours of increasing abdominal pain and vomiting. She has a complex medical history. Abdominal pain with Nausea and vomiting likely secondary to SBO (status post JEFFREY's procedure on 06/08/2016) -Gen. surgery following -Restart clear liquids diet -Discontinue NG tube -NS 100ml/h IV -Ondansetron IV PRN -PTOT GI bleed chronic with chronic Anemia, perhaps secondary to report chronic gut malrotation (resolving) -consider transfusion of PRBCs if Hgb <7 Hypertension, -Restart home blood pressure medications Chronic kidney disease stage III, Cr baseline of hospital labs in the last year averaging below 1.2 -hydrate, avoid contrast dyes Chronic lower extremity lymphedema with non-pressure ulcers -Consult wound care, she is already followed as an outpatient -Hold oral diuretics and start furosemide 20mg IV daily and spironolactone 75mg IV daily if kidney function has improved in the morning. Hypothyroidism, -Restart home medications History of restless leg syndrome -Restart fentanyl and ropinirole Gastroesophageal reflux disease. -Pantoprazole 40mg IV daily Anxiety with history of chronic use of Lorazepam -Lorazepam 1mg IV q4h PRN Disposition: Patient is currently doing well status post surgical procedure laparoscopic [place]'s procedure. Patient's NG tube has been removed and the patient will be started on clear liquid diet and we will see how she tolerates this. Physical therapy will start to see the patient and get her up and moving. This case was discussed with Dr. Posey. GI Prophylaxis: Proton Pump Inhibitor VTE Mechanical Devices: Intermittant Pneumatic CD Resuscitation Status: DNR/DNI:Do Not Resuscitate/Intubate Limited Interventions: Medications and IV Fluid Helga Freedman DO Jun 09, 2016 13:58
--- NOTE | 2016-06-09 14:46 | NUR ---
Social Work-continued d/c planning: Data:EMR Reviewed. Pt is on day 2 of hospitalization for SBO per H&P. Pt is not medically stable anticipate 2 more days. SW met with pt at bedside, SW role explained. SW discussed HH with pt, Pt is unsure at this if she is interested in this. Pt may need PT evaluation prior to discharge. SW will continue to follow. Assessment:Pt who resides in independent living. Plan:Pt to discharge home when medically stable via POV. R/O HH services. SW will continue to follow. ALICIA Morel
[2016-06-09 15:29] VITALS: BP 184/80; PULSE 89; RESP 20; O2SAT 95
--- NOTE | 2016-06-09 17:24 | NUR ---
Fentanyl patch Placed midline low ABD per pt request. Pt states this is where she always puts her patches. Care continues
[2016-06-09] MEDS: Ondansetron 2 mg/mL 2 mL Inj IVPUSH PRN ×2 (17:48→23:34)
--- NOTE | 2016-06-09 18:00 | NUR ---
Wound Care Patient seen at bedside for dressing change bilateral lower leg wraps removed and legs cleaned with soap and water, redressed with iodoflex to open areas of left lower leg measuring 8.4cm L x 9cm W x 0.2cm, abd pads to absorb drainage and 3 layer compression wraps applied.. Patient somnolent during treatment. Stable stasis ulcers without sign of infection. Will recheck on this patient 06/11.
[2016-06-09 19:20] VITALS: BP 178/71; PULSE 81; RESP 18; O2SAT 96
[2016-06-10] MEDS: LORazepam 0.5 mg Tablet PO PRN (00:12)
[2016-06-10] MEDS: Ondansetron 2 mg/mL 2 mL Inj IVPUSH PRN ×2 (03:48→14:44)
--- NOTE | 2016-06-10 04:25 | NUR ---
Nausea Per MD order pt was allowed to have sips and chips starting yesterday. however she has not tolerated them this shift. she has had nausea and one episode of vomiting yellow bile. pt has been backed off the sips and chips and has agreed to rest her stomach for the rest of night. she denies any increase in abdominal pain. her fentanyl patch has been adequate pain control and she has not needed any medication for breakthrough pain. she was treated with zofran for nausea and is now resting comfortably. care continues.
[2016-06-10 06:05] VITALS: BP 200/75; PULSE 82; RESP 16; O2SAT 96
[2016-06-10 06:12] LABS: Mean Corpuscular Hemoglobin 25.3 pg (27.0-35.0); Mean Corpuscular Volume 80.8 fL (81-100)
[2016-06-10] MEDS: Verapamil SR 240 mg ER12 Tablet PO SCH (06:27)
--- NOTE | 2016-06-10 07:24 | NUR ---
HTN pt had a blood pressure of 200/75 this AM. she denies headache or any other symptoms. her home BP medications had been ordered to restart this AM. nurse gave them early. nurse will monitor and contact MD if they are not effective.
[2016-06-10 08:30] VITALS: PULSE 95; RESP 20; O2SAT 95
[2016-06-10] MEDS: Sodium Chloride LOK Flush 10 mL Syringe IVFLUSH SCH ×3 (08:30→23:59)
[2016-06-10] MEDS: Pantoprazole 4 mg/mL 10 mL Inj IVPUSH SCH (10:32)
[2016-06-10 10:47] VITALS: BP 169/64; PULSE 70
--- NOTE | 2016-06-10 10:55 | PROG NOTE ---
[address] [address] PROGRESS NOTE PATIENT: EDITH CALDERON : 1930 MR#: [id number] ADMIT: 06/07/2016 JOB ID: [id number] DATE: 06/10/2016 SUBJECTIVE: The patient is seen postoperative day two from her laparoscopic Manuel procedure for malrotation with duodenal obstruction due to [place] bands. Yesterday, her NG tube was pulled. She was started on sips of clears. However, last night, she had some emesis. She continued to have what she describes as mild nausea this morning. She had a low-grade temperature at 37.6 yesterday afternoon but has remained afebrile since. This morning her blood pressure was high up to 275. She was started on her blood pressure medications. She is much more alert than yesterday. She denies any significant abdominal pain. She denies any significant nausea. Her abdomen is soft and nondistended. Not significantly tender. LABORATORY STUDIES: Her white blood cell count is trending down from 15.3 yesterday to 12.1. Her hematocrit is up to 31.5 from 27.7. Her creatinine is down to 1.08. ASSESSMENT AND PLAN: This is an 85-year-old female with intestinal malrotation postoperative day two from laparoscopic Manuel procedure. Not that terribly surprising to me that she would have an ileus. I asked her if she would like an NG tube replacement and she is quite adamant she does not want it. She will just go really slow with liquids, get up and mobilize and hope for this ileus to resolve soon.
--- NOTE | 2016-06-10 11:22 | NUR ---
NUTRITION ASSESSMENT: ASSESS: Pt is an 85yo F admitted for SBO. She is POD for lap [place] procedure. Pt had NGT removed 06/09. Overnight she experienced some nausea/vomiting and has only been able to tolerate sips of CL. Pt has been NPOx3 days. PMHX: SBO, TIA, HTN, CKD stg 3, HLD, Pancreatitis, UTI, Dysphagia LABS: Reviewed. K 3.4, Cl 94, Android Ui Developer 1.08, Glu 132, Alb 3.0 MEDS: Reviewed. Lasix, zofran GI: 0 BM SKIN: Jadon 18, no major issues CURRENT WTS: 56kg, BMI 23.3kg/m2 DIET: NPOx3 days EST. NEEDS: Kcals: 1400-1680kcal/day (25-30kcal/kg) Pro: 55-70g/day (1.0-1.2g/kg) Fluids: ~1400ml/day (25ml/kg) NUTRITION DIAGNOSIS: 1.) Inadequate oral intake related to decreased ability to consume sufficient energy as evidenced by current NPO status NUTRITION INTERVENTION: 1.) Will continue to monitor NPO/ GI status. If pt continues to require bowel rest, recommend nutrition support be considered. Recommend start TPN at 120g Dex, 30g AA and 25g lipids to provide 778kcal and 30g pro. If tolerated, recommend slowly increase macronutrients to goal TPN of 240g Dex, 65g AA and 50g lipids to provide 1576kcal and 65g pro (100% estimated needs) 2.) Recommend advance diet when medically appropriate MONITOR / EVAL: NPO, GI, TPN?, wt, labs, POC, nutrition status. Will continue to monitor per high nutrition risk guidelines.
[2016-06-10] MEDS ORDERED: Potassium Chloride 20 mEq SR Tablet PO ONE (11:42)
[2016-06-10 12:15] VITALS: BP 175/73; PULSE 76; RESP 16; O2SAT 97
[2016-06-10] MEDS: Amoxicillin-Clav 500-125 mg Tablet PO SCH ×2 (14:44→21:51)
[2016-06-10] MEDS: 0.9% Sodium Chloride 1,000 ML IV SCH (17:10)
--- NOTE | 2016-06-10 19:49 | NUR ---
Activity Pt very sleepy during shift and will awaken to voice, but go back to sleep if not being spoken too. Per soaker pt was up most of the night. No narcotics given during this shift, but pt does have Fentanyl patch in place. New IV started this AM, but that put medications behind. Pt only tolerating sips of water at a time, but able to tolerate PO meds w/o vomiting. Zofran given once. Pt c/o pain 05/31, but declined Tylenol. Up to BSC 13x during shift, but declined to work with PT or ambulate more. Bed in low, jose r alarm on, call light in reach.
[2016-06-10 20:28] VITALS: BP 171/61; PULSE 74; RESP 16; O2SAT 98
--- NOTE | 2016-06-10 21:16 | PCM.PNMED ---
Subjective Date of Service Jun 10, 2016 Subjective Patient is postop day #2 britany band release. h She denies any significant abdominal pain. She denies any significant nausea. The appears that surgery has considered the possibility that she has an ileus as she exhibited nausea and vomiting yesterday. She opted not to get the NG tube and surgery offered it. Staff say that she has been getting up to go to the bathroom to urinate but otherwise is preferring to sleep. She denies overnight fevers and chills. States her pain is better than what it was before the procedure. Fentanyl patches noted on her abdomen Exam Vital Signs Vital Sign - Last Date Time Temp Pulse Resp B/P Pulse Ox O2 Delivery O2 Flow Rate FiO2 06/10/16 20:28 36.7 74 16 171/61 98 Room Air 06/08/16 20:17 1.00 Intake and Output 06/09/16 06/09/16 06/10/16 Cumulative From/Thru 15:00 23:00 07:00 06/06/16 23:02 - 06/10/16 06:18 Intake Total 955 ml 1046 ml 1000 ml 7399 ml Output Total 4350 ml 1700 ml 1400 ml 57016 ml Balance -3395 ml -654 ml -400 ml -5276 ml Intake Oral 0 ml 0 ml 300 ml 300 ml IV Total 955 ml 1046 ml 700 ml 7099 ml Output Urine Total 4250 ml 1700 ml 1400 ml 22304 ml Gastric Drainage Total 100 ml 1025 ml Emesis 400 ml # Voids 3 # Bowel Movements 0 0 0 0 Exam General: NAD, laying in bed, sleeping HEENT: NCAT, missing dentition Eyes: [place] conjunctivae. No ptosisL Neck: No masses, trachea midline, no thyromegaly. Negative for JVD Lungs: CTA with normal respiratory effort, no crackles or wheezes CV: RRR, no murmurs/rubs/gallops GI: Soft, flat, non-tender with no hepatosplenomegaly. Normal bowel sounds Skin: Laparoscopic incision sites look clean Skin: Warm and dry. Psych: A&O X3, with approprate affect IVs and Medications IV Fluids Normal saline 80 mL/h Medications Reviewed: Medications were reviewed in detail Lab and Diagnostics Result Diagram: 06/10/1625 06/10/16524 X-Rays, CTs and MRIs [facility] [place] [address] Patient Name: EDITH CALDERON MR#: [id number] Location: [facility] Ordering Phys: Odilon Richter MD Date of Service: 06/06/162321 PROCEDURE: CT ABDOMEN AND PELVIS WITHOUT CONTRAST ([id number]) INDICATIONS: 85 year-old female with mid abdominal pain and vomiting. TECHNIQUE: Intravenous contrast was not administered due to low GFR level. Noncontrast 5 mm thick sections acquired from the diaphragms to the symphysis. 5 mm coronal and sagittal reformats were then performed. For radiation dose reduction, the following was used: automated exposure control, adjustment of mA and/or kV according to patient size. COMPARISON: [facility], CT, CT ABD PELVIS W&WO CON IVP, 04/01/2016, 14:02. [facility], CT, CT ABD PELVIS WO CON, 03/13/2016, 21:38. [facility], CT, CT ABD PELVIS WO CON, 01/19/2016, 22:42. FINDINGS: Preliminary interpretation rendered by [facility]. Image quality: Metallic streak artifact from epigastric and cholecystectomy surgical clips, as well as left hip arthroplasty hardware, obscure adjacent bony and/or soft tissue structures. ABDOMEN: Lung bases: Lung bases are clear. Heart size is normal. Large hiatal hernia is again noted. Solid organs: Liver and spleen are normal in size. Gallbladder is surgically absent. Pancreas is normal in contours. No adrenal nodules. Kidneys are normal in size, with mild bilateral hydronephrosis. No kidney stones. Peritoneum and bowel: There is recurrent severe dilation of the stomach, as well as proximal and mid portions of the duodenum. More distal small bowel loops demonstrate normal wall thickness and caliber. There is sigmoid colon diverticulosis. No free fluid or air. Nodes and vessels: No retroperitoneal or mesenteric adenopathy by size criteria. Aorta and inferior vena cava are normal in caliber, with mild aortoiliac atherosclerosis. Miscellaneous: No ventral hernias. PELVIS: Genitourinary: Bladder wall thickness is normal. The uterus is not well seen, and may be surgically absent or simply obscured by metallic streak artifact. Postmenopausal ovaries are also not well seen. Miscellaneous: No inguinal hernias or adenopathy. Bones: No suspicious bony lesions. No vertebral body compression fractures. Patient is status post left hip hemiarthroplasty as before. IMPRESSION: 1. Findings of recurrent high grade bowel obstruction, with transition point involving the third portion of the duodenum. 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 No current findings to suggest bowel ischemia. 2. Sigmoid colon diverticulosis. 3. Large retrocardiac hiatal hernia. 4. Mild bilateral hydronephrosis appears new since February 2016, and may reflect vesicoureteral reflux. Dictated by: Julio Broderick M.D. on 06/07/2016 at 8:01 Approved by: Julio Broderick M.D. on 06/07/2016 at 8:16 12-lead ECG Sinus rhythm with rate of 98, borderline [place] elongation at 207 Assessment & Plan Pleasant 85yo woman with history of SBO, cholecystectomy, gut malrotation ( currently being working up for surgery as outpatient) presented to our ED via EMS with 3 hours of increasing abdominal pain and vomiting. She has a complex medical history. Abdominal pain with Nausea and vomiting likely secondary to SBO (status post BRITANY's procedure on 06/08/2016) -Gen. surgery following -Nothing by mouth diet -Discontinue NG tube -NS 70 mL per hour -Ondansetron IV PRN -PTOT GI bleed chronic with chronic Anemia, perhaps secondary to report chronic gut malrotation (resolving) -consider transfusion of PRBCs if Hgb <7 Hypertension, -Restart home blood pressure medications: Added hydrochlorothiazide 12.5 daily as she continues to be hypertensive on her home medications Chronic kidney disease stage III, Cr baseline of hospital labs in the last year averaging below 1.2 -hydrate, avoid contrast dyes Chronic lower extremity lymphedema with non-pressure ulcers -Consult wound care, she is already followed as an outpatient -furosemide 20mg IV daily Hypothyroidism, -Restart home medications History of restless leg syndrome -Restart fentanyl and ropinirole Gastroesophageal reflux disease. -Pantoprazole 40mg IV daily Anxiety with history of chronic use of Lorazepam -Lorazepam 1mg IV q4h PRN UTI, acute: Based on her cultures she is started on by mouth Augmentin. Discontinued Cipro as there is no documentation of why this was on board. Disposition: Patient is currently doing well status post surgical procedure laparoscopic [place]'s procedure. Patient's NG tube has been removed and the patient was started on clears but she did not tolerate it as currently she is nothing by mouth. Physical therapy will start to see the patient and get her up and moving. This case was discussed with Dr. Posey. Pain Evaluation: Adequate Pain Control GI Prophylaxis: Proton Pump Inhibitor VTE Mechanical Devices: Intermittant Pneumatic CD Resuscitation Status: DNR/DNI:Do Not Resuscitate/Intubate Limited Interventions: Medications and IV Fluid Clarisa Bullard DO Jun 10, 2016 21:16
[2016-06-11] MEDS: Heparin 5,000 Unit/mL Inj SUBQ SCH ×3 (00:12→17:43)
[2016-06-11] MEDS: LORazepam 0.5 mg Tablet PO PRN (01:51)
--- NOTE | 2016-06-11 03:02 | NUR ---
Activity Pt. has been up multiple times this shift to use the bathroom. Pt. is steady on her feet. Pt. denies any nausea at this time. However, pt. did have some insomnia tonight due to her frequent urination. Pt. is now sleeping. Will continue to monitor.
[2016-06-11 04:22] VITALS: BP 185/78; PULSE 75; RESP 18; O2SAT 97
[2016-06-11] MEDS: 0.9% Sodium Chloride 1,000 ML IV SCH ×3 (05:42→17:40)
[2016-06-11 06:41] LABS: Mean Corpuscular Hemoglobin 25.2 pg (27.0-35.0); Mean Corpuscular Volume 79.6 fL (81-100)
[2016-06-11] MEDS ORDERED: Potassium Chloride 20 mEq/15 mL 15mL Oral Soln PO ONE (08:10)
[2016-06-11 08:13] VITALS: PULSE 75; RESP 18; O2SAT 98
[2016-06-11] MEDS: Sodium Chloride LOK Flush 10 mL Syringe IVFLUSH SCH ×2 (08:30→16:30)
--- NOTE | 2016-06-11 10:21 | PROG NOTE ---
[address] [address] PROGRESS NOTE PATIENT: EDITH CALDERON : 1930 MR#: [id number] ADMIT: 06/07/2016 JOB ID: [id number] DATE: 06/11/2016 SUBJECTIVE: The patient is seen on postoperative day three from her laparoscopic Manuel procedure. She tells me she is feeling much better this morning. Her nausea has resolved. She is eager to eat some real food. OBJECTIVE: She has remained afebrile and relatively hemodynamically normal. This morning she is alert and oriented. She appears comfortable. Her abdomen is soft, nontender, nondistended. Her incision inspected and looked fine. Her white blood cell count has normalized at 9.8. Her hematocrit is up to 34.7. Her creatinine is fine at 1.12. ASSESSMENT AND PLAN: This is an 85-year-old woman with intestinal malrotation, status post laparoscopic [place] procedure. I have written the patient for a soft diet. I cautioned her to go slow. If she does well and tolerates that, I anticipate she could go home as early as tomorrow. I will plan on keeping her on a soft diet for the next week or two and then slowly advancing to more adventurous things. If she does go home, she can follow up with me in a couple of weeks.
--- NOTE | 2016-06-11 10:30 | NUR ---
KOBE Signed @ [address]
--- NOTE | 2016-06-11 10:57 | NUR ---
Gave access and faxed facesheet to [employer] per ENVIRONMENTAL COMPLIANCE MANAGER
[2016-06-11] MEDS: Pantoprazole 4 mg/mL 10 mL Inj IVPUSH SCH (10:58)
[2016-06-11] MEDS: Verapamil SR 240 mg ER12 Tablet PO SCH (10:59)
[2016-06-11] MEDS: Amoxicillin-Clav 500-125 mg Tablet PO SCH ×2 (10:59→17:38)
[2016-06-11 11:02] VITALS: BP 187/74; PULSE 71; RESP 18; O2SAT 97
[2016-06-11] MEDS: Ondansetron 2 mg/mL 2 mL Inj IVPUSH PRN (11:18)
[2016-06-11] MEDS: fentaNYL-PF 50 mCg/mL 2 mL Inj IVPUSH PRN (11:20)
--- NOTE | 2016-06-11 13:56 | NUR ---
NUTRITION FOLLOW-UP ASSESS: Pt is an 85yo F admitted for SBO. She is POD 3 for lap [place] procedure. Pt had NGT removed 06/09. She experienced some n/v 06/10 but this has since resolved. Her appetite has been improving and diet was able to be advanced to soft 06/11. PMHX: SBO, TIA, HTN, CKD stg 3, HLD, Pancreatitis, UTI, Dysphagia LABS: Reviewed. K 3.2, Cl 91, Wash Worker 1.12, Alb 3.0 MEDS: Reviewed. gray [place] GI: 0 BM SKIN: Jadon 18. Pt goes to outpt wound care for venous stasis wounds to bilateral legs. CURRENT WTS: 56kg, BMI 23.3kg/m2 DIET: soft, no PO recorded yet EST. NEEDS: Kcals: 1400-1680kcal/day (25-30kcal/kg) Pro: 55-70g/day (1.0-1.2g/kg) NUTRITION DIAGNOSIS: 1.) Inadequate oral intake related to decreased ability to consume sufficient energy as evidenced by current NPO status--IMPROVING NUTRITION INTERVENTION: 1.) Continue to slowly advance diet as tolerated 2.) Spoke w/pt regarding tips to gain wt. Pt was supposed to see oupt RD today regarding ways to gain wt. Pt resides at [facility] and pt reported that the food is not good. Pt is lactose intolerant and has a soy allergy but she has found a nutritional supplement that she tries to drink 12oz a day of. She keeps frozen meals in her freezer to eat when she doesn't like the meals. Discussed ways to increase kcals and pro with each bite. Pt does like cottage cheese and ice cream if she takes a lactaid pill so encouraged her to include these foods in meal. Discussed buying the 4% fat cottage cheese to increase kcal/pro intake. Reviewed other foods that are high kcal (butter, peanut butter, avocado..). 3.) Provided high kcal/pro nutrition therapy handout and high kcal/pro recipe book. Encouraged pt to show the recipe book to the biomedical equipment specialist where she is staying and see if they would be willing to make any of the foods for the pt. Encouraged pt to try to drink more of her supplemental drink MONITOR / EVAL: PO, GI, wt, labs, POC, nutrition status. Will continue to monitor per high nutrition risk guidelines.
[2016-06-11 17:30] VITALS: BP 127/62
--- NOTE | 2016-06-11 17:49 | NUR ---
Social Work: Continued Discharge Planning: SW received a call from [facility] and they are able to accept the patient when she is medically ready for discharge. SW will continue to follow and assist patient throughout stay. Michelle Matson LMSW, [facility] Addendum: 06/12/16 at 0859 by MICHELLE MATSON SS Data & Assessment: BRANT spoke with patient at bedside on 06/11/16 and choiced her for SNF, patient stated that she wanted to be referred to [facility], but requested that SW call her daughter and son-in-law and make sure they were in agreement. BRANT spoke with patient's son-in-law, Connor and he was in agreement with patient being referred to [facility]. SW will continiue to follow and assist patient throughout stay. Plan: Patient will most likely discharge to [facility] when she is medically ready. SW will continue to follow. Michelle Matson LMSW. [facility]
[2016-06-11 19:18] VITALS: BP 114/52; PULSE 64; RESP 20; O2SAT 99
--- NOTE | 2016-06-11 20:38 | PCM.PNMED ---
Subjective Date of Service Jun 11, 2016 Subjective The patient is seen and examined. She is much more alert and awake and moving with ease. States her pain is well controlled. She states adequate control of her blood pressure at home, which has been difficult to control during this visit. States that she is to be on spironolactone at one time does not know why she stopped taking it. She has never been on hydrochlorothiazide. Now she is on 25 mg daily. She wants to go to [facility] upon discharge. Exam Vital Signs Vital Sign - Last Date Time Temp Pulse Resp B/P Pulse Ox O2 Delivery O2 Flow Rate FiO2 06/11/16 04:22 36.5 75 18 185/78 97 Room Air 06/08/16 20:17 1.00 Intake and Output 06/10/16 06/10/16 06/11/16 Cumulative From/Thru 15:00 23:00 07:00 06/06/16 23:02 - 06/11/16 05:42 Intake Total 675 ml 889 ml 8963 ml Output Total 1650 ml 29437 ml Balance -975 ml 889 ml -5362 ml Intake Oral 60 ml 360 ml IV Total 615 ml 889 ml 8603 ml Output Urine Total 1650 ml 49209 ml Gastric Drainage Total 1025 ml Emesis 400 ml # Voids 9 12 # Bowel Movements 0 Exam General: NAD, laying in bed, working on puzzles HEENT: NCAT, missing dentition Eyes: [place] conjunctivae. No ptosis Neck: No masses, trachea midline, no thyromegaly, negative for JVD Lungs: CTA with normal respiratory effort, no crackles or wheezes CV: RRR, systolic murmur prominent at the pulmonic area GI: Soft, non-tender with no hepatosplenomegaly. Clean incision sites, normal bowel sounds MSK: no digital cyanosis Skin: Warm and dry. Extremities without edema IVs and Medications Medications Reviewed: Medications were reviewed in detail Lab and Diagnostics Laboratory Tests Test 06/11/16 05:57 White Blood Count 9.8th/mm3 (3.8-10.1) Red Blood Count 4.36mil/mm3 (3.90-5.20) Hemoglobin 11.0g/dL (12.0-15.6) Hematocrit 34.7% (35.0-46.0) Mean Corpuscular Volume 79.6fL (81-100) Mean Corpuscular Hemoglobin 25.2pg (27.0-35.0) Mean Corpuscular Hemoglobin Concent 31.7% (32.0-37.0) Red Cell Distribution Width 16.9% (12.3-15.4) Platelet Count 360bil/L (150-400) Sodium Level 134mEq/L (134-144) Potassium Level 3.2mEq/L (3.5-5.2) Chloride Level 91mEq/L (97-108) Carbon Dioxide Level 26mmol/L (18-29) Blood Urea Nitrogen 20mg/dL (8-27) Creatinine 1.12mg/dL (0.57-1.00) Estimat Glomerular Filtration Rate 66mL/min (>59) Glucose Level 90mg/dL (60-99) Calcium Level 9.1mg/dL (8.5-10.1) Magnesium Level 1.7mg/dL (1.6-2.6) Microbiology 06/07/16 Urine Culture - Final, Complete Escherichia Coli Result Diagram: 06/10/1652406/10/16524 X-Rays, CTs and MRIs [facility] Diagnostic Imaging Department [place], [place] [id number] Patient Name: EDITH CALDERON MR#: [id number] Location[place] [facility] [place] Ordering Phys: Odilon Richter MD Date of Service: 06/06/162321 PROCEDURE: CT ABDOMEN AND PELVIS WITHOUT CONTRAST ([id number]) INDICATIONS: 85 year-old female with mid abdominal pain and vomiting. TECHNIQUE: Intravenous contrast was not administered due to low GFR level. Noncontrast 5 mm thick sections acquired from the diaphragms to the symphysis. 5 mm coronal and sagittal reformats were then performed. For radiation dose reduction, the following was used: automated exposure control, adjustment of mA and/or kV according to patient size. COMPARISON: [facility], CT, CT ABD PELVIS W&WO CON IVP, 04/01/2016, 14:02. [facility], CT, CT ABD PELVIS WO CON, 03/13/2016, 21:38. [facility], CT, CT ABD PELVIS WO CON, 01/19/2016, 22:42. FINDINGS: Preliminary interpretation rendered by [facility]. Image quality: Metallic streak artifact from epigastric and cholecystectomy surgical clips, as well as left hip arthroplasty hardware, obscure adjacent bony and/or soft tissue structures. ABDOMEN: Lung bases: Lung bases are clear. Heart size is normal. Large hiatal hernia is again noted. Solid organs: Liver and spleen are normal in size. Gallbladder is surgically absent. Pancreas is normal in contours. No adrenal nodules. Kidneys are normal in size, with mild bilateral hydronephrosis. No kidney stones. Peritoneum and bowel: There is recurrent severe dilation of the stomach, as well as proximal and mid portions of the duodenum. More distal small bowel loops demonstrate normal wall thickness and caliber. There is sigmoid colon diverticulosis. No free fluid or air. Nodes and vessels: No retroperitoneal or mesenteric adenopathy by size criteria. Aorta and inferior vena cava are normal in caliber, with mild aortoiliac atherosclerosis. Miscellaneous: No ventral hernias. PELVIS: Genitourinary: Bladder wall thickness is normal. The uterus is not well seen, and may be surgically absent or simply obscured by metallic streak artifact. Postmenopausal ovaries are also not well seen. Miscellaneous: No inguinal hernias or adenopathy. Bones: No suspicious bony lesions. No vertebral body compression fractures. Patient is status post left hip hemiarthroplasty as before. IMPRESSION: 1. Findings of recurrent high grade bowel obstruction, with transition point involving the third portion of the duodenum. 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 No current findings to suggest bowel ischemia. 2. Sigmoid colon diverticulosis. 3. Large retrocardiac hiatal hernia. 4. Mild bilateral hydronephrosis appears new since February 2016, and may reflect vesicoureteral reflux. Dictated by: Julio Broderick M.D. on 06/07/2016 at 8:01 Approved by: Julio Broderick M.D. on 06/07/2016 at 8:16 12-lead ECG Sinus rhythm with rate of 98, borderline VT elongation at 207 Assessment & Plan Pleasant 85yo woman with history of SBO, cholecystectomy, gut malrotation ( currently being working up for surgery as outpatient) presented to our ED via EMS with 3 hours of increasing abdominal pain and vomiting. She has a complex medical history. Abdominal pain with Nausea and vomiting likely secondary to SBO (status post JEFFREY's procedure on 06/08/2016) Diet is advanced today to soft by general surgery -Discontinue NG tube -NS 50 mL per hour -Ondansetron IV PRN -PT/OT Postop Ileus -- declined NG tube, diet is advanced to soft diet. Doing well -- General surgery recommendations::They recommend that she continues with soft diet for 2 weeks prior to advancing to something more adventurous GI bleed chronic with chronic Anemia, perhaps secondary to report chronic gut malrotation (resolving) -consider transfusion of PRBCs if Hgb <7 -- Stable Hypertension, -Restart home blood pressure medications: Added hydrochlorothiazide 25 daily as she continues to be hypertensive on her home medications. She was normotensive at this visit Chronic kidney disease stage III, Cr baseline of hospital labs in the last year averaging below 1.2 -hydrate, avoid contrast dyes -- Stable Chronic lower extremity lymphedema with non-pressure ulcers -Consult wound care, she is already followed as an outpatient -furosemide 20mg by mouth daily Hypothyroidism, -Restarted home medications History of restless leg syndrome -Restarted fentanyl and ropinirole Gastroesophageal reflux disease. -Pantoprazole 20 mg by mouth Anxiety with history of chronic use of Lorazepam -Lorazepam by mouth PRN UTI, acute: Based on her cultures she is started on by mouth Augmentin. Discontinued Cipro as there is no documentation of why this was on board. Disposition: Patient is currently doing well status post surgical procedure laparoscopic Schuyler's procedure. Patient's NG tube has been removed and the patient was started on clears but she did not tolerate it as currently she is nothing by mouth. Physical therapy will start to see the patient and get her up and moving. Surgery cleared for discharge tomorrow. GI Prophylaxis: Proton Pump Inhibitor VTE Mechanical Devices: Intermittant Pneumatic CD Resuscitation Status: DNR/DNI:Do Not Resuscitate/Intubate Limited Interventions: Medications and IV Fluid Clarisa Bullard DO Jun 11, 2016 05:54
[2016-06-11 20:40] VITALS: PULSE 80; RESP 18; O2SAT 97
[2016-06-11] MEDS: Acetaminophen 32.5 mg/mL 20 mL Liquid PO PRN (20:50)
[2016-06-12] MEDS: Sodium Chloride LOK Flush 10 mL Syringe IVFLUSH SCH ×3 (00:30→18:01)
[2016-06-12] MEDS: Heparin 5,000 Unit/mL Inj SUBQ SCH ×3 (00:56→18:01)
--- NOTE | 2016-06-12 04:50 | NUR ---
Activity/Pain Pt up to BSC and ambulated around unit x3 using FWW. Pt has had 0 breakthrough pain, fentanyl patch in place to abdomen and is effective. Pt expressing desire to get to rehab and get home as soon as possible.
[2016-06-12 04:52] VITALS: BP 124/56; PULSE 56; RESP 18; O2SAT 94
[2016-06-12 06:24] LABS: Mean Corpuscular Hemoglobin 25.3 pg (27.0-35.0); Mean Corpuscular Volume 80.6 fL (81-100)
[2016-06-12] MEDS: Verapamil SR 240 mg ER12 Tablet PO SCH (08:52)
[2016-06-12] MEDS: Amoxicillin-Clav 500-125 mg Tablet PO SCH ×2 (08:52→18:00)
[2016-06-12] MEDS: Pantoprazole 20 mg ER24 Tablet PO SCH (08:52)
[2016-06-12] MEDS: 0.9% Sodium Chloride 1,000 ML IV SCH ×2 (09:00→18:03)
[2016-06-12] MEDS ORDERED: 0.9% NaCl + KCl 20 mEq/L 1,000 ML IV SCH (09:00)
[2016-06-12] MEDS ORDERED: Potassium Chloride 20 mEq SR Tablet PO ONE (09:00)
--- NOTE | 2016-06-12 11:21 | PROG NOTE ---
[address] [address] PROGRESS NOTE PATIENT: EDITH CALDERON : 1930 MR#: [id number] ADMIT: 06/07/2016 JOB ID: [id number] DATE: 06/12/2016 SUBJECTIVE: The patient is seen in followup. She underwent a laparoscopic Paul procedure by Dr. Dwayne Raines. She is doing very well. She has no nausea and vomiting and is tolerating oral feedings. DATE: PHYSICAL EXAMINATION: Alert, no distress. BMI 23, temperature 36.6, brachial blood pressure 124/56, pulse 56, respiratory rate 18, O2 sat 94%. Her abdomen is flat. Laparoscopic incisions healing well, no ecchymosis. LABORATORY RESULTS: From today white blood cell count 9.2, hematocrit is 29, platelet count 286,000. Sodium 131, potassium 3.2, creatinine 1.67, which is increased from 1.1 from yesterday. IMPRESSION: She is doing very well. PLAN: When her hypokalemia is improved and assuming that there is no deterioration in her creatinine, I would bet she will be able to go home tomorrow on diet as tolerated with follow up with Dr. Raines in 1-2 weeks.
--- NOTE | 2016-06-12 12:16 | NUR ---
Social Work-readiness for discharge: Data:EMR Reviewed. PT is on day 5 of hospitalization for SBO per H&P. Pt is not medically stable for discharge anticipate 1-2 more days. PT continues to recommend SNF. PT has been accepted at [facility] SNF when medically stable. Paperwork in the chart. SW will continue to follow. Assessment:Pt who would benefit from SNF. Plan:Pt to discharge to [facility] when medically stable. Paperwork in the chart. SW will continue to follow. ALICIA Morel
[2016-06-12] MEDS: fentaNYL-PF 50 mCg/mL 2 mL Inj IVPUSH PRN (13:00)
[2016-06-12 13:26] VITALS: PULSE 68; RESP 16; O2SAT 97
--- NOTE | 2016-06-12 13:26 | NUR ---
Activity/Pain Patient up today with SBA and FWW. States she feels like she is ready to go home, but MD feels tomorrow may be more appropriate. Abd pain controlled with Fentanyl patch and chronic Right shoulder arthritic pain treated with Kpad for comfort at this time.
[2016-06-12 14:24] VITALS: BP 116/53; PULSE 65; RESP 16; O2SAT 96
[2016-06-12 18:44] VITALS: PULSE 58; RESP 18; O2SAT 96
[2016-06-12] MEDS ORDERED: 0.9% Sodium Chloride 500 ML IV ONE (19:45)
[2016-06-12] MEDS: Acetaminophen 32.5 mg/mL 20 mL Liquid PO PRN (20:07)
[2016-06-12 20:19] LABS: Magnesium 1.7 mg/dL (1.6-2.6); Phosphorus 2.6 mg/dL (2.5-4.9)
[2016-06-12 20:35] VITALS: BP 105/61; PULSE 56; RESP 16; O2SAT 99
--- NOTE | 2016-06-12 20:57 | PCM.PNMED ---
Subjective Date of Service Jun 12, 2016 Subjective The patient states that she has had problems with hyponatremia in the past and her doctor Dr. Guerrero told her not to drink too much water. Her renal function has worsened a bit since yesterday, as we turned down the fluids. Hydrochlorothiazide is also introduced yesterday she still denies pain related to surgical site, say since she is taking pain medication for her shoulder. She thinks she will be able to go home tomorrow. She denies pain in her abdomen abdomen she is passing gas. Has not had a bowel movement yet denies nausea vomiting Exam Vital Signs Vital Sign - Last Date Time Temp Pulse Resp B/P Pulse Ox O2 Delivery O2 Flow Rate FiO2 06/12/16 14:24 36.3 65 16 116/53 96 Room Air 06/08/16 20:17 1.00 Intake and Output 06/11/16 06/11/16 06/12/16 Cumulative From/Thru 15:00 23:00 07:00 06/06/16 23:02 - 06/12/16 06:35 Intake Total 956 ml 1020 ml 75708 ml Output Total 490 ml 99062 ml Balance 956 ml 530 ml -4926 ml Intake Oral 411 ml 971 ml IV Total 956 ml 609 ml 65505 ml Output Urine Total 490 ml 78357 ml Gastric Drainage Total 1025 ml Emesis 400 ml # Voids 12 # Bowel Movements 0 0 Exam General: NAD, sitting up in chair knitting HEENT: NCAT Eyes: [place] conjunctivae. No ptosis Neck: No masses, trachea midline, no thyromegaly Lungs: CTA with normal respiratory effort, no crackles or wheezes CV: RRR, no murmurs/rubs/gallops, normal PMI GI: Soft, non-tender with no hepatosplenomegaly Skin: Warm and dry. Psych: A&O X3, with appropriate affectA Extremities : Both lower extremities are wrapped in compression dressings she states that she has some ulcers that are healing wound care is following Neuro no focal deficits IVs and Medications IV Fluids 100 mL per hour normal saline Medications Reviewed: Medications were reviewed in detail Lab and Diagnostics Result Diagram: 06/12/1652406/12/16524 X-Rays, CTs and MRIs [facility] Diagnostic [place] [address] Patient Name: EDITH CALDERON MR#: [id number] Location: [facility] Ordering Phys: Odilon Richter MD Date of Service: 06/06/162321 PROCEDURE: CT ABDOMEN AND PELVIS WITHOUT CONTRAST ([id number]) INDICATIONS: 85 year-old female with mid abdominal pain and vomiting. TECHNIQUE: Intravenous contrast was not administered due to low GFR level. Noncontrast 5 mm thick sections acquired from the diaphragms to the symphysis. 5 mm coronal and sagittal reformats were then performed. For radiation dose reduction, the following was used: automated exposure control, adjustment of mA and/or kV according to patient size. COMPARISON: [facility], CT, CT ABD PELVIS W&WO CON IVP, 04/01/2016, 14:02. [facility], CT, CT ABD PELVIS WO CON, 03/13/2016, 21:38. [facility], CT, CT ABD PELVIS WO CON, 01/19/2016, 22:42. FINDINGS: Preliminary interpretation rendered by [facility] Radiology. Image quality: Metallic streak artifact from epigastric and cholecystectomy surgical clips, as well as left hip arthroplasty hardware, obscure adjacent bony and/or soft tissue structures. ABDOMEN: Lung bases: Lung bases are clear. Heart size is normal. Large hiatal hernia is again noted. Solid organs: Liver and spleen are normal in size. Gallbladder is surgically absent. Pancreas is normal in contours. No adrenal nodules. Kidneys are normal in size, with mild bilateral hydronephrosis. No kidney stones. Peritoneum and bowel: There is recurrent severe dilation of the stomach, as well as proximal and mid portions of the duodenum. More distal small bowel loops demonstrate normal wall thickness and caliber. There is sigmoid colon diverticulosis. No free fluid or air. Nodes and vessels: No retroperitoneal or mesenteric adenopathy by size criteria. Aorta and inferior vena cava are normal in caliber, with mild aortoiliac atherosclerosis. Miscellaneous: No ventral hernias. PELVIS: Genitourinary: Bladder wall thickness is normal. The uterus is not well seen, and may be surgically absent or simply obscured by metallic streak artifact. Postmenopausal ovaries are also not well seen. Miscellaneous: No inguinal hernias or adenopathy. Bones: No suspicious bony lesions. No vertebral body compression fractures. Patient is status post left hip hemiarthroplasty as before. IMPRESSION: 1. Findings of recurrent high grade bowel obstruction, with transition point involving the third portion of the duodenum. 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 No current findings to suggest bowel ischemia. 2. Sigmoid colon diverticulosis. 3. Large retrocardiac hiatal hernia. 4. Mild bilateral hydronephrosis appears new since February 2016, and may reflect vesicoureteral reflux. Dictated by: Julio Broderick M.D. on 06/07/2016 at 8:01 Approved by: Julio Broderick M.D. on 06/07/2016 at 8:16 12-lead ECG Sinus rhythm with rate of 98, borderline MT elongation at 207 Assessment & Plan Pleasant 85yo woman with history of SBO, cholecystectomy, gut malrotation ( currently being working up for surgery as outpatient) presented to our ED via EMS with 3 hours of increasing abdominal pain and vomiting. She has a complex medical history. Abdominal pain with Nausea and vomiting likely secondary to SBO (status post JEFFREY's procedure on 06/08/2016) Diet is advanced today to soft by general surgery -Discontinue NG tube -NS 50 mL per hour -Ondansetron IV PRN -PT/OT Acute renal injury: Likely due to inadequate hydration versus medications - Follow up BMP ordered at 4 PM -- We will consider spironolactone if labs show worsened sodium levels and creatinine as she has tolerated this much better in the past. Spironolactone will also help with her potassium levels Postop Ileus -- declined NG tube, diet is advanced to soft diet. Doing well -- General surgery recommendations::They recommend that she continues with soft diet for 2 weeks prior to advancing to something more adventurous -- Resolved on 06/12 GI bleed chronic with chronic Anemia, perhaps secondary to report chronic gut malrotation (resolving) - consider transfusion of PRBCs if Hgb <7 -- Stable Hypertension, -Restart home blood pressure medications: Added hydrochlorothiazide 25 daily as she continues to be hypertensive on her home medications. She was normotensive at this visit on 06/11 -- In the light of patient's deteriorated renal function, we will hold hydrochlorothiazide and losartan for tomorrow a.m. plan to give hydralazine by mouth Chronic kidney disease stage III, Cr baseline of hospital labs in the last year averaging below 1.2 -Worsened today at 1.7 -- FE urea lab work is ordered -- Urinalysis -- Phos, uric acid levels -- Hold nephrotoxic medications Chronic lower extremity lymphedema with non-pressure ulcers -Consult wound care, she is already followed as an outpatient -furosemide 20mg by mouth daily: We will hold tomorrow a.m. Hypothyroidism, -Restarted home medications History of restless leg syndrome -Restarted fentanyl and ropinirole Gastroesophageal reflux disease. -Pantoprazole 20 mg by mouth Anxiety with history of chronic use of Lorazepam -Lorazepam by mouth PRN UTI, acute: Based on her cultures she is started on by mouth Augmentin. Discontinued Cipro as there is no documentation of why this was on board. Disposition: Patient is currently doing well status post surgical procedure laparoscopic Gambier's procedure. Patient's NG tube has been removed and the patient was started on clears but she did not tolerate it as currently she is nothing by mouth. Physical therapy will start to see the patient and get her up and moving. Surgery cleared for discharge Pain Evaluation: Adequate Pain Control GI Prophylaxis: Proton Pump Inhibitor VTE Mechanical Devices: Intermittant Pneumatic CD Resuscitation Status: DNR/DNI:Do Not Resuscitate/Intubate Limited Interventions: Medications and IV Fluid Clarisa Bullard DO Jun 12, 2016 15:47
[2016-06-12 21:14] LABS: APPEARANCE,URINE HAZY (CLEAR,HAZY); COLOR,URINE YELLOW (YELLOW); OCCULT BLOOD,URINE NEGATIVE (NEGATIVE); UROBILINOGEN,URINE NORMAL (NORMAL)
[2016-06-12 21:15] LABS: YEAST,URINE FEW (NONE SEEN)
[2016-06-13] MEDS: Sodium Chloride LOK Flush 10 mL Syringe IVFLUSH SCH ×3 (00:30→16:30)
[2016-06-13] MEDS: Heparin 5,000 Unit/mL Inj SUBQ SCH ×3 (00:57→16:37)
--- NOTE | 2016-06-13 04:52 | NUR ---
Activity Pt up 4 times this shift, ambulating halls with SBA, tolerated well. Up to BSC multiple times. Bolus of NS was given per MD orders and continuing NS at 100ml/hr due to Pt sodium levels low., Care continues
[2016-06-13] MEDS: 0.9% Sodium Chloride 1,000 ML IV SCH ×3 (05:00→17:37)
[2016-06-13 05:49] VITALS: BP 110/68; PULSE 59; RESP 18; O2SAT 98
[2016-06-13 06:54] LABS: Mean Corpuscular Hemoglobin 25.3 pg (27.0-35.0); Mean Corpuscular Volume 83.1 fL (81-100)
[2016-06-13] MEDS: Pantoprazole 20 mg ER24 Tablet PO SCH (07:42)
[2016-06-13] MEDS: Verapamil SR 240 mg ER12 Tablet PO SCH (07:55)
[2016-06-13] MEDS: Amoxicillin-Clav 500-125 mg Tablet PO SCH ×2 (07:56→17:27)
[2016-06-13] MEDS: HYDROcodone-APAP 5-325 mg Tablet PO PRN (07:56)
--- NOTE | 2016-06-13 13:15 | PROG NOTE ---
[address] [address] PROGRESS NOTE PATIENT: EDITH CALDERON : 1930 MR#: [id number] ADMIT: 06/07/2016 JOB ID: [id number] DATE: The patient is seen in followup. She feels better. She would like to go home today. She is eating regular food. Her abdomen is flat. Incision is healing well. Potassium is now up in normal range. IMPRESSION: Doing well. From my perspective, she could be discharged at any time, and I think the patient is expecting to be discharged today. She should follow up with Dr. Raines in a couple of weeks.
[2016-06-13 13:16] VITALS: BP 129/56; PULSE 60; RESP 16; O2SAT 96
--- NOTE | 2016-06-13 15:05 | CONS ---
[address] [address] CONSULTATION REPORT PATIENT: EDITH CALDERON : 1930 MR#: [id number] ADMIT: 06/07/2016 JOB ID: [id number] DATE OF SERVICE: 06/13/2016 REQUESTING PHYSICIAN: Dr. Bullard. REASON FOR CONSULTATION: Management of abnormal kidney function. CHIEF COMPLAINT: Abdominal pain. PRESENT ILLNESS: This is an 85-year-old lady with significant multiple past medical history including midgut malrotation, history of small bowel obstruction, hypertension, stage 3 chronic kidney disease, who presented to the hospital due to abdominal pain. The patient was evaluated by surgical team. She was found to have recurrent small bowel obstruction. She underwent laparoscopic Pendleton's procedure on June 08, 2016. The procedure was uneventful. Her initial serum creatinine was 1.40. The best serum creatinine in the hospital was 1.08. A repeat basic metabolic panel today showed a serum creatinine of 1.9 and BUN of 28. Of note, her blood pressure has been labile. After surgery, her blood pressure was elevated. The highest one recorded was 200/75. Over the past 24 hours, her blood pressure was on the low side. The lowest blood pressure recorded was 105/61. The patient did not receive any IV contrast over the past 24-48 hours. There was no NSAID given. The patient reports history of chronic kidney disease. She was evaluated by a local superintendent stevedoring, Dr. Geronimo, several years ago. She is not aware of the severity of chronic kidney disease. She stated that she was diagnosed with hypertension for at least 15 years. She has had chronic lower extremity swelling due to lymphedema. She has Garry wrap and she is followed up by internal corrosion specialist twice a week as outpatient. Her home blood pressure medications include: 1. Furosemide 20 mg once a day. 2. Losartan 100 mg once a day. 3. Verapamil extended released 240 mg once a day. 4. Spironolactone 25 mg once a day. The patient said that she has been on two diuretics for at least 10 years. She does not use NSAIDs. She is taking oxycodone and fentanyl patch for her arthritis. The patient received one dose of cefazolin prior to surgery. Currently, she is not on any IV antibiotic except Augmentin 500 mg PO twice a day. PAST MEDICAL HISTORY: 1. Chronic kidney, disease stage 3. 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 2. Longstanding hypertension. 3. CVA. 4. History of midgut malrotation with small bowel obstruction. 5. Hypothyroid. 6. Dyslipidemia. 7. Chronic lower extremity swelling due to lymphedema. 8. Diverticulosis. 9. Osteoporosis. 10. Depression. 11. Arthritis. 12. Vitamin D deficiency. 13. Hiatal hernia. 14. Ennis's esophagitis. 15. Postherpetic neuralgia. 16. History of heavy alcohol abuse. 17. Hip fracture. PAST SURGICAL HISTORY: 1. Status post left shoulder surgery. 2. Status post right total knee replacement. 3. Lumbar spine surgery. 4. Left hip replacement. 5. Cholecystectomy. 6. Status post hysterectomy. 7. Status post cataract surgery. 8. Status post hiatal hernia repair. FAMILY HISTORY: No kidney disease in the family. SOCIAL HISTORY: The patient has significant past history of heavy alcohol abuse. She quit drinking for 30 years. She denies current use of alcohol, tobacco, or illicit drugs. ALLERGIES: 1. NSAIDS. 2. PROTON PUMP INHIBITOR. 3. CEFAZOLIN. CEPHALEXIN. 4. DOXYCYCLINE. 5. GABAPENTIN. 6. DULOXETINE. 7. HYDROXYZINE. 8. LISINOPRIL. 9. PREDNISONE. 10. SERTRALINE. 11. VENLAFAXINE. REVIEW OF SYSTEMS: Fourteen-point review of system was performed. PHYSICAL EXAM: Vitals: Temperature 36.9, pulse 59, respiratory 18, blood pressure 110/68, O2 sat 98% on room air. General appearance: Awake, alert, oriented x3. No acute distress. thin, lying in bed comfortably. HEENT: Mild pallor. No jaundice. No JVD. No lymphadenopathy. No thyroid enlargement. Dry mucous membranes. Atraumatic. PERRLA. Heart: Regular rhythm. Normal S1, S2. No murmurs, rubs, or gallops. Lungs: Decreased breath sounds at bases. No wheezing. No rhonchi. Abdomen soft, hypoactive bowel sounds. Surgical scar is dry, clean and intact. Nontender, nondistended. Extremities: Positive for lower extremity edema under pressure wrapping. Laboratory: UA pH 6.0, specific gravity 1.010, RBCs 0-2, WBCs 0-5. Hyaline casts: None. Urine creatinine 46. Sodium 135, potassium 3.7, chloride 98, bicarb 25, BUN 28, creatinine 1.91. Calcium 8.6. Magnesium 1.6. Hemoglobin 9.3. WBC 8.2, platelets 313. CT abdomen and pelvis without contrast showed recurrent, high-grade bowel obstruction, large retrocardiac hiatal hernia, mild bilateral hydronephrosis. ASSESSMENT: 1. Acute kidney injury on chronic kidney disease. Etiology of the acute kidney injury could be due to ischemic ATN given her fluctuating blood pressure. Acute interstitial nephritis is possible but less likely. CT abdomen showed mild hydronephrosis. Currently, she is on oxycodone and she has been lying down. I am afraid she may have some degree of urinary retention. Will go ahead and check postvoid residual and will recommend to insert Mcintosh catheter if urine volume over 200. I will recommend to maintain blood pressure on the higher side with a systolic around 140-150. Continue only verapamil for now. Will add the 2nd blood pressure medication if her systolic blood pressure goal above 160. I will hold proton pump inhibitor for now and switch to Pepcid. Will check urine protein/creatinine ratio. Will check urine. eosinophils. Will order a kidney sonogram. 2. Recurrent small bowel obstruction, status post Pendleton's procedure. 3. Hypertension with hypertensive nephrosclerosis. 4. 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 5. Chronic lower extremity swelling due to lymphedema. 6. Hypothyroid. PLANS: 1. Will discontinue all the antihypertensive medications except verapamil. 2. Continue IV fluid, normal saline at 100 cc/hour. 3. Check urine protein/creatinine ratio. Check urine eosinophils. 4. Maintain blood pressure a little bit on the high side at the moment to have the improved renal perfusion. 5. Check postvoid residual and insert Mcintosh catheter accordingly. 6. Repeat CBC, renal panel in the morning. Will order anemia workup. Thank you for the consultation. We will monitor along with you. CHINO
[2016-06-13 15:06] VITALS: PULSE 65; RESP 16; O2SAT 98
--- NOTE | 2016-06-13 16:18 | NUR ---
Post void residual / Mcintosh cath Pt had post-void residual of 298 per bladder scan this p.m. Mcintosh catheter inserted at 1605 hrs per communication from urologist to place catheter if pv residual was over 200 mL. Pt tolerated procedure well. Mcintosh draining yellow urine to gravity. Care continues.
--- NOTE | 2016-06-13 17:21 | DRSVH ---
PROCEDURE: US RETROPERITONEAL SONOGRAM ([id number]) INDICATIONS: acute kidney injury TECHNIQUE: Real-time scanning was performed of the kidneys and bladder, with image documentation. COMPARISON: [facility], CT, CT ABD PELVIS WO CON, 06/07/2016, 0:44. FINDINGS: Kidneys: Kidneys are normal in size. Right kidney measures 8.3 cm long; left kidney measures 8.3 cm long. Right renal cortical thickness is 0.4 cm; left renal cortical thickness is 0.8 cm. Renal cor tical echotexture is normal. No hydronephrosis or nephrolithiasis. No suspicious solid mass lesions . Bladder: Urinary bladder completely decompressed by presence of Mcintosh catheter. Miscellaneous: No free pelvic fluid. IMPRESSION: 1. Bilateral renal atrophy with right greater than left renal cortical thinning. 2. No hydronephrosis. Dictated by: Tran Perdue MD, PhD on 06/13/2016 at 17:18 Approved by: Tran Perdue MD, PhD on 06/13/2016 at 17:19
[2016-06-13 19:53] VITALS: BP 114/60; PULSE 54; RESP 16; O2SAT 98
[2016-06-13 20:46] VITALS: PULSE 48; RESP 16; O2SAT 95
--- NOTE | 2016-06-13 21:22 | PCM.PNMED ---
Subjective Date of Service Jun 13, 2016 Subjective Patient is seen and examined.. She states her pain is well controlled. She is having bowel movements, she has no abdominal pain. Denies nausea vomiting. Denies urinary symptoms denies dyspnea. She states she is very appreciative of the renal consult Exam Vital Signs Vital Sign - Last Date Time Temp Pulse Resp B/P Pulse Ox O2 Delivery O2 Flow Rate FiO2 06/12/16 20:35 36.3 56 16 105/61 99 Room Air 06/08/16 20:17 1.00 Intake and Output 06/12/16 06/12/16 06/13/16 Cumulative From/Thru 15:00 23:00 07:00 06/06/16 23:02 - 06/12/16 19:52 Intake Total 1081 ml 42425 ml Output Total 950 ml 25046 ml Balance 131 ml -4795 ml Intake Oral 650 ml 1621 ml IV Total 431 ml 02000 ml Output Urine Total 950 ml 97282 ml Gastric Drainage Total 1025 ml Emesis 400 ml # Voids 12 # Bowel Movements 0 0 Exam General: NAD, sitting up in bed HEENT: NCAT Eyes: [place] conjunctivae. No ptosis Neck: No masses, trachea midline, no thyromegaly Lungs: CTA with normal respiratory effort, no crackles or wheezes CV: RRR, no murmurs/rubs/gallops, normal PMI GI: Soft, non-tender with no hepatosplenomegaly Skin: Warm and dry. Psych: A&O X3, with appropriate affectA Extremities : Both lower extremities are wrapped in compression dressings she states that she has some ulcers that are healing wound care is following Neuro no focal deficits IVs and Medications IV Fluids Normal saline 100 mL per hour Medications Reviewed: Medications were reviewed in detail Lab and Diagnostics Laboratory Tests Test 06/13/16 05:55 White Blood Count 8.2th/mm3 (3.8-10.1) Red Blood Count 3.67mil/mm3 (3.90-5.20) Hemoglobin 9.3g/dL (12.0-15.6) Hematocrit 30.5% (35.0-46.0) Mean Corpuscular Volume 83.1fL (81-100) Mean Corpuscular Hemoglobin 25.3pg (27.0-35.0) Mean Corpuscular Hemoglobin Concent 30.5% (32.0-37.0) Red Cell Distribution Width 17.1% (12.3-15.4) Platelet Count 313bil/L (150-400) Sodium Level 135mEq/L (134-144) Potassium Level 3.7mEq/L (3.5-5.2) Chloride Level 98mEq/L (97-108) Carbon Dioxide Level 25mmol/L (18-29) Blood Urea Nitrogen 28mg/dL (8-27) Creatinine 1.91mg/dL (0.57-1.00) Estimat Glomerular Filtration Rate 36mL/min (>59) Glucose Level 91mg/dL (60-99) Calcium Level 8.6mg/dL (8.5-10.1) Magnesium Level 1.6mg/dL (1.6-2.6) Microbiology 06/12/16 Urine Culture - Preliminary, Resulted No growth to date Result Diagram: 06/12/16 0525 06/12/16 1530 X-Rays, CTs and MRIs [facility] Diagnostic Imaging Department [place], [place] [id number] Patient Name: EDITH CALDERON MR#: [id number] Location: [facility] [place] Ordering Phys: Clarisa Bullard DO Date of Service: 06/13/16 0742 PROCEDURE: US RETROPERITONEAL SONOGRAM ([id number]) INDICATIONS: acute kidney injury TECHNIQUE: Real-time scanning was performed of the kidneys and bladder, with image documentation. COMPARISON: [facility], CT, CT ABD PELVIS WO CON, 06/07/2016, 0:44. FINDINGS: Kidneys: Kidneys are normal in size. Right kidney measures 8.3 cm long; left kidney measures 8.3 cm long. Right renal cortical thickness is 0.4 cm; left renal cortical thickness is 0.8 cm. Renal cortical echotexture is normal. No hydronephrosis or nephrolithiasis. No suspicious solid mass lesions. Bladder: Urinary bladder completely decompressed by presence of Mcintosh catheter. Miscellaneous: No free pelvic fluid. IMPRESSION: 1. Bilateral renal atrophy with right greater than left renal cortical thinning. 2. No hydronephrosis. Dictated by: Tran Perdue MD, PhD on 06/13/2016 at 17:18 Approved by: Tran Perdue MD, PhD on 06/13/2016 at 17:19 [facility] Diagnostic [place] [address] Patient Name: EDITH CALDERON MR#: [id number] Location: [facility] [place] Ordering Phys: Odilon Richter MD Date of Service: 06/06/16 2322 PROCEDURE: CT ABDOMEN AND PELVIS WITHOUT CONTRAST ([id number]) INDICATIONS: 85 year-old female with mid abdominal pain and vomiting. TECHNIQUE: Intravenous contrast was not administered due to low GFR level. Noncontrast 5 mm thick sections acquired from the diaphragms to the symphysis. 5 mm coronal and sagittal reformats were then performed. For radiation dose reduction, the following was used: automated exposure control, adjustment of mA and/or kV according to patient size. COMPARISON: [facility], CT, CT ABD PELVIS W&WO CON IVP, 04/01/2016, 14:02. [facility], CT, CT ABD PELVIS WO CON, 03/13/2016, 21:38. [facility], CT, CT ABD PELVIS WO CON, 01/19/2016, 22:42. FINDINGS: Preliminary interpretation rendered by [facility]. Image quality: Metallic streak artifact from epigastric and cholecystectomy surgical clips, as well as left hip arthroplasty hardware, obscure adjacent bony and/or soft tissue structures. ABDOMEN: Lung bases: Lung bases are clear. Heart size is normal. Large hiatal hernia is again noted. Solid organs: Liver and spleen are normal in size. Gallbladder is surgically absent. Pancreas is normal in contours. No adrenal nodules. Kidneys are normal in size, with mild bilateral hydronephrosis. No kidney stones. Peritoneum and bowel: There is recurrent severe dilation of the stomach, as well as proximal and mid portions of the duodenum. More distal small bowel loops demonstrate normal wall thickness and caliber. There is sigmoid colon diverticulosis. No free fluid or air. Nodes and vessels: No retroperitoneal or mesenteric adenopathy by size criteria. Aorta and inferior vena cava are normal in caliber, with mild aortoiliac atherosclerosis. Miscellaneous: No ventral hernias. PELVIS: Genitourinary: Bladder wall thickness is normal. The uterus is not well seen, and may be surgically absent or simply obscured by metallic streak artifact. Postmenopausal ovaries are also not well seen. Miscellaneous: No inguinal hernias or adenopathy. Bones: No suspicious bony lesions. No vertebral body compression fractures. Patient is status post left hip hemiarthroplasty as before. IMPRESSION: 1. Findings of recurrent high grade bowel obstruction, with transition point involving the third portion of the duodenum. 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 No current findings to suggest bowel ischemia. 2. Sigmoid colon diverticulosis. 3. Large retrocardiac hiatal hernia. 4. Mild bilateral hydronephrosis appears new since February 2016, and may reflect vesicoureteral reflux. Dictated by: Julio Broderick M.D. on 06/07/2016 at 8:01 Approved by: Julio Broderick M.D. on 06/07/2016 at 8:16 12-lead ECG Sinus rhythm with rate of 98, borderline [place] elongation at 207 Assessment & Plan Pleasant 85yo woman with history of SBO, cholecystectomy, gut malrotation ( currently being working up for surgery as outpatient) presented to our ED via EMS with 3 hours of increasing abdominal pain and vomiting. She has a complex medical history. Abdominal pain with Nausea and vomiting likely secondary to SBO (status post MANUEL's procedure on 06/08/2016) Diet is advanced today to soft by general surgery -Discontinue NG tube -NS 100 mL per hour -Ondansetron IV PRN -PT/OT Acute renal injury: Likely due to inadequate hydration versus medications - Follow up BMP ordered at 4 PM ---- FE urea lab work is ordered: Shows prerenal etiology -- Urinalysis -- Phos, uric acid levels: Within normal -- A retroperitoneal ultrasound is ordered: Shows concern for atrophic kidneys, negative for hydronephrosis -- Hold nephrotoxic medications: Dr. espinosa is agreeable to plan , she asks to hold all hypertensive medications except the verapamil. We appreciate the recommendations. Postop Ileus -- declined NG tube, diet is advanced to soft diet. Doing well -- General surgery recommendations::They recommend that she continues with soft diet for 2 weeks prior to advancing to something more adventurous -- Resolved on 06/12 GI bleed chronic with chronic Anemia, perhaps secondary to report chronic gut malrotation (resolving) - consider transfusion of PRBCs if Hgb <7 -- Stable Hypertension, -Restart home blood pressure medications: Added hydrochlorothiazide 25 daily as she continues to be hypertensive on her home medications. She was normotensive at this visit on 06/11 -- In the light of patient's deteriorated renal function, we will hold hydrochlorothiazide and losartan for tomorrow a.m. Chronic kidney disease stage III, Cr baseline of hospital labs in the last year averaging below 1.2 -Worsened today at 1.9 Chronic lower extremity lymphedema with non-pressure ulcers -Consult wound care, she is already followed as an outpatient -furosemide 20mg by mouth daily: This is currently held in the light of her kidney failure Hypothyroidism, -Restarted home medications History of restless leg syndrome -Restarted fentanyl and ropinirole Gastroesophageal reflux disease. -Pantoprazole 20 mg by mouth Anxiety with history of chronic use of Lorazepam -Lorazepam by mouth PRN UTI, acute: Based on her cultures she is started on by mouth Augmentin. Discontinued Cipro as there is no documentation of why this was on board. Disposition: Patient is currently doing well status post surgical procedure laparoscopic Manuel's procedure. Patient's NG tube has been removed and the patient was started on clears but she did not tolerate it as currently she is nothing by mouth. Physical therapy will start to see the patient and get her up and moving. Surgery cleared for discharge Pain Evaluation: Adequate Pain Control GI Prophylaxis: Proton Pump Inhibitor VTE Mechanical Devices: Intermittant Pneumatic CD Resuscitation Status: DNR/DNI:Do Not Resuscitate/Intubate Limited Interventions: Medications and IV Fluid Clarisa Bullard DO Jun 13, 2016 05:40
[2016-06-14] MEDS: Sodium Chloride LOK Flush 10 mL Syringe IVFLUSH SCH ×3 (00:30→16:18)
[2016-06-14] MEDS: Heparin 5,000 Unit/mL Inj SUBQ SCH ×3 (01:17→16:16)
[2016-06-14] MEDS: 0.9% Sodium Chloride 1,000 ML IV SCH ×2 (04:12→14:07)
--- NOTE | 2016-06-14 05:30 | NUR ---
Activity Patient up with SBA and FWW, ambulated in hallway. Pain controlled with Fentanyl patch and chronic Right shoulder arthritic pain treated with Kpad for comfort at this time, no requests for further pain management. Hourly rounding ongoing.
[2016-06-14 06:06] VITALS: BP 104/56; PULSE 63; RESP 16; O2SAT 96
[2016-06-14 06:33] LABS: Magnesium 1.6 mg/dL (1.6-2.6); Phosphorus 4.7 mg/dL (2.5-4.9); Unsaturated Iron Binding 214.4 ug/dL
[2016-06-14] MEDS: HYDROcodone-APAP 5-325 mg Tablet PO PRN ×3 (07:49→22:33)
[2016-06-14] MEDS: Verapamil SR 240 mg ER12 Tablet PO SCH (07:49)
[2016-06-14] MEDS: Amoxicillin-Clav 500-125 mg Tablet PO SCH ×2 (07:50→17:25)
--- NOTE | 2016-06-14 10:14 | NUR ---
[facility] Signed [id number]
--- NOTE | 2016-06-14 11:43 | NUR ---
NUTRITION FOLLOW-UP ASSESS: Pt is an 85yo F admitted for SBO. She is POD 5 for lap [place] procedure. Pt had NGT removed 06/09. Diet advanced, po intake improved. PMHX: SBO, TIA, HTN, CKD stg 3, HLD, Pancreatitis, UTI, Dysphagia LABS: Reviewed. Glu 97,Cr 1.54,Alb 3.0 MEDS: Reviewed. Lasix, zofran GI: 4 BM SKIN: Jadon 18. Pt goes to outpt wound care for venous stasis wounds to bilateral legs. CURRENT WTS: 53.2 kg, BMI 22.2kg/m2 DIET: Soft. PO 25-100% EST. NEEDS: Kcals: 1400-1680kcal/day (25-30kcal/kg) Pro: 55-70g/day (1.0-1.2g/kg) NUTRITION DIAGNOSIS: 1.) Inadequate oral intake related to decreased ability to consume sufficient energy as evidenced by current NPO status--IMPROVED NUTRITION INTERVENTION: 1.) High Kcal/protein education provided 06/12. 2.) Will add high kcal/protein supplements to diet. Ensure clear (soy/lactose free) MONITOR / EVAL: PO, GI, wt, labs, POC, nutrition status. Will continue to monitor per moderate nutrition risk guidelines.
--- NOTE | 2016-06-14 14:46 | PCM.PNNEPH ---
Subjective Date of Service Jun 14, 2016 Subjective No new complaints. Serum cr continues to improve. S/p jean-baptiste cath insertion. PVR 298 ml. Repeat renal US showed bilateral atrophic kidneys,no hydronephrosis. Exam Vital Signs Vital Sign - Last Date Time Temp Pulse Resp B/P Pulse Ox O2 Delivery O2 Flow Rate FiO2 06/14/16 06:06 36.4 63 16 104/56 96 Room Air 06/08/16 20:17 1.00 Intake and Output 06/13/16 06/13/16 06/14/16 Cumulative From/Thru 15:00 23:00 07:00 06/06/16 23:02 - 06/14/16 06:06 Intake Total 1950 ml 2016 ml 21173 ml Output Total 950 ml 750 ml 89349 ml Balance 1000 ml 1266 ml -2252 ml Intake Oral 740 ml 800 ml 3611 ml IV Total 1210 ml 1216 ml 87624 ml Output Urine Total 950 ml 750 ml 24622 ml Gastric Drainage Total 1025 ml Emesis 400 ml # Voids 17 # Bowel Movements 4 4 8 Exam General appearance: Awake, alert, oriented x3. No acute distress. thin, lying in bed comfortably. HEENT: Mild pallor. No jaundice. No JVD. No lymphadenopathy. No thyroid enlargement. Dry mucous membranes. Atraumatic. PERRLA. Heart: Regular rhythm. Normal S1, S2. No murmurs, rubs, or gallops. Lungs: Decreased breath sounds at bases. No wheezing. No rhonchi. Abdomen soft, hypoactive bowel sounds. Surgical scar is dry, clean and intact. Nontender, nondistended. Extremities: Positive for lower extremity edema under pressure wrapping. Lab and Diagnostics Result Diagram: 06/13/16 0555 06/14/16 0520 X-Rays, CTs and MRIs [facility] Diagnostic Imaging Department [place], [place] [id number] Patient Name: EDITH CALDERON MR#: [id number] [place] [facility] [place]ing Phys: Clarisa Bullard DO Date of Service: 06/13/16 0742 PROCEDURE: US RETROPERITONEAL SONOGRAM ([id number]) INDICATIONS: acute kidney injury TECHNIQUE: Real-time scanning was performed of the kidneys and bladder, with image documentation. COMPARISON: [facility], CT, CT ABD PELVIS WO CON, 06/07/2016, 0:44. FINDINGS: Kidneys: Kidneys are normal in size. Right kidney measures 8.3 cm long; left kidney measures 8.3 cm long. Right renal cortical thickness is 0.4 cm; left renal cortical thickness is 0.8 cm. Renal cortical echotexture is normal. No hydronephrosis or nephrolithiasis. No suspicious solid mass lesions. Bladder: Urinary bladder completely decompressed by presence of Jean-Baptiste catheter. Miscellaneous: No free pelvic fluid. IMPRESSION: 1. Bilateral renal atrophy with right greater than left renal cortical thinning. 2. No hydronephrosis. Dictated by: Tran Perdue MD, PhD on 06/13/2016 at 17:18 Approved by: Tran Perdue MD, PhD on 06/13/2016 at 17:19 [facility] [place] [address] Patient Name: EDITH CALDERON MR#: [id number] [place] [facility] [place] Ordering Phys: Odilon Richter MD Date of Service: 06/06/16 2322 PROCEDURE: CT ABDOMEN AND PELVIS WITHOUT CONTRAST ([id number]) INDICATIONS: 85 year-old female with mid abdominal pain and vomiting. TECHNIQUE: Intravenous contrast was not administered due to low GFR level. Noncontrast 5 mm thick sections acquired from the diaphragms to the symphysis. 5 mm coronal and sagittal reformats were then performed. For radiation dose reduction, the following was used: automated exposure control, adjustment of mA and/or kV according to patient size. COMPARISON: [facility], CT, CT ABD PELVIS W&WO CON IVP, 04/01/2016, 14:02. [facility], CT, CT ABD PELVIS WO CON, 03/13/2016, 21:38. [facility], CT, CT ABD PELVIS WO CON, 01/19/2016, 22:42. FINDINGS: Preliminary interpretation rendered by [facility]. Image quality: Metallic streak artifact from epigastric and cholecystectomy surgical clips, as well as left hip arthroplasty hardware, obscure adjacent bony and/or soft tissue structures. ABDOMEN: Lung bases: Lung bases are clear. Heart size is normal. Large hiatal hernia is again noted. Solid organs: Liver and spleen are normal in size. Gallbladder is surgically absent. Pancreas is normal in contours. No adrenal nodules. Kidneys are normal in size, with mild bilateral hydronephrosis. No kidney stones. Peritoneum and bowel: There is recurrent severe dilation of the stomach, as well as proximal and mid portions of the duodenum. More distal small bowel loops demonstrate normal wall thickness and caliber. There is sigmoid colon diverticulosis. No free fluid or air. Nodes and vessels: No retroperitoneal or mesenteric adenopathy by size criteria. Aorta and inferior vena cava are normal in caliber, with mild aortoiliac atherosclerosis. Miscellaneous: No ventral hernias. PELVIS: Genitourinary: Bladder wall thickness is normal. The uterus is not well seen, and may be surgically absent or simply obscured by metallic streak artifact. Postmenopausal ovaries are also not well seen. Miscellaneous: No inguinal hernias or adenopathy. Bones: No suspicious bony lesions. No vertebral body compression fractures. Patient is status post left hip hemiarthroplasty as before. IMPRESSION: 1. Findings of recurrent high grade bowel obstruction, with transition point involving the third portion of the duodenum. 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 No current findings to suggest bowel ischemia. 2. Sigmoid colon diverticulosis. 3. Large retrocardiac hiatal hernia. 4. Mild bilateral hydronephrosis appears new since February 2016, and may reflect vesicoureteral reflux. Dictated by: Julio Broderick M.D. on 06/07/2016 at 8:01 Approved by: Julio Broderick M.D. on 06/07/2016 at 8:16 12-lead ECG Sinus rhythm with rate of 98, borderline [place] elongation at 207 Plan Impression ASSESSMENT: 1. Acute kidney injury on chronic kidney disease. ischemic ATN, urinary retention. improving with IVF and jean-baptiste cath insertion. 2. CKD with atrophic kidney in the setting of longstanding HTN. - likely due to hypertensive nephrosclerosis. 3. Recurrent small bowel obstruction, status post Byron's procedure. 4. Hypertension with hypertensive nephrosclerosis. 5. Chronic anemia, low SI, low TIBC, low Tsat and low ferritin suspected a combination of BARB and anemia of CKD. 6. Chronic lower extremity swelling due to lymphedema. 7. Hypothyroid. Plan: d/c IVF. Start bladder training. D/c jean-baptiste in am. Continue only verapamil for now, hold if BP < 130/80, HR < 55. Repeat BMP in am. add FESO4 and aranesp. Dash Edge MD Jun 14, 2016 14:46
[2016-06-14] MEDS ORDERED: Darbepoetin Alfa 40 mCg/0.4 mL Inj SUBQ ONE (14:50)
[2016-06-14 15:29] VITALS: BP 113/47; PULSE 53; RESP 16; O2SAT 99
--- NOTE | 2016-06-14 15:36 | PROG NOTE ---
[address] [address] PROGRESS NOTE PATIENT: EDITH CALDERON : 1930 MR#: [id number] ADMIT: 06/07/2016 JOB ID: [id number] DATE: 06/14/2016 The patient is seen in followup for her recent laparoscopic Manuel's procedure for intestinal malrotation. The patient has done well over the weekend. She is having bowel movements and tolerating a soft diet. She had a bump in her creatinine, prompting Nephrology consult. She has remained afebrile and hemodynamically normal. This morning, she is very alert and oriented. She looks the most normal I have seen her in quite some time. Her abdomen is inspected. Incisions look fine. Her white blood cell count yesterday was normal at 8.2. Her creatinine today has trended down from 1.9 yesterday to 1.5 today. ASSESSMENT AND PLAN: This is an 85-year-old female, almost a week out from laparoscopic Cherokee's procedure for intestinal malrotation with recurrent duodenum obstruction. From my standpoint, she is doing well. She is tolerating a soft diet. She can be discharged whenever cleared by the medical team.
--- NOTE | 2016-06-14 16:05 | NUR ---
Social Work-continued d/c planning: Data:EMR Reviewed. Pt is on day 7 of hospitalization for SBO per H&P. Pt is not medically stable anticipate 1-2 more days. PT saw pt and then pt has not been seen since either due to high census or pt refusing. SW attempted to follow up with pt regarding SNF vs home with HH, but pt currently in with wound care. SW to follow up again with pt tomorrow. Paperwork and PASRR in the chart. SW will continue to follow. Assessment:SNF vs home with HH. Plan:Pt has been accepted at [facility]. SW to follow up with pt post PT evaluation. Paperwork and PASRR in the chart. SW will continue to follow. ALICIA Morel
--- NOTE | 2016-06-14 16:45 | NUR ---
Wound Care Patient seen at bedside for wound care, Dr Clarisa Bullard visualized wounds while dressings were off. Right leg is without stasis ulcerations at this time but was rewrapped to control her edema. Left leg still is ulcerated in the pretibial area with a cluster of 5 wounds measuring 7 cm L x 5.5 cm W x 0.2 cm D. These wounds were cleaned with saline and gauze then leg was dressed with iodoflex over the ulcers, abd pads and 3 layer compression wrap. Will have patient follow up in the wound center on discharge for continuation of her wound care.
--- NOTE | 2016-06-14 17:26 | PCM.PNMED ---
Subjective Date of Service Jun 14, 2016 Subjective Patient is being seen by wound care. She states that she is feeling well except her shoulder pain which is on right side. She mentions to me that Dr. Luciano was planning on doing a shoulder injection prior to her hospitalization. It appears patient now has a Mcintosh per nephro No other concerns Exam Vital Signs Vital Sign - Last Date Time Temp Pulse Resp B/P Pulse Ox O2 Delivery O2 Flow Rate FiO2 06/13/16 20:46 48 16 95 06/13/16 19:53 36.7 114/60 Room Air 06/08/16 20:17 1.00 Intake and Output 06/13/16 06/13/16 06/14/16 Cumulative From/Thru 15:00 23:00 07:00 06/06/16 23:02 - 06/13/16 20:19 Intake Total 1950 ml 75446 ml Output Total 950 ml 81289 ml Balance 1000 ml -3518 ml Intake Oral 740 ml 2811 ml IV Total 1210 ml 13264 ml Output Urine Total 950 ml 89627 ml Gastric Drainage Total 1025 ml Emesis 400 ml # Voids 17 # Bowel Movements 4 4 Exam Gen.: No acute distress laying in bed and knitting HEENT: Normocephalic, atraumatic Heart: Regular rate and rhythm no S3-S4 murmurs Lungs are clear to auscultation no crackles or wheezes Abdomen soft flat nontender nondistended no signs of skin infections Extremities: Today she had had her wrapps undone by the Wound Care, thus I Had a Chance to See Her Extremities She Has Weeping Ulcers on the Left LE. Positive for 2+ edema Neuro: No focal deficits IVs and Medications IV Fluids None Medications Reviewed: Medications were reviewed in detail Lab and Diagnostics Result Diagram: 06/13/1655 06/13/16 0555 X-Rays, CTs and MRIs [facility] Diagnostic [place] [address] Patient Name: EDITH CALDERON MR#: [id number] Location: [facility] [place] Ordering Phys: Clarisa Bullard DO Date of Service: 06/13/16 0742 PROCEDURE: US RETROPERITONEAL SONOGRAM ([id number]) INDICATIONS: acute kidney injury TECHNIQUE: Real-time scanning was performed of the kidneys and bladder, with image documentation. COMPARISON: [facility], CT, CT ABD PELVIS WO CON, 06/07/2016, 0:44. FINDINGS: Kidneys: Kidneys are normal in size. Right kidney measures 8.3 cm long; left kidney measures 8.3 cm long. Right renal cortical thickness is 0.4 cm; left renal cortical thickness is 0.8 cm. Renal cortical echotexture is normal. No hydronephrosis or nephrolithiasis. No suspicious solid mass lesions. Bladder: Urinary bladder completely decompressed by presence of Mcintosh catheter. Miscellaneous: No free pelvic fluid. IMPRESSION: 1. Bilateral renal atrophy with right greater than left renal cortical thinning. 2. No hydronephrosis. Dictated by: Tran Perdue MD, PhD on 06/13/2016 at 17:18 Approved by: Tran Perdue MD, PhD on 06/13/2016 at 17:19 [facility] Diagnostic [place] [address] Patient Name: EDITH CALDERON MR#: [id number] Location: [facility] [place] Ordering Phys: Odilon Richter MD Date of Service: 06/06/16 2322 PROCEDURE: CT ABDOMEN AND PELVIS WITHOUT CONTRAST ([id number]) INDICATIONS: 85 year-old female with mid abdominal pain and vomiting. TECHNIQUE: Intravenous contrast was not administered due to low GFR level. Noncontrast 5 mm thick sections acquired from the diaphragms to the symphysis. 5 mm coronal and sagittal reformats were then performed. For radiation dose reduction, the following was used: automated exposure control, adjustment of mA and/or kV according to patient size. COMPARISON: [facility], CT, CT ABD PELVIS W&WO CON IVP, 04/01/2016, 14:02. [facility], CT, CT ABD PELVIS WO CON, 03/13/2016, 21:38. [facility], CT, CT ABD PELVIS WO CON, 01/19/2016, 22:42. FINDINGS: Preliminary interpretation rendered by [facility]. Image quality: Metallic streak artifact from epigastric and cholecystectomy surgical clips, as well as left hip arthroplasty hardware, obscure adjacent bony and/or soft tissue structures. ABDOMEN: Lung bases: Lung bases are clear. Heart size is normal. Large hiatal hernia is again noted. Solid organs: Liver and spleen are normal in size. Gallbladder is surgically absent. Pancreas is normal in contours. No adrenal nodules. Kidneys are normal in size, with mild bilateral hydronephrosis. No kidney stones. Peritoneum and bowel: There is recurrent severe dilation of the stomach, as well as proximal and mid portions of the duodenum. More distal small bowel loops demonstrate normal wall thickness and caliber. There is sigmoid colon diverticulosis. No free fluid or air. Nodes and vessels: No retroperitoneal or mesenteric adenopathy by size criteria. Aorta and inferior vena cava are normal in caliber, with mild aortoiliac atherosclerosis. Miscellaneous: No ventral hernias. PELVIS: Genitourinary: Bladder wall thickness is normal. The uterus is not well seen, and may be surgically absent or simply obscured by metallic streak artifact. Postmenopausal ovaries are also not well seen. Miscellaneous: No inguinal hernias or adenopathy. Bones: No suspicious bony lesions. No vertebral body compression fractures. Patient is status post left hip hemiarthroplasty as before. IMPRESSION: 1. Findings of recurrent high grade bowel obstruction, with transition point involving the third portion of the duodenum. 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 No current findings to suggest bowel ischemia. 2. Sigmoid colon diverticulosis. 3. Large retrocardiac hiatal hernia. 4. Mild bilateral hydronephrosis appears new since February 2016, and may reflect vesicoureteral reflux. Dictated by: Julio Broderick M.D. on 06/07/2016 at 8:01 Approved by: Julio Broderick M.D. on 06/07/2016 at 8:16 12-lead ECG Sinus rhythm with rate of 98, borderline [place] elongation at 207 Assessment & Plan Pleasant 85yo woman with history of SBO, cholecystectomy, gut malrotation ( currently being working up for surgery as outpatient) presented to our ED via EMS with 3 hours of increasing abdominal pain and vomiting. She has a complex medical history. Abdominal pain with Nausea and vomiting likely secondary to SBO (status post JEFFREY's procedure on 06/08/2016) Diet is advanced today to soft by general surgery -Discontinue NG tube -NS 100 mL per hour: Discontinued this a.m. by nephro -Ondansetron IV PRN -PT/OT Acute renal injury: Likely due to inadequate hydration versus medications - Follow up BMP ordered at 4 PM ---- FE urea lab work is ordered: Shows renal etiology -- Urinalysis -- Phos, uric acid levels: Within normal -- A retroperitoneal ultrasound is ordered: Shows concern for atrophic kidneys, negative for hydronephrosis -- Hold nephrotoxic medications: Dr. espinosa is agreeable to plan , she asks to hold all hypertensive medications except the verapamil. We appreciate the recommendations. -- Improving creatinine is 1.5 today Acute shoulder pain: Present on admission -- We will consider injecting her right knee Kenalog prior to her discharge Postop Ileus -- declined NG tube, diet is advanced to soft diet. Doing well -- General surgery recommendations::They recommend that she continues with soft diet for 2 weeks prior to advancing to something more adventurous -- Resolved on 06/12 GI bleed chronic with chronic Anemia, perhaps secondary to report chronic gut malrotation (resolving) - consider transfusion of PRBCs if Hgb <7 -- Stable -- I did not panel ordered by Nephro and it shows iron equals 15 iron indicating iron deficiency anemia + chronic etiology -- Nephro added FESO4 and aranesp. Hypertension, -Restart home blood pressure medications: Added hydrochlorothiazide 25 daily as she continues to be hypertensive on her home medications. She was normotensive at this visit on 06/11 -- In the light of patient's deteriorated renal function, we will hold hydrochlorothiazide and losartan -- She is currently on verapamil, stable Chronic kidney disease stage III, Cr baseline of hospital labs in the last year averaging below 1.2 -Creatinine is improving Chronic lower extremity lymphedema with non-pressure ulcers -Consult wound care, she is already followed as an outpatient -furosemide 20mg by mouth daily: This is currently held per nephro. She might start needing it at least 7 occasional basis if not daily. Hypothyroidism, -Restarted home medications History of restless leg syndrome -Restarted fentanyl and ropinirole Gastroesophageal reflux disease. -Pantoprazole 20 mg by mouth Anxiety with history of chronic use of Lorazepam -Lorazepam by mouth PRN UTI, acute: Based on her cultures she is started on by mouth Augmentin. Discontinued Cipro as there is no documentation of why this was on board. Disposition: Patient is currently doing well status post surgical procedure laparoscopic Onarga's procedure. Patient is tolerating normal diet, sedentary cleared her for discharge. Discharge likely tomorrow. Pain Evaluation: Adequate Pain Control GI Prophylaxis: Proton Pump Inhibitor VTE Mechanical Devices: Intermittant Pneumatic CD Resuscitation Status: DNR/DNI:Do Not Resuscitate/Intubate Limited Interventions: Medications and IV Fluid Clarisa Bullard DO Jun 14, 2016 05:39 Clarisa Bulladr DO Jun 14, 2016 05:39
--- NOTE | 2016-06-14 18:23 | NUR ---
Activity/bladder training patient ambulated in [place] with FWW today, tolerated well. IV fluids DC'd. chronic left shoulder pain, fentanyl patch and PO [place] effective in controlling. Bladder training started at 1600hr, clamped jean-baptiste. procedure explained to patient, she verbalized understanding and agrees with plan of care. continue to monitor.
[2016-06-14] MEDS: Ondansetron 2 mg/mL 2 mL Inj IVPUSH PRN (20:08)
[2016-06-14 21:12] VITALS: BP 163/63; PULSE 51; RESP 16; O2SAT 96
[2016-06-14 22:00] VITALS: BP 136/64
[2016-06-15] MEDS: Heparin 5,000 Unit/mL Inj SUBQ SCH ×2 (00:27→08:11)
[2016-06-15] MEDS: Sodium Chloride LOK Flush 10 mL Syringe IVFLUSH SCH ×2 (00:27→08:11)
[2016-06-15] MEDS: HYDROcodone-APAP 5-325 mg Tablet PO PRN ×2 (03:20→08:13)
[2016-06-15 03:41] VITALS: PULSE 55; RESP 18; O2SAT 97
[2016-06-15 05:34] VITALS: BP 140/57; PULSE 73; RESP 16; O2SAT 94
--- NOTE | 2016-06-15 07:26 | NUR ---
Nausea/Bladder training Pt had one episode of N/V last evening. she said she thought it was from the new iron supplement. she was given zofran and her nausea improved. she stated she did not want the iron supplement anymore but she was encouraged to ask for zofran before her next iron supplement. pt jean-baptiste catheter was clamped and unclamped every 4hrs per provider orders. her jean-baptiste was removed this AM at 0630. she is currently up resting comfortably in her chair with call light within reach. care continues.
[2016-06-15] MEDS: Amoxicillin-Clav 500-125 mg Tablet PO SCH (08:11)
[2016-06-15] MEDS: Verapamil SR 240 mg ER12 Tablet PO SCH (08:13)
--- NOTE | 2016-06-15 08:47 | NUR ---
Social Work: Continued Discharge Planning Data: Pt is on day 8 of hospitalization. SW met with pt at bedside [facility]. Pt stated that she no longer wants to go to a SNF and declines any HH services. SW explained that PT recommended SNF or HH for recovery. Pt SW encouraged pt to consider PT recommendations. Pt and family was agreeable to SNF discharge but pt no longer wants services and understands that declining services is against PT recommendations. SW had previously worked with family (DPOA Connor Trey) to confirm discharge to SNF. SW will call Connor to update him on pt's choice. Assessment: Pt who would benefit from SNF or HH for rehab as per PT recommendations. Plan: Contact pt's DPOA to discuss update to original discharge plan. SW will explain PT recommendations for rehab to DPOA and determine discharge plan moving forward. ALICIA Solo
--- NOTE | 2016-06-15 08:47 | PROG NOTE ---
[address] [address] PROGRESS NOTE PATIENT: EDITH CALDERON : 1930 MR#: [id number] ADMIT: 06/07/2016 JOB ID: [id number] DATE: 06/15/2016 SUBJECTIVE: The patient is seen one week out from her laparoscopic Manuel procedure. She continues to do well. Apparently, she had a brief episode of nausea and vomiting last night which she is convinced was due to iron pills. She denies any nausea this morning. OBJECTIVE: She has remained afebrile and hemodynamically normal. This morning she is up in a chair. Alert and oriented. Appears comfortable. Her labs look fine with her creatinine trending down to 1.2. ASSESSMENT AND PLAN: This is an 85-year-old female with intestinal malrotation, a week out from a laparoscopic Manuel procedure. I anticipate she will go home today. Please have her follow up with me in three weeks in my clinic. She can maintain a diet as tolerated until then.
[2016-06-15] MEDS ORDERED: AMOX1TAB11 PO ×2 (11:37→11:46)
[2016-06-15] MEDS ORDERED: FERR-74 PO ×2 (11:37→12:21)
[2016-06-15] MEDS ORDERED: CEPH-512 PO (11:44)
[2016-06-15] MEDS ORDERED: FUR20 PO (11:48)
[2016-06-15] MEDS ORDERED: POLY17PO6 PO (11:49)
[2016-06-15] MEDS ORDERED: LOSA50TA37 PO (12:27)
--- NOTE | 2016-06-15 12:29 | PCM.DIMED ---
Discharge Instructions Date of Service Jun 15, 2016 Dates of Hospitalization Jun 07, 2016 at 01:53 Discharge Diagnosis Discharge Diagnosis SBO/Midgut malrotation s/p Manuel's procedure, Chronic GI Bleed/Anemia, UTI, HTN, Acute kidney failure, Hypothyroidism, chronic venous stasis w/ ulcers Diet Heart Healthy Activity Limited until seen by PCP Call your provider Fever or Chills, Shortness of breath, Bleeding, Chest pain, Vomitting, Excessive diarrhea, Weakness (unilateral) Patient Instructions Follow-up plan F/U with PCP in one week. F/U CBC, BMP prior to F/U with PCP F/U with Dr. Raines in 2 weeks Clarisa Bullard DO Jun 15, 2016 12:29
--- NOTE | 2016-06-15 12:36 | PCM.DC.MED ---
Discharge Summary Date of Service Jun 15, 2016 Dates of Hospitalization Date of Hospital Admission Jun 07, 2016 at 01:53 Date of Discharge: Jun 15, 2016 Providers: Admitting Physician: Toi Gibson MD Primary Care Physician: Kin Yang MD Attending Physician: Toi Gibson MD Diagnosis at Time of Discharge Diagnosis at Time of Discharge SBO/Midgut malrotation s/p Manuel's procedure, Chronic GI Bleed/Anemia, UTI, HTN, Acute kidney failure, Hypothyroidism, chronic venous stasis w/ ulcers Consultations General Surgery, PT/OT, Nephrology Procedures XRay, CTs & MRIs [facility] Diagnostic Imaging Department [place], [place] [id number] Patient Name: EDITH CALDERON MR#: [id number] Location: [facility] Ordering Phys: Clarisa Reddy DO Date of Service: 06/13/16 0742 PROCEDURE: US RETROPERITONEAL SONOGRAM ([id number]) INDICATIONS: acute kidney injury TECHNIQUE: Real-time scanning was performed of the kidneys and bladder, with image documentation. COMPARISON: [facility], CT, CT ABD PELVIS WO CON, 06/07/2016, 0:44. FINDINGS: Kidneys: Kidneys are normal in size. Right kidney measures 8.3 cm long; left kidney measures 8.3 cm long. Right renal cortical thickness is 0.4 cm; left renal cortical thickness is 0.8 cm. Renal cortical echotexture is normal. No hydronephrosis or nephrolithiasis. No suspicious solid mass lesions. Bladder: Urinary bladder completely decompressed by presence of Mcintosh catheter. Miscellaneous: No free pelvic fluid. IMPRESSION: 1. Bilateral renal atrophy with right greater than left renal cortical thinning. 2. No hydronephrosis. Dictated by: Tran Perdue MD, PhD on 06/13/2016 at 17:18 Approved by: Tran Perdue MD, PhD on 06/13/2016 at 17:19 [facility] Diagnostic Imaging Department [place], [place] [id number] Patient Name: EDITH CALDERON MR#: [id number] Location: [facility] Ordering Phys: Odilon Richter MD Date of Service: 06/06/16 2322 PROCEDURE: CT ABDOMEN AND PELVIS WITHOUT CONTRAST ([id number]) INDICATIONS: 85 year-old female with mid abdominal pain and vomiting. TECHNIQUE: Intravenous contrast was not administered due to low GFR level. Noncontrast 5 mm thick sections acquired from the diaphragms to the symphysis. 5 mm coronal and sagittal reformats were then performed. For radiation dose reduction, the following was used: automated exposure control, adjustment of mA and/or kV according to patient size. COMPARISON: [facility], CT, CT ABD PELVIS W&WO CON IVP, 04/01/2016, 14:02. [facility], CT, CT ABD PELVIS WO CON, 03/13/2016, 21:38. [facility], CT, CT ABD PELVIS WO CON, 01/19/2016, 22:42. FINDINGS: Preliminary interpretation rendered by [facility]. Image quality: Metallic streak artifact from epigastric and cholecystectomy surgical clips, as well as left hip arthroplasty hardware, obscure adjacent bony and/or soft tissue structures. ABDOMEN: Lung bases: Lung bases are clear. Heart size is normal. Large hiatal hernia is again noted. Solid organs: Liver and spleen are normal in size. Gallbladder is surgically absent. Pancreas is normal in contours. No adrenal nodules. Kidneys are normal in size, with mild bilateral hydronephrosis. No kidney stones. Peritoneum and bowel: There is recurrent severe dilation of the stomach, as well as proximal and mid portions of the duodenum. More distal small bowel loops demonstrate normal wall thickness and caliber. There is sigmoid colon diverticulosis. No free fluid or air. Nodes and vessels: No retroperitoneal or mesenteric adenopathy by size criteria. Aorta and inferior vena cava are normal in caliber, with mild aortoiliac atherosclerosis. Miscellaneous: No ventral hernias. PELVIS: Genitourinary: Bladder wall thickness is normal. The uterus is not well seen, and may be surgically absent or simply obscured by metallic streak artifact. Postmenopausal ovaries are also not well seen. Miscellaneous: No inguinal hernias or adenopathy. Bones: No suspicious bony lesions. No vertebral body compression fractures. Patient is status post left hip hemiarthroplasty as before. IMPRESSION: 1. Findings of recurrent high grade bowel obstruction, with transition point involving the third portion of the duodenum. 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 No current findings to suggest bowel ischemia. 2. Sigmoid colon diverticulosis. 3. Large retrocardiac hiatal hernia. 4. Mild bilateral hydronephrosis appears new since February 2016, and may reflect vesicoureteral reflux. Dictated by: Julio Broderick M.D. on 06/07/2016 at 8:01 Approved by: Julio Broderick M.D. on 06/07/2016 at 8:16 ECG 12 Lead Sinus rhythm with rate of 98, borderline AL elongation at 207 Invasive Procedures [place]'s Procedure for SBO on 06/08/16 Brief History Pleasant 85 yo female with history of mid-gut malrotation and prior SBO, GI bleed, HTN, GERD, TIA, CKD 3, who presented to the ED via EMS c/o nausea and vomiting onset prior to arrival. At the time of my interview she thought 3 hours had passed since starting to feel unwell. She does have some chronic abdominal discomfort and has been seeing surgeon Dr. Raines to set up surgery for her "upper abdominal malrotation". Per Dr Paniagua's note: "The patient had dinner at her daughter's place and ate "some unusual foods". She states she is allergic to soy and "must have eaten something bad". She c/o associated upper abdominal pain. She She denies CP, SOB, fever, chills, hematemesis, diarrhea." Medication in the ED did largely resolve her nausea and abdominal pain. Hospital Course Pleasant 85yo woman with history of SBO, cholecystectomy, gut malrotation ( currently being working up for surgery as outpatient) presented to our ED via EMS with 3 hours of increasing abdominal pain and vomiting. She has a complex medical history. Abdominal pain with Nausea and vomiting likely secondary to SBO (status post MANUEL's procedure on 06/08/2016) Diet is advanced today to soft by general surgery -Discontinue NG tube -NS 100 mL per hour: Discontinued this a.m. by nephro -Ondansetron IV PRN -PT/OT Acute renal injury: Likely due to inadequate hydration versus medications - Follow up BMP ordered at 4 PM ---- FE urea lab work is ordered: Shows renal etiology -- Urinalysis -- Phos, uric acid levels: Within normal -- A retroperitoneal ultrasound is ordered: Shows concern for atrophic kidneys, negative for hydronephrosis -- Hold nephrotoxic medications: Dr. espinosa is agreeable to plan , she asks to hold all hypertensive medications except the verapamil. We appreciate the recommendations. -- At the time of her d/c, Cr is back to baseline. Acute shoulder pain: Present on admission -- we are going to defer this to Dr. Fulton, he is planning to do a shoulder injection -- Continue pain management at home per PCP Postop Ileus -- declined NG tube, diet is advanced to soft diet. Doing well -- General surgery recommendations::They recommend that she continues with soft diet for 2 weeks prior to advancing to something more adventurous -- Resolved on 06/12 GI bleed chronic with chronic Anemia, perhaps secondary to report chronic gut malrotation (resolving) - consider transfusion of PRBCs if Hgb <7 -- Stable -- Iron Panel ordered by Nephro and it shows iron equals 15 iron indicating iron deficiency anemia + chronic etiology -- Nephro added FESO4 and aranesp. -- Gave her Iron for d/c and F/U lab work. Hypertension, -Restart home blood pressure medications: Added hydrochlorothiazide 25 daily as she continues to be hypertensive on her home medications. She was normotensive at this visit on 06/11 -- In the light of patient's deteriorated renal function, we will hold hydrochlorothiazide and losartan -- She is currently on verapamil, stable -- Added back 1/2 dose of Losartan (50 mg) and Lasix 20 mg Q48H Chronic kidney disease stage III, Cr baseline of hospital labs in the last year averaging below 1.2 -Creatinine is improving Chronic lower extremity lymphedema with non-pressure ulcers -Consult wound care, she is already followed as an outpatient -furosemide 20mg by mouth daily: This is currently held per nephro. -- She is asked to take it Q48H at d/c Hypothyroidism, -Restarted home medications History of restless leg syndrome -Restarted fentanyl and ropinirole Gastroesophageal reflux disease. -Pantoprazole 20 mg by mouth Anxiety with history of chronic use of Lorazepam -Lorazepam by mouth PRN UTI, acute: Based on her cultures she is started on by mouth Augmentin. Discontinued Cipro as there is no documentation of why this was on board. -- 2 more days of augmentin Disposition: Patient is currently doing well status post surgical procedure laparoscopic [place]'s procedure. Patient is tolerating normal diet, sedentary cleared her for discharge. Discharge likely tomorrow. Exam Vital Signs (Last) Date Time Temp Pulse Resp B/P Pulse Ox O2 Delivery O2 Flow Rate FiO2 06/15/16 05:34 37.0 73 16 140/57 94 Room Air Exam Gen.: No acute distress laying in bed and knitting HEENT: Normocephalic, atraumatic Heart: Regular rate and rhythm , 1+ systolic murmur w/o radiation to neck Lungs are clear to auscultation no crackles or wheezes Abdomen soft flat nontender nondistended no signs of skin infections Extremities: There is rapid in dressings again compression dressings. Positive for 2+ edema Neuro: No focal deficits Test 06/06/16 23:18 06/06/16 23:45 06/07/16 05:45 06/08/16 05:10 Band Neutrophils % 0% (1-5) Hold Purple Top Tube Received (Received) Prothrombin Time 9.9sec (8.1-12.5) Prothromb Time International Ratio 0.93ratio Hold Blue Top Tube Received (Received) Hold Mckenney Top Tube Received (Received) Lactic Acid Level 0.8mmol/L (0.4-2.0) Hold Evans Top Tube Received (Received) Neutrophils (%) (Auto) 89.8% (40-74) Lymphocytes (%) (Auto) 5.9% (14-46) Monocytes (%) (Auto) 4.0% (4-12) Eosinophils (%) (Auto) 0.1% (0-5) Basophils (%) (Auto) 0.1% (0-3) C-Reactive Protein 0.1mg/dL (0.0-0.5) Lipase 15U/L (13-60) Test 06/08/16 16:38 06/09/16 07:43 06/10/16 05:25 06/12/16 15:30 Hold Urine Received (Received) Total Bilirubin 0.5mg/dL (0.0-1.2) Aspartate Amino Transf (AST/SGOT) 17U/L (0-50) Alanine Aminotransferase (ALT/SGPT) 7U/L (0-32) Alkaline Phosphatase 69U/L (25-165) Total Protein 5.3g/dL (6.4-8.4) Albumin 3.0g/dL (3.4-5.0) Hemoglobin A1c 6.1% (4.8-5.6) Uric Acid 6.9mg/dL (2.6-7.2) Test 06/12/16 20:50 06/13/16 05:55 06/14/16 05:20 06/15/16 05:10 Urine Color Yellow (YELLOW) Urine Appearance Hazy (CLEAR,HAZY) Urine pH 6.0 (5.0-8.0) Urine Specific [place] 1.010 (1.003-1.035) Urine Protein Tracemg/dL (NEG,TRACE) Urine Glucose (UA) Negativemg/dL (NEGATIVE) Urine Ketones Negativemg/dL (NEGATIVE) Urine Occult Blood Negative (NEGATIVE) Urine Nitrite Negative (NEGATIVE) Urine Bilirubin Negative (NEGATIVE) Urine Urobilinogen Normalmg/dL (NORMAL) Urine Leukocyte Esterase Trace (NEGATIVE) Urine RBC 0-2/hpf (0-2) Urine WBC 0-5/hpf (0-5) Urine Epithelial Cells Few/hpf (NONE-MOD) Urine Crystals None seen (NONE SEEN) Urine Bacteria Few/hpf (NONE-FEW) Urine Hyaline Casts None/lpf (NONE) Urine Granular Casts None seen (NONE SEEN) Urine Waxy Casts None seen (NONE SEEN) Urine Red Blood Cell Casts None seen (NONE SEEN) Urine White Blood Cell Casts None seen (NONE SEEN) Urine Mucus None seen (None Seen) Urine Trichomonas None seen (NONE SEEN) Urine Yeast Few (NONE SEEN) Urinalysis Comment None Urine Culture Reflexed Indicated Urine Random Creatinine 46mg/dL (15-278) Urine Random Total Protein 23mg/dL (0-15) Urine Urea Nitrogen 232mg/dL (Not Estab.) White Blood Count 8.2th/mm3 (3.8-10.1) Red Blood Count 3.67mil/mm3 (3.90-5.20) Hemoglobin 9.3g/dL (12.0-15.6) Hematocrit 30.5% (35.0-46.0) Mean Corpuscular Volume 83.1fL (81-100) Mean Corpuscular Hemoglobin 25.3pg (27.0-35.0) Mean Corpuscular Hemoglobin Concent 30.5% (32.0-37.0) Red Cell Distribution Width 17.1% (12.3-15.4) Platelet Count 313bil/L (150-400) Phosphorus Level 4.7mg/dL (2.5-4.9) Magnesium Level 1.6mg/dL (1.6-2.6) Iron Level 15ug/dL (35-150) Total Iron Binding Capacity 229ug/dL (250-450) Percent Iron Saturation 7%sat (15-50) Unsaturated Iron Binding 214.4ug/dL Ferritin 35ng/mL (13-150) Vitamin D 25-Hydroxy 30.7ng/mL (30.0-100.0) Parathyroid Hormone (Intact) 76pg/mL (15-65) Sodium Level 137mEq/L (134-144) Potassium Level 4.0mEq/L (3.5-5.2) Chloride Level 102mEq/L (97-108) Carbon Dioxide Level 24mmol/L (18-29) Blood Urea Nitrogen 15mg/dL (8-27) Creatinine 1.29mg/dL (0.57-1.00) Estimat Glomerular Filtration Rate 56mL/min (>59) Glucose Level 113mg/dL (60-99) Calcium Level 8.5mg/dL (8.5-10.1) Discharge Medications Discharge Medications Amoxicillin/Clav K 500-125 mg (Amoxicillin/Clav K 500-125 mg) 1 Each Tablet 1 TAB PO BIDWM Prescribed by: CLARISA REDDY DO Fentanyl 75 mcg/hr Patch (Fentanyl 75 mcg/hr Patch) 1 Each Patch.td72 1 EACH TOP Q3D Prescribed by: KAMRAN PARRA MD Ferrous Sulfate (Feosol) 325 Mg Tablet 325 MG PO DAILYWM Prescribed by: CLARISA REDDY DO Furosemide (Furosemide) 20 Mg Tab 20 MG PO Q48H Prescribed by: CLARISA REDDY DO Levothyroxine (Levothyroxine) 112 Mcg Tablet 112 MCG PO DAILY (Reported) Losartan Potassium (Losartan Potassium) 100 Mg Tablet 100 MG PO DAILY (Reported ) Losartan Potassium (Losartan Potassium) 50 Mg Tablet 50 MG PO DAILY Prescribed by: CLARISA REDDY DO Omeprazole (Omeprazole) 20 Mg Tablet.dr 20 MG PO DAILY (Reported) Polyethylene Glycol 3350 (Miralax) 17 Gm Powd.pack 17 GM PO DAILY Prescribed by: CLARISA REDDY DO Potassium Chloride ER (Potassium Chloride ER) 10 Meq Tablet 10 MEQ PO DAILY TAKE WITH FOOD Prescribed by: HARIKA EVANS MD Ropinirole (Ropinirole) 2 Mg Tablet 1-2 MG PO Evening (Reported) 2-3 hours before bedtime Verapamil ER (Calan SR) 240 Mg Tablet 240 MG PO DAILY Prescribed by: NISREEN ROMAN Zolpidem (Zolpidem) 5 Mg Tablet 2.5-5 MG PO HS Prescribed by: KAMRAN PARRA MD As needed Lorazepam (Lorazepam) 1 Mg Tablet 0.5-1 MG PO Q12H PRN PRN For Anxiety Prescribed by: KAMRAN PARRA MD oxyCODONE (oxyCODONE) 10 Mg Tablet 10 MG PO Q4-6H PRN PRN For Pain Prescribed by: KAMRAN PARRA MD Followup Plan Follow-up plan F/U with PCP in one week. F/U CBC, BMP prior to F/U with PCP F/U with Dr. Raines in 2 weeks Discharge Diet: Heart Healthy Discharge Activity: Limited until seen by PCP Clarisa Reddy DO Jun 15, 2016 12:36
[2016-06-15 13:04] VITALS: BP 136/65; PULSE 64; RESP 14; O2SAT 98
[2016-06-15 13:59] VITALS: BP 101/57; PULSE 54; RESP 15; O2SAT 98
--- NOTE | 2016-06-15 14:09 | NUR ---
Social Work: Discharge Data: See continued discharge note 06/15/16. Pt is on day 8 of hospitalization. SW confirmed with pt and family that pt will go home without HH services. Pt's original discharge plan was to go to [facility] when medically stable. Pt changed her mind and is declining SNF or HH services. PT met with pt today and noted that pt is independent and ambulating. Pt stated she feels fine and does not need services. SW contacted DPOA to explain pt's decision to decline PT recommendations. SW confirmed that pt's DPOA will transport her home via POV at time of discharge. Family is agreeable to new discharge plan.SW called to confirm family was picking pt up when discharge orders were completed. Assessment: Pt who is would benefit from a SNF or HH but is declining services. Plan: Pt will discharge home today with son via POV. ALICIA Solo
--- NOTE | 2016-06-15 14:31 | PCM.PNNEPH ---
Subjective Date of Service Jun 15, 2016 Subjective Patient's renal function continues to improve. Her abdomen is with considerably less pain and she does not denies any vomiting or diarrhea. Her blood pressure is good and her intake and output for the last 24 hours 3640 in and 1758. This morning her sodium is 137, potassium 4.8, 102, bicarbonate 24, BUN and creatinine were 15 and 1.29 respectively. Exam Vital Signs Vital Sign - Last Date Time Temp Pulse Resp B/P Pulse Ox O2 Delivery O2 Flow Rate FiO2 06/15/16 13:59 36.6 54 15 101/57 98 Room Air Intake and Output 06/14/16 06/14/16 06/15/16 Cumulative From/Thru 15:00 23:00 07:00 06/06/16 23:02 - 06/15/16 05:34 Intake Total 1624 ml 1200 ml 56890 ml Output Total 1000 ml 1450 ml 20722 ml Balance 624 ml -250 ml -1878 ml Intake Oral 600 ml 1200 ml 5411 ml IV Total 1024 ml 20846 ml Output Urine Total 700 ml 1450 ml 25412 ml Stool Total 300 ml 300 ml Gastric Drainage Total 1025 ml Emesis 400 ml # Voids 17 # Bowel Movements 1 0 9 Exam HEENT examination is remarkable for some bitemporal wasting and pale sclera. Neck is supple without adenopathy, thyromegaly, or jugular venous distention. Lungs are clear to auscultation. Heart is regular and rhythmical with a soft systolic murmur. Abdomen shows some diminished bowel sounds and diffuse tympany. There is no tenderness, rebound, guarding, or masses noted. Extremities not showing any evidence of any clubbing, cyanosis, or edema. Skin turgor is good. Lab and Diagnostics Result Diagram: 06/13/16 0555 06/15/16 0510 X-Rays, CTs and MRIs [facility] Diagnostic [place] [address] Patient Name: EDITH CALDERON MR#: [id number] Location: [facility] Ordering Phys: Clarisa Bullard DO Date of Service: 06/13/16 0742 PROCEDURE: US RETROPERITONEAL SONOGRAM ([id number]) INDICATIONS: acute kidney injury TECHNIQUE: Real-time scanning was performed of the kidneys and bladder, with image documentation. COMPARISON: [facility], CT, CT ABD PELVIS WO CON, 06/07/2016, 0:44. FINDINGS: Kidneys: Kidneys are normal in size. Right kidney measures 8.3 cm long; left kidney measures 8.3 cm long. Right renal cortical thickness is 0.4 cm; left renal cortical thickness is 0.8 cm. Renal cortical echotexture is normal. No hydronephrosis or nephrolithiasis. No suspicious solid mass lesions. Bladder: Urinary bladder completely decompressed by presence of Mcintosh catheter. Miscellaneous: No free pelvic fluid. IMPRESSION: 1. Bilateral renal atrophy with right greater than left renal cortical thinning. 2. No hydronephrosis. Dictated by: Tran Perdue MD, PhD on 06/13/2016 at 17:18 Approved by: Tran Perdue MD, PhD on 06/13/2016 at 17:19 [facility] Diagnostic [place] [address] Patient Name: EDITH CALDERON MR#: [id number] Location: [facility] Ordering Phys: Odilon Richter MD Date of Service: 06/06/16 2322 PROCEDURE: CT ABDOMEN AND PELVIS WITHOUT CONTRAST ([id number]) INDICATIONS: 85 year-old female with mid abdominal pain and vomiting. TECHNIQUE: Intravenous contrast was not administered due to low GFR level. Noncontrast 5 mm thick sections acquired from the diaphragms to the symphysis. 5 mm coronal and sagittal reformats were then performed. For radiation dose reduction, the following was used: automated exposure control, adjustment of mA and/or kV according to patient size. COMPARISON: [facility], CT, CT ABD PELVIS W&WO CON IVP, 04/01/2016, 14:02. [facility], CT, CT ABD PELVIS WO CON, 03/13/2016, 21:38. [facility], CT, CT ABD PELVIS WO CON, 01/19/2016, 22:42. FINDINGS: Preliminary interpretation rendered by [facility]. Image quality: Metallic streak artifact from epigastric and cholecystectomy surgical clips, as well as left hip arthroplasty hardware, obscure adjacent bony and/or soft tissue structures. ABDOMEN: Lung bases: Lung bases are clear. Heart size is normal. Large hiatal hernia is again noted. Solid organs: Liver and spleen are normal in size. Gallbladder is surgically absent. Pancreas is normal in contours. No adrenal nodules. Kidneys are normal in size, with mild bilateral hydronephrosis. No kidney stones. Peritoneum and bowel: There is recurrent severe dilation of the stomach, as well as proximal and mid portions of the duodenum. More distal small bowel loops demonstrate normal wall thickness and caliber. There is sigmoid colon diverticulosis. No free fluid or air. Nodes and vessels: No retroperitoneal or mesenteric adenopathy by size criteria. Aorta and inferior vena cava are normal in caliber, with mild aortoiliac atherosclerosis. Miscellaneous: No ventral hernias. PELVIS: Genitourinary: Bladder wall thickness is normal. The uterus is not well seen, and may be surgically absent or simply obscured by metallic streak artifact. Postmenopausal ovaries are also not well seen. Miscellaneous: No inguinal hernias or adenopathy. Bones: No suspicious bony lesions. No vertebral body compression fractures. Patient is status post left hip hemiarthroplasty as before. IMPRESSION: 1. Findings of recurrent high grade bowel obstruction, with transition point involving the third portion of the duodenum. 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 No current findings to suggest bowel ischemia. 2. Sigmoid colon diverticulosis. 3. Large retrocardiac hiatal hernia. 4. Mild bilateral hydronephrosis appears new since February 2016, and may reflect vesicoureteral reflux. Dictated by: Julio Broderick M.D. on 06/07/2016 at 8:01 Approved by: Julio Broderick M.D. 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 Recommendations #1 elderly to continue on her current medical therapy and continue to monitor her lab results and intake and output. Kin Thurston DO Jun 15, 2016 14:31
--- NOTE | 2016-06-15 14:34 | NUR ---
Discharge Note Pt c/o generalized pain this morning, rating at 6/10. PRN Justice 5/325 effective for pain. Pt up in the chair for meals. Pt verbalized understanding of all discharge instructions, medications/Rx, follow up appt and lab work. Pt ready to discharge home with all belongings accompanied by family member.
== END 2016-06-15 14:34 | disposition home or self-care (01) | DRG 335 ==
LOC: EDUNIT# 22:59 → EDBD 22:59 → SED 22:59 → OSC 06-07 01:53
PROVIDERS: ADMIT Hospitalist; ATTEND Hospitalist
PROC: 0DN94ZZ Release Duodenum, Percutaneous Endoscopic Approach (ICD-10-PCS; principal; 2016-06-08 12:30)
DX: Q43.3 Congenital malformations of intestinal fixation (principal); N17.0 Acute kidney failure with tubular necrosis; K56.5 Intestinal adhesions [bands] with obstruction (postinfection); L97.909 Non-pressure chronic ulcer of unspecified part of unspecified lower leg with unspecified severity; K56.7 Ileus, unspecified; N39.0 Urinary tract infection, site not specified; N18.3 Chronic kidney disease, stage 3 (moderate); I12.9 Hypertensive chronic kidney disease with stage 1 through stage 4 chronic kidney disease, or unspecified chronic kidney disease; K21.9 Gastro-esophageal reflux disease without esophagitis; I89.0 Lymphedema, not elsewhere classified; Z66 Do not resuscitate; M25.511 Pain in right shoulder